=== PATIENT | female | born 1950 | race Caucasian/White ===

== ENCOUNTER → 2019-03-25 | Day surgery (SDC) | payer MEDICARE ==
[2019-03-23 09:13] VITALS: BMI 24.3
[~2019-03-25] MED LIST: LACTATED RINGERS 1,000 ML IV SCH; PROPOFOL 10 MG/ML 20 ML VIAL IV ONE
--- NOTE | 2019-03-25 09:11 | P.PCN ---
Date of Procedure: 03/25/19 Procedure(s) Performed: BRIEF HISTORY: Patient is a 68-year-old pleasant white female scheduled for an elective colonoscopy as a part of screening for colorectal neoplasia. PROCEDURE PERFORMED: Colonoscopy. PREOPERATIVE DIAGNOSIS: Screening for colon cancer. IV sedation per Anesthesia. PROCEDURE: After informed consent was obtained, the patient, was brought into the endoscopy unit. IV sedation was administered by Anesthesia under continuous monitoring. Digital rectal examination was normal. Initially the Olympus CF-160 flexible video colonoscope was then inserted in the rectum, gradually advanced into the cecum without any difficulty. Careful examination was performed as the scope was gradually being withdrawn. Ileocecal valve and the appendiceal orifice were visualized and appeared normal. Prep was excellent. Mucosa of the cecum, ascending colon, transverse colon, descending colon, sigmoid colon, and rectum appeared normal. Retroflexion was performed in the rectum and no lesions were seen. The patient tolerated the procedure well. IMPRESSION: Normal-appearing colon from rectum to cecum with no evidence of colorectal neoplasia . RECOMMENDATIONS: Findings of this examination were discussed with the patient well as her family. She was advised to have a repeat screening colonoscopy in 10 years.
[2019-03-25 09:51] VITALS: RESP 18
[2019-03-25 09:52] VITALS: BP 149/84; PULSE 72
== END | disposition home or self-care (01) ==
LOC: ORWHC2ENDO 07:26
PROVIDERS: ATTEND Internal Medicine Gastroenterology
DX: Z12.11 Encounter for screening for malignant neoplasm of colon (principal); I10 Essential (primary) hypertension; G47.33 Obstructive sleep apnea (adult) (pediatric); Z99.89 Dependence on other enabling machines and devices; Z87.891 Personal history of nicotine dependence; F41.9 Anxiety disorder, unspecified; F32.9 Major depressive disorder, single episode, unspecified; E07.9 Disorder of thyroid, unspecified; Z79.890 Hormone replacement therapy; Z79.899 Other long term (current) drug therapy; Z88.1 Allergy status to other antibiotic agents
CPT/HCPCS: J2704; G0121

== ENCOUNTER → 2020-01-10 | Outpatient (CLI) | payer MEDICARE ==
--- NOTE | 2020-01-11 12:34 | MM ---
Reason for exam: screening (asymptomatic). Last mammogram was performed 2 years and 8 months ago. History: Patient is postmenopausal, history of other cancer, and had first child at age 31. Stereotactic core biopsy of the left breast. Benign lumpectomy of the right breast. Took estrogen for 10 years. Took progesterone for 10 years. Physical Findings: A clinical breast exam by your physician is recommended on an annual basis and results should be correlated with mammographic findings. MG 3D Screening Mammo W/Cad Bilateral CC and MLO view(s) were taken. Prior study comparison: May 20, 2017, mammogram. April 09, 2016, mammogram. The breast tissue is heterogeneously dense. This may lower the sensitivity of mammography. Benign appearing bilateral calcifications. No suspicious abnormality on the left. Right upper inner quadrant focal asymmetry at middle depth. ASSESSMENT: Incomplete: need additional imaging evaluation, BI-RAD 0 RECOMMENDATION: Special view mammogram of the right breast. If lesion persists on supplemental views, image directed ultrasound is recommended. [facility] will attempt to contact patient to return for supplemental views and ultrasound if indicated.
== END | disposition home or self-care (01) ==
LOC: RADMAMWWP 13:03
PROVIDERS: ATTEND Family Medicine
DX: Z12.31 Encounter for screening mammogram for malignant neoplasm of breast (principal)
CPT/HCPCS: 77063; 77067

== ENCOUNTER → 2020-01-17 | Outpatient (CLI) | payer MEDICARE ==
--- NOTE | 2020-01-18 10:36 | MM ---
Reason for exam: additional evaluation requested from abnormal screening. Last mammogram was performed less than 1 month ago. History: Patient is postmenopausal, history of other cancer, and had first child at age 31. Stereotactic core biopsy of the left breast. Benign lumpectomy of the right breast. Took estrogen for 10 years. Took progesterone for 10 years. Physical Findings: Nurse did not find any significant physical abnormalities on exam. MG 3D Work Up W/Cad RT Spot compression CC, spot compression MLO, and LM view(s) were taken of the right breast. Prior study comparison: January 10, 2020, bilateral MG 3d screening mammo w/cad. May 20, 2017, mammogram. There are scattered fibroglandular densities. The focal asymmetry does not persist. No significant new findings when compared with previous films. These results were verbally communicated with the patient and result sheet given to the patient on 01/17/20. ASSESSMENT: Negative, BI-RAD 1 RECOMMENDATION: Return to routine screening mammogram schedule for both breasts.
== END | disposition home or self-care (01) ==
LOC: RADMAMWWP 07:06
PROVIDERS: ATTEND Family Medicine
DX: R92.8 Other abnormal and inconclusive findings on diagnostic imaging of breast (principal)
CPT/HCPCS: 77065; G0279; 77061

== ENCOUNTER → 2020-08-02 | Outpatient (CLI) | payer MEDICARE ==
--- NOTE | 2020-08-02 13:09 | MR ---
EXAMINATION TYPE: MR angio head wo con DATE OF EXAM: 08/02/2020 COMPARISON: MR brain 07/17/2020 from outside institution HISTORY: Disorders of arteries, migraines, weakness TECHNIQUE: Time of flight images focusing on the [place] of [place] were performed without contrast. 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 Atrophic left A1 segment of the internal carotid artery. No evident aneurysm, dissection, or embolus. Mild asymmetry of caliber of the internal carotid arteries is note d which likely accounts for the findings on patient's brain MRI. IMPRESSION: Congenital variants. No evident aneurysm.
== END | disposition home or self-care (01) ==
LOC: RADMRIMAIN 06:40
PROVIDERS: ATTEND Family Medicine
DX: I77.9 Disorder of arteries and arterioles, unspecified (principal)
CPT/HCPCS: 70544

== ENCOUNTER → 2020-12-14 | Outpatient (CLI) | payer MEDICARE ==
--- NOTE | 2020-12-14 21:16 | MR ---
EXAMINATION TYPE: MR cervical spine wo con DATE OF EXAM: 12/14/2020 COMPARISON: HISTORY: Recurrent falls, neck pain, off balance, abnormal gait, paraparesis and headaches for 10 yea rs. TECHNIQUE: Multiplanar, multisequence images of the cervical spine were acquired. C2-C3: No evidence for degenerative disc disease. No disc bulge/herniation or protrusion. No Canal stenosis. Foramina are patent bilaterally. C3-C4: No evidence for degenerative disc disease. No disc bulge/herniation or protrusion. No Canal stenosis. Foramina are patent bilaterally. C4-C5: No evidence for degenerative disc disease. No disc bulge/herniation or protrusion. No Canal stenosis. Foramina are patent bilaterally. C5-C6: Minimal posterior disc bulge causes only slight anterior mass effect on the thecal sac. No for aminal encroachment. C6-C7: Posterior extension of endplate disc complex causes mild anterior mass effect on the thecal sa c, uncovertebral joint hypertrophy results in some mild bilateral foraminal encroachment. C7-T1: Minimal posterior disc bulge is present. There is some facet arthropathy change. No significan t foraminal encroachment. Cervical segments are intact. There is normal alignment. Cervical spinal cord is of normal signal. Craniovertebral junction relationships are within normal limits. The tip of C2 appears absent. Cerv ical vertebral bodies show preserved height and alignment. There is spondylosis most notably at C5-6 and C6-7, there is associated loss of disc height and signal at C4-5, C5-6 and C6-7, C7-T1. There is no significant spinal stenosis. IMPRESSION: The odontoid process of C2 appears absent, possibly a chronic finding, there are degenerative disc ch anges without significant spinal stenosis. Findings suggest dens hypoplasia. Consider CT correlation.
== END | disposition home or self-care (01) ==
LOC: RADMRIMAIN 16:43
PROVIDERS: ATTEND Psychiatry & Neurology Neurology
DX: M50.13 Cervical disc disorder with radiculopathy, cervicothoracic region (principal); M99.71 Connective tissue and disc stenosis of intervertebral foramina of cervical region; G82.20 Paraplegia, unspecified
CPT/HCPCS: 72141

== ENCOUNTER → 2021-04-18 | Outpatient (CLI) | payer MEDICARE ==
--- NOTE | 2021-04-19 08:48 | US ---
EXAMINATION TYPE: US kidneys/renal and bladder DATE OF EXAM: 04/18/2021 COMPARISON: NONE CLINICAL HISTORY: 70-year-old female R94.4 Abnormal results of kidney function studies; bladder suspe nsion 2 years ago. TECHNIQUE: Multiple sonographic images of the kidneys and bladder are obtained. FINDINGS: EXAM MEASUREMENTS: Right Kidney: 9.8 x 5.9 x 4.7 cm Left Kidney: 10.8 x 4.3 x 3.8 cm Right Kidney: superior mid cortical cyst seen =2.2 x 2.0 x 2.2cm; inferior cortical cyst seen = 3.3 x 4.7 x 2.4cm. No hydronephrosis. Left Kidney: No hydronephrosis or masses seen Bladder: Partially distended bladder shows no gross abnormality. Bilateral Jets seen: no, only left ureteral jet was seen within 3 minute observation Post Void Residual Volume: patient not able to void after 10 minutes IMPRESSION: 1. No hydronephrosis. A couple benign renal cysts on the right measuring up to 4.7 cm. 2. The bladder is partially distended and the patient is unable to void after 10 minutes of waiting. If concern for urinary retention, consider a follow-up bladder ultrasound after more optimally disten ding the bladder.
== END | disposition home or self-care (01) ==
LOC: RADUSWWP 16:11
PROVIDERS: ATTEND Family Medicine
DX: N28.1 Cyst of kidney, acquired (principal)
CPT/HCPCS: 76770

== ENCOUNTER 2021-12-14 10:17 | Inpatient (IN) | payer MEDICARE ==
[2021-12-14] MEDS ORDERED: MORPHINE SULFATE 4 MG/ML SYRINGE IV STA (13:10)
--- NOTE | 2021-12-14 13:13 | ED ---
General Adult HPI - General Chief complaint: Back Pain/Injury Stated complaint: Fall,Back Spasms Time Seen by Provider: 12/14/21 12:41 Source: patient Mode of arrival: EMS Limitations: no limitations - History of Present Illness Initial comments: Dictation was produced using [employer] dictation software. please excuse any grammatical, word or spelling errors. Chief Complaint: 71-year-old female presents to the emergency Department with back pain History of Present Illness: Patient's 71-year-old female presents emergency department for ongoing back pain. She was seen at [facility] yesterday. Yesterday prior to being seen in the emergency department she fell. There are 4 steps to patient's front door she is climbing up the steps when she fell back landing on her lower back and buttocks. She is brought to [facility] where they did perform CT head and C-spine and x-rays all seemed unremarkable. She was sent home. She was by herself her daughter brought her to our emergency department because she didn't like that this morning she was unable to perform activities of daily living due to pain. Patient states the pain is to her lower lumbar midline back. States that it's severely painful whenever she moves. The ROS documented in this emergency department record has been reviewed and confirmed by me. Those systems with pertinent positive or negative responses have been documented in the HPI. All other systems are other negative and/or noncontributory. PHYSICAL EXAM: General Impression: Alert and oriented x3, not in acute distress HEENT: Normocephalic atraumatic, extra-ocular movements intact, pupils equal and reactive to light bilaterally, mucous membranes moist. Cardiovascular: Heart regular rate and rhythm Chest: Able to complete full sentences, no retractions, no tachypnea Abdomen: abdomen soft, non-tender, non-distended, no organomegaly Musculoskeletal: Pulses present and equal in all extremities, no peripheral edema Back: Palpatory tenderness to the midline L3-L4 region Motor: no focal deficits noted Neurological: CN II-XII grossly intact, no focal motor or sensory deficits noted Skin: Intact with no visualized rashes Psych: Normal affect and mood ED course: 71-year-old female presents to emergency department for back pain. Vital Signs upon arrival are within acceptable limits. Patient given analgesics. CT of the thoracic and lumbar spine shows no evidence of trauma to the thoracic or lumbar spine. There are does appear to be several areas of degenerative changes. Documentation from [facility] was obtained via fax. Patient was in fact seen in the emergency department yesterday. She had a chest x-ray and a lumbar spine x-ray that were both negative for traumatic injuries. Should his CT of her cervical spine no evidence of issues. CT brain with no acute processes. Daughter was insistent upon patient be admitted due to patient's stability and t hat she lives home by herself. Daughter reports that they do not have family or friends I can help care for the patient over the weekend. Daughter states she'll be out of town for her son's baseball game. Spoke with sound physician, Dr. Melendez who is willing to accept patient's care to observation. - Related Data Home Medications Medication Instructions Recorded Confirmed Allergy Otc 1 tab PO DAILY 03/23/19 03/25/19 Celecoxib [CeleBREX] 200 mg PO DAILY 03/23/19 03/25/19 Ezetimibe [Zetia] 10 mg PO DAILY 03/23/19 03/25/19 Levothyroxine Sodium [Synthroid] 75 mcg PO DAILY 03/23/19 03/25/19 PARoxetine HCL [Paxil] 40 mg PO DAILY 03/23/19 03/25/19 buPROPion HCL [Wellbutrin XL] 300 mg PO DAILY 03/23/19 03/25/19 Allergies Allergy/AdvReac Type Severity Reaction Status Date / Time erythromycin base AdvReac Unknown Abdominal Verified 12/14/21 14:15 Pain Review of Systems ROS Statement: Those systems with pertinent positive or pertinent negative responses have been documented in the HPI. ROS Other: All systems not noted in ROS Statement are negative. Past Medical History Past Medical History: Cancer, Hypertension, Osteoarthritis (OA), Sleep Apnea/CPAP/BIPAP, Thyroid Disorder Additional Past Medical History / Comment(s): C-PAP MACHINE , PAST HX OF HTN, SCOLIOSIS, BACK PAIN, SQUAMOUS CELL SKIN CANCER History of Any Multi-Drug Resistant Organisms: None Reported Past Surgical History: Bladder Surgery, Hysterectomy, Joint Replacement Additional Past Surgical History / Comment(s): LEFT ELBOW FX Past Anesthesia/Blood Transfusion Reactions: No Reported Reaction, Motion Sickness Past Psychological History: Anxiety, Depression Smoking Status: Never smoker Past Alcohol Use History: Occasional Past Drug Use History: None Reported - Past Family History Brother(s) Family Medical History: Cancer Additional Family Medical History / Comment(s): PROSTATE CANCER General Exam Limitations: no limitations Course Vital Signs 12/14/21 10:38 Temperature 98.2 F Pulse Rate 81 Respiratory 18 Rate Blood Pressure 162/91 O2 Sat by Pulse 97 Oximetry Disposition Clinical Impression: Debility Disposition: ADMITTED IP TO THIS HOSP Condition: Fair Referrals: Adriel Leon MD [Primary Care Provider] - 1-2 days Decision Time: 14:54
[2021-12-14] MEDS ORDERED: MORPHINE SULFATE 4 MG/ML SYRINGE IM STA (13:33)
--- NOTE | 2021-12-14 13:57 | CT ---
EXAMINATION TYPE: CT thor lumbar spine wo con DATE OF EXAM: 12/14/2021 COMPARISON: None HISTORY: Fall, back spasms CT DLP: 1250.2 mGycm Automated exposure control for dose reduction was used. FINDINGS: CT thoracic spine: The thoracic vertebral segments are normal in height and alignment and there is no fracture or sublux ation. There is moderate degenerative disc disease in the lower thoracic spine at multiple levels with parti al intervertebral disc calcification and marked spondylosis. There are also significant degenerative changes within multiple facet joints in the lower thoracic spine there is no bony encroachment of the thoracic spinal canal. The paraspinal soft tissues are unremarkable. CT lumbar spine: The lumbar vertebral segments are normal in height and there is no evidence of fracture. There is a m ild retrolisthesis of L2 on L3 and there is advanced degenerative disc disease the L2-3 disc with mar ked disc space narrowing, vacuum phenomena and spondylosis. The remaining intervertebral discs are no rmal in height. There is mild degenerative disease at the L3-4 level where there are mild discogenic endplate changes and vacuum phenomena along with mild disc space narrowing. There are marked degenerative changes of facet joints in the lower lumbar spine greatest at the L4-5 and L5-S1 levels. The sacrum and SI joints normal and there is no evidence of fracture of the sacrum or visualized pelvis. IMPRESSION: 1. NO EVIDENCE OF ACUTE TRAUMA WITHIN THE THORACIC OR LUMBAR SPINE. 2. DEGENERATIVE CHANGES DESCRIBED ABOVE.
[2021-12-14] MEDS ORDERED: MORPHINE SULFATE 4 MG/ML SYRINGE IV PRN (14:52)
[2021-12-14] MEDS ORDERED: NALOXONE 0.4 MG/ML 1 ML VIAL IV PRN (14:52)
[2021-12-14] MEDS ORDERED: ACETAMINOPHEN TAB 325 MG TAB PO PRN (15:15)
--- NOTE | 2021-12-14 15:36 | P.HPIM ---
History of Present Illness H&P Date: 12/14/21 Chief Complaint: Back pain Patient is a 71-year-old female with PMH of hypothyroidism, depression and anxiety that presents the ED for intractable back pain. Patient reports having a mechanical fall as she was attempting to walk up stairs and lost her footing yesterday. She fell backwards and hit her lower back. She denies any head trauma or loss of consciousness. She went to [facility] where workup was unrevealing. She was subsequent discharge home. Since going home yesterday, she has experienced worsening lower back pain that is been difficult for her to take care of ADLs and IADLs. This prompted her daughter to bring the patient back to the hospital. Patient currently reports lower back pain, 12 out of 10 in severity, no radiating features, throbbing in nature. Patient denies any bladder or bowel incontinence. She denies any saddle anesthesia. She denies any headache, lower extremity edema, nausea or vomiting, fever or chills, cough, chest pain, shortness of breath, palpitations, changes in urination or bowel habits. No changes in appetite or weight. She denies any dizziness, numbness/weakness/tingling of the extremities. In the ED, her vital signs were stable. CT thoracic and lumbar spine was obtained which showed no evidence of acute trauma, degenerative changes. Patient is admitted as a social admit, unable to take care of ADLs and IADLs with PT and OT consultation. Review of systems is obtained and is negative except above. General: [non toxic], [no distress], [appears at stated age] Derm: [warm], [dry] Head: [atraumatic], [normocephalic], [symmetric] Eyes: [EOMI], [no lid lag], [anicteric sclera] Mouth: [no lip lesion], [mucus membranes moist] Cardiovascular: [S1S2 reg], [no murmur] Lungs: [CTA bilateral], [no rhonchi, no rales] , [no accessory muscle use] Abdominal: [soft], [ nontender to palpation], [no guarding], [no appreciable organomegaly] Ext: [no gross muscle atrophy], [no edema], [no contractures], [Tenderness to palpation over the midline L3-L4 with bilateral paraspinal tenderness] Neuro: [ CN II-XI grossly intact], [no focal neuro deficits] Psych: [Alert], [oriented], [appropriate affect] Assessment and Plan #Acute lower back pain likely musculoskeletal sprain #Mechanical fall #Debility with inability to take care of ADLs and IADLs #[place] Chronic conditions: Hypothyroidism, depression and anxiety Patient presents with intractable lower back pain and inability to take care of ADLs and IADLs. She does live alone. Her pain will be controlled with Tylenol, [place] and morphine as needed. Fall precautions are in place. PT and OT will be consulted to work with this patient. CBC and BMP will be obtained tomorrow morning. Patient will be restarted on Synthroid for history of hypothyroidism. Restart bupropion and paroxetine for history of depression/anxiety. DVT prophylaxis: [Heparin, SCD] Discussed with: [Patient and ED physician] Anticipated discharge: [1-2 days] Anticipated discharge place: [Home versus [facility]] A total of [45] minutes was spent on the care of this complex patient more than 50% of the time was spent in counseling and care coordination. Patient names her daughter decision maker if she can't make decisions for herself. Patient would like to be NO CODE. Past Medical History Past Medical History: Cancer, Hypertension, Osteoarthritis (OA), Sleep Apnea/CPAP/BIPAP, Thyroid Disorder Additional Past Medical History / Comment(s): C-PAP MACHINE , PAST HX OF HTN, SCOLIOSIS, BACK PAIN, SQUAMOUS CELL SKIN CANCER History of Any Multi-Drug Resistant Organisms: None Reported Past Surgical History: Bladder Surgery, Hysterectomy, Joint Replacement Additional Past Surgical History / Comment(s): LEFT ELBOW FX Past Anesthesia/Blood Transfusion Reactions: No Reported Reaction, Motion Sickness Past Psychological History: Anxiety, Depression Smoking Status: Never smoker Past Alcohol Use History: Occasional Past Drug Use History: None Reported - Past Family History Brother(s) Family Medical History: Cancer Additional Family Medical History / Comment(s): PROSTATE CANCER Medications and Allergies Home Medications Medication Instructions Recorded Confirmed Type Levothyroxine Sodium [Synthroid] 75 mcg PO HS 03/23/19 12/14/21 History PARoxetine HCL [Paxil] 40 mg PO HS 03/23/19 12/14/21 History buPROPion HCL [Wellbutrin XL] 300 mg PO HS 03/23/19 12/14/21 History Diclofenac Sodium [Voltaren] 75 mg PO BID 12/14/21 12/14/21 History Allergies Allergy/AdvReac Type Severity Reaction Status Date / Time erythromycin base AdvReac Unknown Abdominal Verified 12/14/21 14:15 Pain Physical Exam Vitals: Vital Signs Temp Pulse Resp BP Pulse Ox 12/14/21 10:38 98.2 F 81 18 162/91 97 Intake and Output 12/14/21 12/14/21 12/14/21 06:59 14:59 22:59 Other: Weight 72.575 kg
[2021-12-14] MEDS: MORPHINE SULFATE 2 MG/ML SYRINGE IV PRN ×2 (16:02→20:36)
[2021-12-14] MEDS: SODIUM CHLORIDE 0.9% 1,000 ML IV SCH (16:02)
[2021-12-14] MEDS: HEPARIN SODIUM,PORCINE/PF 5,000 UNIT/0.5 ML SYRINGE SQ SCH (16:02)
[2021-12-14] MEDS: buPROPion XL 300 MG TAB.ER.24H PO SCH (20:37)
[2021-12-14] MEDS: PARoxetine 20 MG TAB PO SCH (20:37)
[2021-12-14] MEDS: LEVOTHYROXINE 75 MCG TAB PO SCH (20:37)
[2021-12-15] MEDS: HEPARIN SODIUM,PORCINE/PF 5,000 UNIT/0.5 ML SYRINGE SQ SCH ×4 (01:36→20:13)
[2021-12-15] MEDS: MORPHINE SULFATE 2 MG/ML SYRINGE IV PRN ×3 (01:36→19:52)
[2021-12-15] MEDS: HYDROcodone/APAP 5-325MG 1 EACH TAB PO PRN ×2 (08:04→16:20)
[2021-12-15 08:57] LABS: Basophils # (A) 0.03 X 10*3/uL (0.00-0.10); Basophils % (A) 0.5 %; Eosinophils # (A) 0.21 X 10*3/uL (0.04-0.35); Eosinophils % (A) 3.7 %; HCT 38.7 % (37.2-46.3); HGB 12.2 g/dL (12.0-15.0); Immature Grans, Automated 0.4 %; Lymphocytes # (A) 0.74 X 10*3/uL (0.90-5.00); Lymphocytes % (A) 13.1 %; MCHC 31.5 g/dL (32.0-37.0); MCV 98.5 fL (80.0-97.0); Mean Platelet Volume 11.6 fL (9.5-12.2); Monocytes # (A) 0.93 X 10*3/uL (0.20-1.00); Monocytes % (A) 16.4 %; NRBC Per 100 WBC 0 /100 WBCS (0.0-0.0); Neutrophils # (A) 3.74 X 10*3/uL (1.80-7.70); Neutrophils % (A) 65.9 %; Platelet Count 165 X 10*3/uL (140-440); RBC 3.93 X 10*6/uL (4.10-5.20); RDW 12.4 % (11.5-14.5); WBC 5.67 X 10*3/uL (4.50-10.00)
[2021-12-15 11:40] LABS: African American GFR (CKD) 73.5 (60.0-200.0); Anion Gap 10.8 mmol/L (10.00-18.00); BUN/Creat Ratio 18.11 Ratio (12.00-20.00); Blood Urea Nitrogen 16.3 mg/dL (9.0-27.0); Calcium 8.6 mg/dL (8.7-10.3); Carbon Dioxide 25.2 mmol/L (20.0-27.5); Non-African American GFR(CKD) 63.4 (60.0-200.0)
--- NOTE | 2021-12-15 13:55 | P.PN ---
Subjective Progress Note Date: 12/15/21 Principal diagnosis: Debility Patient was seen and examined. No acute events overnight. Patient continues to report back pain. Using morphine and [place] regularly. Fearful of going home given her symptoms. She is concerned about her ability to performed ADLs and IADLs. Objective - Vital Signs Vital signs: Vital Signs Temp 98.2 F 12/15/21 07:00 Pulse 70 12/15/21 07:00 Resp 16 12/15/21 07:00 BP 194/93 12/15/21 07:00 Pulse Ox 94 L 12/15/21 07:00 Intake & Output 12/14/21 12/15/21 12/15/21 18:59 06:59 18:59 Intake Total 59 Balance 59 Weight 72.575 kg Intake: Oral 59 Other: Voiding Method Bedside Commode Bedside Commode Diaper External Catheter # Voids 1 - Exam General: [non toxic], [no distress], [appears at stated age] Derm: [warm], [dry] Head: [atraumatic], [normocephalic], [symmetric] Eyes: [EOMI], [no lid lag], [anicteric sclera] Mouth: [no lip lesion], [mucus membranes moist] Cardiovascular: [S1S2 reg], [no murmur] Lungs: [CTA bilateral], [no rhonchi, no rales] , [no accessory muscle use] Ext: [no gross muscle atrophy], [no edema], [no contractures], [Tenderness to palpation over the midline L3-L4 with bilateral paraspinal tenderness] Neuro: [no focal neuro deficits] Psych: [Alert], [oriented], [appropriate affect] - Labs CBC & Chem 7: 12/15/21 06:28 12/15/21 06:28 Labs: Abnormal Lab Results - Last 24 Hours (Table) 12/15/21 12/15/21 Range/Units 06:28 06:28 RBC 3.93 L (4.10-5.20) X 10*6/uL MCV 98.5 H (80.0-97.0) fL MCHC 31.5 L (32.0-37.0) g/dL Lymphocytes # 0.74 L (0.90-5.00) X 10*3/uL Calcium 8.6 L (8.7-10.3) mg/dL Assessment and Plan Assessment: #Acute lower back pain likely musculoskeletal sprain #Mechanical fall #Debility with inability to take care of ADLs and IADLs #Scoliosis #Macrocytosis Chronic conditions: Hypothyroidism, depression and anxiety Patient presents with intractable lower back pain and inability to take care of ADLs and IADLs. She does live alone. Her pain will be controlled with Tylenol, [place] and morphine as needed. Fall precautions are in place. PT and OT will be consulted to work with this patient. Patient will be restarted on Synthroid for history of hypothyroidism. Restart bupropion and paroxetine for history of depression/anxiety. B12 and Folic acid will be ordered. DVT prophylaxis: [Heparin, SCD] Discussed with: [Patient] Anticipated discharge place: [Home versus [facility]] A total of [45] minutes was spent on the care of this complex patient more than 50% of the time was spent in counseling and care coordination. Patient names her daughter decision maker if she can't make decisions for herself. Patient would like to be NO CODE. Patient with continued back pain. PT and OT consult not available today. She is pending clinical improvement. May need SNF. Will switch patient to inpatient as she is an unsafe discharge home.
[2021-12-15] MEDS: SODIUM CHLORIDE 0.9% 1,000 ML IV SCH (19:47)
[2021-12-15] MEDS: LEVOTHYROXINE 75 MCG TAB PO SCH (19:52)
[2021-12-15] MEDS: PARoxetine 20 MG TAB PO SCH (19:52)
[2021-12-15] MEDS: buPROPion XL 300 MG TAB.ER.24H PO SCH (19:52)
[2021-12-16] MEDS: MORPHINE SULFATE 2 MG/ML SYRINGE IV PRN ×3 (04:37→21:20)
[2021-12-16] MEDS: HYDROcodone/APAP 5-325MG 1 EACH TAB PO PRN ×2 (07:22→17:29)
[2021-12-16] MEDS: HEPARIN SODIUM,PORCINE/PF 5,000 UNIT/0.5 ML SYRINGE SQ SCH ×3 (07:23→21:19)
--- NOTE | 2021-12-16 10:53 | P.PN ---
Subjective Progress Note Date: 12/16/21 Principal diagnosis: Debility Patient was seen and examined. No acute events overnight. Patient continues to report back pain, 10/10 with movement. Using morphine and Babylon regularly. Fearful of going home given her symptoms. She is concerned about her ability to performed ADLs and IADLs. Objective - Vital Signs Vital signs: Vital Signs Temp 97.7 F 12/16/21 07:00 Pulse 77 12/16/21 07:00 Resp 16 12/16/21 07:00 BP 188/87 12/16/21 07:00 Pulse Ox 93 L 12/16/21 07:00 Intake & Output 12/15/21 12/16/21 12/16/21 18:59 06:59 18:59 Intake Total 179 118 Output Total 1200 Balance 179 -1200 118 Intake: Oral 179 118 Output: Urine 1200 Other: Voiding Method Bedside Commode External Catheter Diaper External Catheter # Voids 1 1 # Bowel Movements 0 - Exam General: [non toxic], [no distress], [appears at stated age] Derm: [warm], [dry] Head: [atraumatic], [normocephalic], [symmetric] Eyes: [EOMI], [no lid lag], [anicteric sclera] Mouth: [no lip lesion], [mucus membranes moist] Cardiovascular: [S1S2 reg], [no murmur] Lungs: [CTA bilateral], [no rhonchi, no rales] , [no accessory muscle use] Ext: [no gross muscle atrophy], [no edema], [no contractures], [Tenderness to palpation over the midline L3-L4 with bilateral paraspinal tenderness] Neuro: [no focal neuro deficits] Psych: [Alert], [oriented], [appropriate affect] - Labs CBC & Chem 7: 12/15/21 06:28 12/15/21 06:28 Labs: Abnormal Lab Results - Last 24 Hours (Table) 12/15/21 Range/Units 06:28 Calcium 8.6 L (8.7-10.3) mg/dL Assessment and Plan Assessment: #Acute lower back pain likely musculoskeletal sprain #Mechanical fall #Debility with inability to take care of ADLs and IADLs #Scoliosis #Macrocytosis Chronic conditions: Hypothyroidism, depression and anxiety Patient presents with intractable lower back pain and inability to take care of ADLs and IADLs. She does live alone. Her pain will be controlled with Tylenol, Babylon and morphine as needed. Lidocaine patch and Diclofenac gel will be added to her pain regimen. Fall precautions are in place. PT and OT will be consulted to work with this patient. Orthopedic surgery consulted for further management. Patient will be restarted on Synthroid for history of hypothyroidism. Restart bupropion and paroxetine for history of depression/anxiety. B12 and Folic acid will be ordered. DVT prophylaxis: [Heparin, SCD] Discussed with: [Patient] Anticipated discharge place: [Home versus [facility]] A total of [20] minutes was spent on the care of this complex patient more than 50% of the time was spent in counseling and care coordination. Patient names her daughter decision maker if she can't make decisions for herself. Patient would like to be NO CODE. Patient with continued back pain. PT and OT consult not available today. Orthopedic surgery consulted. She is pending clinical improvement. May need SNF.
[2021-12-16] MEDS: LIDOCAINE 5% PATCH TOPICAL SCH (11:41)
[2021-12-16] MEDS: DICLOFENAC SODIUM GEL 100 GM TUBE TOPICAL SCH ×3 (13:04→21:22)
[2021-12-16] MEDS: SODIUM CHLORIDE 0.9% 1,000 ML IV SCH (14:30)
[2021-12-16] MEDS: LEVOTHYROXINE 75 MCG TAB PO SCH (21:20)
[2021-12-16] MEDS: buPROPion XL 300 MG TAB.ER.24H PO SCH (21:20)
[2021-12-16] MEDS: PARoxetine 20 MG TAB PO SCH (21:20)
[2021-12-17] MEDS: MORPHINE SULFATE 2 MG/ML SYRINGE IV PRN ×2 (06:54→21:07)
[2021-12-17] MEDS: HEPARIN SODIUM,PORCINE/PF 5,000 UNIT/0.5 ML SYRINGE SQ SCH ×3 (08:41→21:06)
[2021-12-17] MEDS: DICLOFENAC SODIUM GEL 100 GM TUBE TOPICAL SCH ×4 (08:42→21:08)
[2021-12-17] MEDS: LIDOCAINE 5% PATCH TOPICAL SCH (08:42)
[2021-12-17] MEDS: HYDROcodone/APAP 5-325MG 1 EACH TAB PO PRN (09:24)
[2021-12-17] MEDS: hydrALAZINE HCL 10 MG TAB PO PRN (10:04)
--- NOTE | 2021-12-17 10:54 | P.CNOR ---
History of Present Illness - [facility] Consult date: 12/17/21 Requesting physician: German Melendez Consult reason: low back pain, back pain (Thoracolumbar pain status post fall) History of present illness: Patient is very pleasant 71-year-old female who is seen in bedside for further evaluation of her thoracic and lumbar spines. She states she sustained a fall on 12/13/2021 when she lost her balance outside her house falling on concrete. Since that time she has had increased thoracolumbar pain and lower lumbar pain. She was taken to [facility] for further evaluation. Imaging was taken at the time without significant findings. She was discharged home. Her pain continued to be significant and she presented to [facility] for further evaluation. CT imaging of the thoracic and lumbar spine wa s taken showing significant degenerative changes without obvious fracture. Since her admittance to hospital on 12/14/2021 she states her thoracolumbar pain lumbar pain is not improved. She is currently receiving multiple medications for pain control including hydrocodone 5 mg/325 mg, morphine, lidocaine patch, and acetaminophen 650 mg. Patient states her pain stays specific to her thoracolumbar and lumbar spine. Her pain is exacerbated with coughing, sneezing, and bending activities. She is not experiencing any lower extremity weakness or radiculopathy bilaterally. She has good range of motion of her bilateral lower extremities. She is eating and voiding without difficulty. He does not feel her pain is well enough controlled that she could be discharged home. She's currently being seen and examined by medicine who is managing her medications. Patient is having difficulty with hypertension. Nursing states patient has been started on hydralazine. Patient's other medical conditions include macrocytosis, hypothyroidism, depression, and anxiety. Past Medical History Past Medical History: Cancer, Hypertension, Osteoarthritis (OA), Sleep Apnea/CPAP/BIPAP, Thyroid Disorder Additional Past Medical History / Comment(s): C-PAP MACHINE , PAST HX OF HTN, SCOLIOSIS, BACK PAIN, SQUAMOUS CELL SKIN CANCER History of Any Multi-Drug Resistant Organisms: None Reported Past Surgical History: Bladder Surgery, Hysterectomy, Joint Replacement Additional Past Surgical History / Comment(s): LEFT ELBOW FX Past Anesthesia/Blood Transfusion Reactions: No Reported Reaction, Motion Sickness Past Psychological History: Anxiety, Depression Smoking Status: Never smoker Past Alcohol Use History: Occasional Past Drug Use History: None Reported - Past Family History Brother(s) Family Medical History: Cancer Additional Family Medical History / Comment(s): PROSTATE CANCER Medications and Allergies Home Medications Medication Instructions Recorded Confirmed Type Levothyroxine Sodium [Synthroid] 75 mcg PO HS 03/23/19 12/14/21 History PARoxetine HCL [Paxil] 40 mg PO HS 03/23/19 12/14/21 History buPROPion HCL [Wellbutrin XL] 300 mg PO HS 03/23/19 12/14/21 History Diclofenac Sodium [Voltaren] 75 mg PO BID 12/14/21 12/14/21 History Allergies Allergy/AdvReac Type Severity Reaction Status Date / Time erythromycin base AdvReac Unknown Abdominal Verified 12/14/21 14:15 Pain Physical Examination Physical exam: Patient is awake, alert, and oriented 3 Vital signs stable Good chest excursion with deep inspiration and expiration Abdomen soft nontender Examination of thoracic and lumbar spine reveals skin is intact with no abrasions, lacerations, or bruises; no erythema, purulence or signs of infection Increased kyphosis at the thoracic spine Evidence of a lidocaine patch along the midline near the thoracolumbar junction Pain with palpation along the midline at the thoracolumbar junction and at the lower lumbar spine Dorsiflexion, plantarflexion, and extensor hallucis longus positive sustained bilaterally Lower extremity strength 5/5 bilaterally Patient is able to perform good active range of motion of bilateral lower extremities independently Straight leg test negative bilateral lower extremities No signs or symptoms of DVT; no calf pain No pain with internal and external rotation of the hips bilaterally Neurovascularly intact Results Pertinent studies: CT of the thoracic and lumbar spine taken on 12/14/2021: T12 evidence of some bony change within the vertebral body; T9-12 calcification of the intervertebral disc space and possible autofusion at these levels with large anterior osteophytic spurring; L1-2 degenerative disc disease; L2-3 significant degenerative disc disease, retrolisthesis, and vacuum disc phenomenon; L3-4 retrolisthesis - Labs Labs: Abnormal Lab Results - Last 24 Hours (Table) 12/15/21 Range/Units 06:28 Folate 4.20 L (4.40-31.00) ng/mL H & H 12/15/21 Range/Units 06:28 Hgb 12.2 (12.0-15.0) g/dL Hct 38.7 (37.2-46.3) % Result Diagrams: 12/15/21 06:28 12/15/21 06:28 Assessment and Plan Assessment: Assessment: Acute traumatic thoracolumbar pain and lower lumbar pain status post fall T12 bony change within the vertebral body T9-12 calcification of the intervertebral disc space and possible autofusion at these levels with large anterior osteophytic spurring L1-2 degenerative disc disease L2-3 significant degenerative disc disease, retrolisthesis, and vacuum disc phenomenon L3-4 retrolisthesis Difficulty with regular activities of daily living due to thoracolumbar and lower lumbar pain Hypertension Macrocytosis Hypothyroidism Depression Anxiety (1) Acute low back pain due to trauma Current Visit: Yes Status: Acute Code(s): M54.50 - LOW BACK PAIN, UNSPECIFIED; G89.11 - ACUTE PAIN DUE TO TRAUMA SNOMED Code(s): 979555805 (2) Spondylolisthesis, lumbar region Current Visit: Yes Status: Acute Code(s): M43.16 - SPONDYLOLISTHESIS, LUMBAR REGION SNOMED Code(s): 470356713757273 (3) Lumbar degenerative disc disease Current Visit: Yes Status: Acute Code(s): M51.36 - OTHER INTERVERTEBRAL DISC DEGENERATION, LUMBAR REGION SNOMED Code(s): 62440197 (4) Osteophyte Current Visit: Yes Status: Acute Code(s): M25.70 - OSTEOPHYTE, UNSPECIFIED JOINT SNOMED Code(s): 423257124729060 (5) Impaired mobility and ADLs Current Visit: Yes Status: Acute Code(s): Z74.09 - OTHER REDUCED MOBILITY; Z78.9 - OTHER SPECIFIED HEALTH STATUS SNOMED Code(s): 615987423 (6) Hypertension Current Visit: Yes Status: Acute Code(s): I10 - ESSENTIAL (PRIMARY) HYPERTENSION SNOMED Code(s): 74620886 (7) Macrocytosis Current Visit: Yes Status: Acute Code(s): D75.89 - OTHER SPECIFIED DISEASES OF BLOOD AND BLOOD-FORMING ORGANS SNOMED Code(s): 869314413 (8) Hypothyroidism Current Visit: Yes Status: Acute Code(s): E03.9 - HYPOTHYROIDISM, UNSPECIFIED SNOMED Code(s): 40144617 (9) Depression Current Visit: Yes Status: Acute Code(s): F32.A - DEPRESSION, UNSPECIFIED SNOMED Code(s): 28286581 (10) Anxiety Current Visit: Yes Status: Acute Code(s): F41.9 - ANXIETY DISORDER, UNSPECIFIED SNOMED Code(s): 72780098 Plan: Plan: 1. Patient has been seen by myself and Dr. Barron Mitchell and we have both reviewed her imaging. Patient has been experiencing significant thoracolumbar pain and lower back pain status post fall on 12/13/2021. She was seen at [facility] for further evaluation without significant findings and discharge. Her symptoms were not having any improvement and she presented to [facility] for further evaluation. Since her admission to the hospital she states her symptoms have not had any significant improvement since admittance on 12/14/2021. She continues of significant pain in her thoracolumbar spine and lower lumbar spine with any increased activities of her spine, coughing, and sneezing. She is not experiencing any lower extremity weakness or radiculopathy bilaterally. She is neurovascularly intact at the bilateral lower extremities. She is able to perform active good range of motion bilateral lower extremities have difficulty. She is eating and voiding without difficulty. Reviewing of CT imaging of the thoracic and lumbar spine does show significant degenerative changes along with some bony change at T12. She is also requiring multiple medications for pain control including hydrocodone, morphine, lidocaine patch, and Tylenol 650 mg. Given her recent fall, lack of improvement over several days, lack of good pain control with multiple pain medications, and both degenerative and bony change found on CT imaging, we will plan to obtain an MRI of the lumbar spine for further evaluation. We did request for this lumbar MRI to include T12. We also discussed patient could benefit from bracing. A prescription is written, signed, and provided to case management to obtain an LSO brace. Patient should wear this brace for comfort support during ambulation and increase activities. She should have this brace intact while working with physical therapy. Brace does not have to be worn while lying in bed or while bathing. She should avoid bending, twisting, and lifting activities. Currently, MRI of the lumbar spine with T12 included is scheduled for tomorrow, 12/18/2021. We did discuss we'll plan to follow up with her for further evaluation and to discuss her MRI results and discuss further treatment options at that time. Patient states if she was a candidate she would consider injections at her spine. We will also plan for her brace to be delivered and fitted appropriately today. Time with Patient: Greater than 30 (Including obtaining history, physical examination, reviewing of imaging, and dictation.)
--- NOTE | 2021-12-17 13:43 | P.PN ---
Subjective Patient was examined at bedside today not complaining of any new symptomatology. The pain in the back is still 610 without any significant improvement despite being on multiple pain medications. Patient has been evaluated by orthopedic service will continue to follow the recommendations. Case discussed with RN present at bedside as well. Objective - Vital Signs Vital signs: Vital Signs Temp 97.4 F L 12/17/21 07:55 Pulse 70 12/17/21 07:55 Resp 18 12/17/21 07:55 BP 195/103 12/17/21 07:55 Pulse Ox 94 L 12/17/21 07:55 Intake & Output 12/16/21 12/17/21 12/17/21 18:59 06:59 18:59 Intake Total 177 Output Total 750 100 Balance -573 -100 Intake: Intake, IV Titration 0 Amount Sodium Chloride 0.9% 1, 0 000 ml @ 20 mls/hr IV . Q24H [facility] Rx#:[id number] Oral 177 Output: Urine 750 100 - Exam General: [non toxic], [no distress], [appears at stated age] Derm: [warm], [dry] Head: [atraumatic], [normocephalic], [symmetric] Eyes: [EOMI], [no lid lag], [anicteric sclera] Mouth: [no lip lesion], [mucus membranes moist] Cardiovascular: [S1S2 reg], [no murmur] Lungs: [CTA bilateral], [no rhonchi, no rales] , [no accessory muscle use] Ext: [no gross muscle atrophy], [no edema], [no contractures], [Tenderness to palpation over the midline L3-L4 with bilateral paraspinal tenderness] Neuro: [no focal neuro deficits] Psych: [Alert], [oriented], [appropriate affect] Muscle skeletal intractable lower back pain. - Labs CBC & Chem 7: 12/15/21 06:28 12/15/21 06:28 Labs: Abnormal Lab Results - Last 24 Hours (Table) 12/15/21 Range/Units 06:28 Folate 4.20 L (4.40-31.00) ng/mL Assessment and Plan Assessment: Assessment: #Acute lower back pain likely musculoskeletal sprain #Mechanical fall #Debility with inability to take care of ADLs and IADLs #Scoliosis #Macrocytosis Chronic conditions: Hypothyroidism, depression and anxiety Plan: -Admit to medicine for close monitoring -Aspiration/fall precaution -Pain control when necessary -Orthopedics service recommendations reviewed recommending brace -PT/OT -Pending MRI to be completed tomorrow -DVT prophylaxis heparin 3 times a day
[2021-12-17] MEDS ORDERED: diazePAM 5 MG TAB PO STA (13:52)
[2021-12-17] MEDS: SODIUM CHLORIDE 0.9% 1,000 ML IV SCH (14:09)
[2021-12-17] MEDS: LEVOTHYROXINE 75 MCG TAB PO SCH (21:07)
[2021-12-17] MEDS: buPROPion XL 300 MG TAB.ER.24H PO SCH (21:07)
[2021-12-17] MEDS: PARoxetine 20 MG TAB PO SCH (21:07)
[2021-12-18] MEDS: hydrALAZINE HCL 10 MG TAB PO PRN (02:25)
[2021-12-18] MEDS: MORPHINE SULFATE 2 MG/ML SYRINGE IV PRN ×3 (02:26→21:07)
[2021-12-18] MEDS: LIDOCAINE 5% PATCH TOPICAL SCH (08:45)
[2021-12-18] MEDS: HEPARIN SODIUM,PORCINE/PF 5,000 UNIT/0.5 ML SYRINGE SQ SCH ×3 (08:45→21:07)
[2021-12-18] MEDS: HYDROcodone/APAP 5-325MG 1 EACH TAB PO PRN ×2 (08:46→16:28)
[2021-12-18] MEDS: DICLOFENAC SODIUM GEL 100 GM TUBE TOPICAL SCH ×4 (08:47→21:14)
--- NOTE | 2021-12-18 08:55 | P.PN ---
Progress Note - Text Progress Note Date: 12/18/21 Orthopedic spine: History of present illness: Patient is a very pleasant 71-year-old female who is seen and examined at bedside for follow-up evaluation of her thoracic and lumbar spine. She has not had any improvement of her symptoms since being seen and examined yesterday. She states she sustained a fall on 12/13/2021 when she lost her balance outside her house falling on concrete. Since that time she has had increased thoracolumbar pain and lower lumbar pain. She was taken to [facility] for further evaluation. Imaging was taken at the time without significant findings. She was discharged home. Her pain continued to be significant and she presented to [facility] for further evaluation. CT imaging of the thoracic and lumbar spine was taken showing significant degenerative changes without obvious fracture. Since her admittance to hospital on 12/14/2021 she states her thoracolumbar pain lumbar pain has not improved. She is currently receiving multiple medications for pain control including hydrocodone 5 mg/325 mg, morphine, lidocaine patch, and acetaminophen 650 mg. Patient states her pain stays specific to her thoracolumbar and lumbar spine. Her pain is exacerbated with coughing, sneezing, and bending activities. She is not experiencing any lower extremity weakness or radiculopathy bilaterally. She has good range of motion of her bilateral lower extremities. She is eating and voiding without difficulty. He does not feel her pain is well enough controlled that she could be discharged home. She's currently being seen and examined by medicine who is managing her medications. Patient is having difficulty with hypertension. Nursing states patient has been started on hydralazine. Patient's other medical conditions include macrocytosis, hypothyroidism, depression, and anxiety. Since being seen and examined yesterday and LSO brace has been delivered and fitted appropriately. She has kept this brace intact while working with physical therapy and during ambulation. She has not been wearing this brace while at rest. MRI imaging of the lumbar spine to include T12 was ordered yesterday. This is scheduled to be performed today at 9:15 AM. Physical exam: Patient is awake, alert, and oriented 3 Vital signs stable Good chest excursion with deep inspiration and expiration Abdomen soft nontender Patient is currently lying comfortably in bed Increased kyphosis at the thoracic spine Pain with palpation along the midline at the thoracolumbar junction and at the lower lumbar spine Dorsiflexion, plantarflexion, and extensor hallucis longus positive sustained bilaterally Lower extremity strength 5/5 bilaterally Patient is able to perform good active range of motion of bilateral lower extremities independently Straight leg test negative bilateral lower extremities No signs or symptoms of DVT; no calf pain No pain with internal and external rotation of the hips bilaterally Neurovascularly intact Pertinent studies: CT of the thoracic and lumbar spine taken on 12/14/2021: T12 evidence of some bony change within the vertebral body; T9-12 calcification of the intervertebral disc space and possible autofusion at these levels with large anterior osteophytic spurring; L1-2 degenerative disc disease; L2-3 significant degenerative disc disease, retrolisthesis, and vacuum disc phenomenon; L3-4 retrolisthesis Assessment: Acute traumatic thoracolumbar pain and lower lumbar pain status post fall T12 bony change within the vertebral body T9-12 calcification of the intervertebral disc space and possible autofusion at these levels with large anterior osteophytic spurring L1-2 degenerative disc disease L2-3 significant degenerative disc disease, retrolisthesis, and vacuum disc phenomenon L3-4 retrolisthesis Difficulty with regular activities of daily living due to thoracolumbar and lower lumbar pain Hypertension Macrocytosis Hypothyroidism Depression Anxiety Plan: 1. We will continue with our plan as set forth yesterday. Patient has been seen by myself and Dr. Barron Mitchell and we have both reviewed her imaging. Patient has been experiencing significant thoracolumbar pain and lower back pain status post fall on 12/13/2021. She was seen at [facility] for further evaluation without significant findings and discharge. Her symptoms were not having any improvement and she presented to [facility] for further evaluation. Since her admission to the hospital she states her symptoms have not had any significant improvement since admittance on 12/14/2021. She continues of significant pain in her thoracolumbar spine and lower lumbar spine with any increased activities of her spine, coughing, and sneezing. She is not experiencing any lower extremity weakness or radiculopathy bilaterally. She is neurovascularly intact at the bilateral lower extremities. She is able to perform active good range of motion bilateral lower extremities have difficulty. She is eating and voiding without difficulty. Reviewing of CT imaging of the thoracic and lumbar spine does show significant degenerative changes along with some bony change at T12. She is also requiring multiple medications for pain control including hydrocodone, morphine, lidocaine patch, and Tylenol 650 mg. Given her recent fall, lack of improvement over several days, lack of good pain control with multiple pain medications, and both degenerative and bony change found on CT imaging, we will plan to obtain an MRI of the lumbar spine for further evaluation. We did request for this lumbar MRI to include T12. The MRI is scheduled to be performed this morning at 9:15 AM. We will plan to review her MRI imaging once it is complete and available for review and will discuss further treatment options at that time. Patient states if she was a candidate she would consider injections at her spine. 2. We also discussed patient could benefit from bracing. A prescription is written, signed, and provided to case management to obtain an LSO brace. This brace was delivered and fitted appropriately yesterday. She should continue to wear this brace for comfort support during ambulation and increase activities. She has been wearing this brace while working with formal physical therapy and should continue to do so. Brace does not have to be worn while lying in bed or while bathing. She should avoid bending, twisting, and lifting activities.
--- NOTE | 2021-12-18 11:36 | MR ---
EXAMINATION TYPE: MR lumbar spine wo con DATE OF EXAM: 12/18/2021 COMPARISON: CT scan 12/14/2021 HISTORY: thoraco-lumbar pain s/p fall TECHNIQUE: T1 and T2 axial and sagittal images of the lumbar spine are submitted. FINDINGS: There is no abnormal signal seen within the visualized spinal cord or paraspinal soft tissu es. There is severe degenerative disc disease involving the lower thoracic spine with a transverse fr acture through the body of T12. This extends to the level of the posterior elements. Pedicle involvem ent is not seen with certainty. Diffuse heterogeneous marrow signal is nonspecific. Simple appearing renal cysts are noted. Liver is prominent in size. At L1-2 there is broad-based disc protrusion with moderate effacement of thecal sac. Ligamentum flavu m hypertrophy and facet arthropathy contribute to canal stenosis and mild bilateral foraminal encroac hment. At L2-3 there is severe degenerative disc disease with vacuum disc and 6 mm retrolisthesis of L5 to r elative to L3. Broad-based disc protrusion with facet arthropathy and ligamentum flavum contribute to canal stenosis and bilateral foraminal encroachment. At L3-4 there is degenerative disc disease with hypertrophic change of the facets and ligamentum flav um. There is circumferential disc bulging. Moderate to severe right foraminal encroachment and modera te left foraminal encroachment. 2 to 3 mm retrolisthesis of C3 relative to C4. At L4-5 there is degenerative disc disease. There is hypertrophic change of the facets with ligamentu m flavum hypertrophy. No Canal stenosis. Neural foramina remain patent. At L5-S1 there is degenerative disc disease with no disc herniation or canal stenosis. No foraminal e ncroachment. Advanced facet arthropathy. There appears to be dural ectasia with scalloping of the posterior margins of the vertebral segments of L4, L5, S1 and S2 levels. IMPRESSION: 1. Transverse fracture through the body of T12. Report called to the patient's nurse 11:23 AM 12/19/19 22. 2. Multilevel severe degenerative disc disease with retrolisthesis and multilevel disc protrusions. M ultilevel foraminal encroachment and canal stenosis. Diffuse marrow signal alteration can be associat ed with redistribution and/or osteoporosis. Correlate clinically to exclude lymphoproliferative disor anshu or underlying malignancy. No contrast exam available for comparison. 3. Dural ectasia with scalloping of the posterior margins of the lower lumbar vertebral segments and sacral levels.
[2021-12-18 13:19] LABS: Basophils # (A) 0.1 k/uL (0-0.2); Basophils % (A) 1 %; Eosinophils # (A) 0.2 k/uL (0-0.7); Eosinophils % (A) 2 %; HCT 44.9 % (34.0-46.0); HGB 14.2 gm/dL (11.4-16.0); Lymphocytes # (A) 0.6 k/uL (1.0-4.8); Lymphocytes % (A) 9 %; MCH 31.2 pg (25.0-35.0); MCHC 31.7 g/dL (31.0-37.0); MCV 98.3 fL (80.0-100.0); Monocytes # (A) 0.8 k/uL (0-1.0); Monocytes % (A) 12 %; Neutrophils # (A) 5.1 k/uL (1.3-7.7); Neutrophils % (A) 74 %; Platelet Count 200 k/uL (150-450); RBC 4.56 m/uL (3.80-5.40); RDW 12.3 % (11.5-15.5); WBC 6.8 k/uL (3.8-10.6)
[2021-12-18] MEDS: SODIUM CHLORIDE 0.9% 1,000 ML IV SCH (15:37)
--- NOTE | 2021-12-18 17:53 | P.PN ---
Subjective She was examined at bedside today not complaining of any worsening symptomatology. Family present at bedside case discussed regarding possible discharge home versus subacute rehab. At this time the patient is agreeable to code rehab. She does have a brace present at bedside and has been evaluated by orthopedic service as well MRI results were communicated to her by them. Objective - Vital Signs Vital signs: Vital Signs Temp 98.3 F 12/18/21 14:00 Pulse 85 12/18/21 14:00 Resp 16 12/18/21 14:00 BP 153/86 12/18/21 14:00 Pulse Ox 94 L 12/18/21 14:00 Intake & Output 12/17/21 12/18/21 12/18/21 18:59 06:59 18:59 Intake Total 118 118 Output Total 350 650 Balance -232 -650 118 Intake: Oral 118 118 Output: Urine 350 650 - Exam General: [non toxic], [no distress], [appears at stated age] Derm: [warm], [dry] Head: [atraumatic], [normocephalic], [symmetric] Eyes: [EOMI], [no lid lag], [anicteric sclera] Mouth: [no lip lesion], [mucus membranes moist] Cardiovascular: [S1S2 reg], [no murmur] Lungs: [CTA bilateral], [no rhonchi, no rales] , [no accessory muscle use] Ext: [no gross muscle atrophy], [no edema], [no contractures], [Tenderness to palpation over the midline L3-L4 with bilateral paraspinal tenderness] Neuro: [no focal neuro deficits] Psych: [Alert], [oriented], [appropriate affect] Muscle skeletal intractable lower back pain. - Labs CBC & Chem 7: 12/18/21 12:56 12/15/21 06:28 Labs: Abnormal Lab Results - Last 24 Hours (Table) 12/18/21 Range/Units 12:56 Lymphocytes # 0.6 L (1.0-4.8) k/uL Assessment and Plan Assessment: Assessment: #Acute lower back pain likely musculoskeletal sprain #Mechanical fall #Debility with inability to take care of ADLs and IADLs #Scoliosis #Macrocytosis Chronic conditions: Hypothyroidism, depression and anxiety Plan: -Admit to medicine for close monitoring -Aspiration/fall precaution -Pain control when necessary -Orthopedics service recommendations reviewed recommending brace -PT/OT -MRI completed final recommendations from orthopedic service. -Pending placement to rehab. -DVT prophylaxis heparin 3 times a day
[2021-12-18 18:37] LABS: African American GFR (CKD) 70.7 (60.0-200.0); Anion Gap 10.9 mmol/L (10.00-18.00); BUN/Creat Ratio 25.38 Ratio (12.00-20.00); Blood Urea Nitrogen 23.6 mg/dL (9.0-27.0); Calcium 9.4 mg/dL (8.7-10.3); Carbon Dioxide 28.4 mmol/L (20.0-27.5); Potassium 4.9 mmol/L (3.5-5.5)
[2021-12-18] MEDS: LEVOTHYROXINE 75 MCG TAB PO SCH (21:07)
[2021-12-18] MEDS: PARoxetine 20 MG TAB PO SCH (21:07)
[2021-12-18] MEDS: buPROPion XL 300 MG TAB.ER.24H PO SCH (21:07)
[2021-12-19] MEDS: hydrALAZINE HCL 10 MG TAB PO PRN (04:31)
[2021-12-19] MEDS: MORPHINE SULFATE 2 MG/ML SYRINGE IV PRN ×3 (08:30→21:23)
[2021-12-19] MEDS: HEPARIN SODIUM,PORCINE/PF 5,000 UNIT/0.5 ML SYRINGE SQ SCH ×3 (08:32→22:32)
[2021-12-19] MEDS: LIDOCAINE 5% PATCH TOPICAL SCH (08:33)
[2021-12-19] MEDS: DICLOFENAC SODIUM GEL 100 GM TUBE TOPICAL SCH ×4 (08:33→21:23)
[2021-12-19 09:09] LABS: Basophils # (A) 0.04 X 10*3/uL (0.00-0.10); Basophils % (A) 0.8 %; Eosinophils # (A) 0.22 X 10*3/uL (0.04-0.35); Eosinophils % (A) 4.1 %; HCT 41.3 % (37.2-46.3); HGB 13.7 g/dL (12.0-15.0); Immature Grans, Automated 0.6 %; Lymphocytes # (A) 0.74 X 10*3/uL (0.90-5.00); Lymphocytes % (A) 13.9 %; MCH 31.8 pg (27.0-32.0); MCHC 33.2 g/dL (32.0-37.0); MCV 95.8 fL (80.0-97.0); Mean Platelet Volume 11.6 fL (9.5-12.2); Monocytes # (A) 0.99 X 10*3/uL (0.20-1.00); Monocytes % (A) 18.6 %; NRBC Per 100 WBC 0 /100 WBCS (0.0-0.0); Platelet Count 191 X 10*3/uL (140-440); RBC 4.31 X 10*6/uL (4.10-5.20); RDW 12.4 % (11.5-14.5); WBC 5.32 X 10*3/uL (4.50-10.00)
[2021-12-19 10:13] LABS: African American GFR (CKD) 64.7 (60.0-200.0); Anion Gap 11.1 mmol/L (10.00-18.00); BUN/Creat Ratio 30.5 Ratio (12.00-20.00); Blood Urea Nitrogen 30.5 mg/dL (9.0-27.0); Carbon Dioxide 25.9 mmol/L (20.0-27.5); Non-African American GFR(CKD) 55.8 (60.0-200.0)
[2021-12-19] MEDS: HYDROcodone/APAP 5-325MG 1 EACH TAB PO PRN ×2 (10:53→18:08)
--- NOTE | 2021-12-19 13:24 | P.PN ---
Progress Note - Text Progress Note Date: 12/19/21 Orthopedic spine: History of present illness: Patient is a very pleasant 71-year-old female who is seen and examined at bedside for follow-up evaluation of her thoracic and lumbar spine. He presented had lumbar MRI imaging performed with inclusion of T12. She is previously fitted with an LSO brace. She has not been performing any increased activities. She has been able to perform some ambulation with her LSO brace intact. She does not feel her pain is worsening. She denies any lower extremity weakness or radiculopathy bilaterally. She is not having difficulty voiding. She is eating without difficulty. She is planning for discharge to a rehabilitation facility today. She does feel she is ready for discharge. She is currently receiving multiple medications for pain control including hydrocodone 5 mg/325 mg, morphine, lidocaine patch, and acetaminophen 650 mg. Patient states her pain stays specific to her thoracolumbar and lumbar spine. Her pain is exacerbated with coughing, sneezing, and bending activities. She's currently being seen and examined by medicine who is managing her medications. Patient does continue to have some difficulty with hypertension. Nursing states patient has been started on hydralazine. Patient's other medical conditions include macrocytosis, hypothyroidism, depression, and anxiety. Patient history: She states she sustained a fall on 12/13/2021 when she lost her balance outside her house falling on concrete. Since that time she has had increased thoracolumbar pain and lower lumbar pain. She was taken to [facility] for further evaluation. Imaging was taken at the time without significant findings. She was discharged home. Her pain continued to be significant and she presented to [facility] for further evaluation. CT imaging of the thoracic and lumbar spine was taken showing significant degenerative changes without obvious fracture. MR MRI imaging taken on 12/18/2021 did show evidence of transverse fracture through the body of T12. Physical exam: Patient is awake, alert, and oriented 3 Vital signs stable Good chest excursion with deep inspiration and expiration Abdomen soft nontender Patient is currently lying comfortably in bed Increased kyphosis at the thoracic spine Pain with palpation along the midline at the thoracolumbar junction and at the lower lumbar spine Dorsiflexion, plantarflexion, and extensor hallucis longus positive sustained bilaterally Lower extremity strength 5/5 bilaterally Patient is able to perform good active range of motion of bilateral lower extremities independently Straight leg test negative bilateral lower extremities No signs or symptoms of DVT; no calf pain No pain with internal and external rotation of the hips bilaterally Neurovascularly intact Pertinent studies: CT of the thoracic and lumbar spine taken on 12/14/2021: T12 evidence of some bony change within the vertebral body; T9-12 calcification of the intervertebral disc space and possible autofusion at these levels with large anterior osteophytic spurring; L1-2 degenerative disc disease; L2-3 significant degenerative disc disease, retrolisthesis, and vacuum disc phenomenon; L3-4 retrolisthesis MRI of the lumbar spine taken on 12/18/2021: Evidence of transverse fracture through the body of T12 extending to the posterior elements; diffuse heterogeneous marrow signal is nonspecific; L1-2 broad-based disc protrusion, retrolisthesis, degenerative disc disease, ligament of flavum hypertrophy, facet arthropathy resulting in central canal narrowing and bilateral foraminal narrowing; L2-3 retrolisthesis, degenerative disc disease, disc desiccation, and facet arthropathy resulting in bilateral neural foraminal narrowing and central canal narrowing; L3-4 disc desiccation, posterior disc bulging, and significant left-sided facet arthropathy resulting in bilateral neural foraminal stenosis; L4-5 and L5-S1 degenerative disc disease and facet hypertrophy without significant stenosis Assessment: Acute traumatic thoracolumbar pain and lower lumbar pain status post fall Transverse fracture through the body of T12 Diffuse heterogeneous marrow signal is nonspecific L2-3 and L3-4 retrolisthesis Lumbar degenerative disc disease Lumbar facet arthropathy Lumbar neural foraminal stenosis T9-12 calcification of the intervertebral disc space and possible autofusion at these levels with large anterior osteophytic spurring L1-2 degenerative disc disease L2-3 significant degenerative disc disease, retrolisthesis, and vacuum disc phenomenon Difficulty with regular activities of daily living due to thoracolumbar and lower lumbar pain Hypertension Macrocytosis Hypothyroidism Depression Anxiety Plan: 1. We will continue with our plan as set forth yesterday. Patient has been seen by myself and Dr. Barron Mitchell and we have both reviewed her imaging. Patient has been experiencing significant thoracolumbar pain and lower back pain status post fall on 12/13/2021. She was seen at [facility] for further evaluation without significant findings and discharge. Her symptoms were not having any improvement and she presented to [facility] for further evaluation. Since her admission to the hospital she states her symptoms have not had any significant improvement since admittance on 12/14/2021. She continues of significant pain in her thoracolumbar spine and lower lumbar spine with any increased activities of her spine, coughing, and sne ezing. She is not experiencing any lower extremity weakness or radiculopathy bilaterally. She is neurovascularly intact at the bilateral lower extremities. She is able to perform active good range of motion bilateral lower extremities have difficulty. She is eating and voiding without difficulty. Reviewing of lumbar MRI imaging of the thoracic and lumbar spine does show significant degenerative changes along with transverse fracture through the body of T12. We discussed based on her symptoms and imaging switched fracture at T12, she would be a candidate for a T12 kyphoplasty with biopsy. Patient states currently she would like to try to work to conservative treatment options. Yesterday a prescription is written, signed, and provided to case management to obtain an LSO brace. This brace was delivered and fitted appropriately yesterday. She should continue to wear this brace while sitting upright at greater than 45, during increase activities, during ambulation. Patient should avoid bending, twisting, and lifting activities. Brace is not have to or while lying in bed or while bathing. Following fitting of this brace, patient is clear for discharge from an orthopedic spine standpoint. Following discharge, patient may follow-up with Edy Alfaro PA-C or Dr. Barron Mitchell at [facility] in approximately 1-2 weeks for further evaluation. We did discuss if she is failing conservative treatment options, she is a candidate for surgical intervention. We did discuss the proposed surgical intervention would be a T12 kyphoplasty with biopsy. We also discussed she has other degenerative changes at her lumbar spine. We also discussed MRI imaging shows evidence of diffuse heterogeneous marrow signal which is nonspecific which could be associated with osteoporosis and/or redistribution. This was discussed with nursing as well. Patient's primary care provider should be made aware of these findings on her lumbar MRI and may proceed with further evaluation as needed. 2. Continue pain control medications as prescribed by medicine 3. Patient will continue to be seen in examed by medicine for her other medical diagnoses
--- NOTE | 2021-12-19 14:27 | P.DS ---
Providers Date of admission: 12/15/21 13:48 Attending physician: German Melendez MD Consults: 12/16/21 10:52 Consult Physician Routine Consulting Provider: Pennie Mitchell Consult Reason/Comments: Intractable back pain s/p fall Do you want consulting provider notified?: Yes Primary care physician: [facility] Course: Patient is a 71-year-old female with PMH of hypothyroidism, depression and anxiety that presents the ED for intractable back pain. Patient reports having a mechanical fall as she was attempting to walk up stairs and lost her footing yesterday. She fell backwards and hit her lower back. She denies any head trauma or loss of consciousness. She went to [facility] where workup was unrevealing. She was subsequent discharge home. Since going home yesterday, she has experienced worsening lower back pain that is been difficult for her to take care of ADLs and IADLs. This prompted her daughter to bring the patient back to the hospital. Patient currently reports lower back pain, 12 out of 10 in severity, no radiating features, throbbing in nature. Patient denies any bladder or bowel incontinence. She denies any saddle anesthesia. She denies any headache, lower extremity edema, nausea or vomiting, fever or chills, cough, chest pain, shortness of breath, palpitations, changes in urination or bowel habits. No changes in appetite or weight. She denies any dizziness, numbness/weakness/tingling of the extremities. In the ED, her vital signs were stable. CT thoracic and lumbar spine was obtained which showed no evidence of acute trauma, degenerative changes. Patient is admitted as a social admit, unable to take care of ADLs and IADLs with PT and OT consultation. Patient was evaluated by orthopedic service. Imaging was also completed including the thoracic/lumbar spine CT including lumbar spine MRI. As per orthopedic service reviewed the lumbar MRI of the thoracic and lumbar spine did show significant degenerative changes along with transverse fracture through the body of T12. They did discuss based on symptoms and imaging that she would be a candidate for T12 kyphoplasty with biopsy. Patient states currently she would like to try to her conservatively and monitor closely. Patient has been fitted for a brace as per orthopedic service. She is asked to follow up with him within 1 week of discharge. The family and patient will like to proceed with physical therapy today and arrangements to subacute rehab have been place. Patient is at bedside not complaining of any worsening symptomatology all imaging and laboratory Data the patient agreeable. Orthopedics service patient outpatient. Patient Condition at Discharge: Fair Plan - Discharge Summary Discharge Rx Participant: Yes New Discharge Prescriptions: Continue buPROPion HCL [Wellbutrin XL] 300 mg PO HS Levothyroxine Sodium [Synthroid] 75 mcg PO HS PARoxetine HCL [Paxil] 40 mg PO HS Diclofenac Sodium [Voltaren] 75 mg PO BID Discharge Medication List Levothyroxine Sodium [Synthroid] 75 mcg PO HS 03/23/19 [History] PARoxetine HCL [Paxil] 40 mg PO HS 03/23/19 [History] buPROPion HCL [Wellbutrin XL] 300 mg PO HS 03/23/19 [History] Diclofenac Sodium [Voltaren] 75 mg PO BID 12/14/21 [History] Follow up Appointment(s)/Referral(s): [facility], [NON-STAFF] - 1-2 Days Pennie Mitchell DO [Doctor of Osteopathic Medicine] - 1 Week [facility] [NON-STAFF] - As Needed (Supplier of 4 wheeled walker) Adriel Leon MD [Primary Care Provider] - 1-2 days Edy Alfaro PAC [PHYSICIAN RESEARCH/PROGRAM DIRECTOR] - 1 Week (Patient may follow-up with Edy Alfaro PA-C or Dr. Barron Mitchell at [facility] in 1-2 weeks following discharge. ) Robyn Olivas [NON-STAFF] - As Needed (Supplier of LSO brace, contact as needed) Activity/Diet/Wound Care/Special Instructions: 1. Patient should wear LSO brace for comfort and support while sitting upright at greater than 45, while working with therapy, and while ambulating; patient does not have to wear the brace while lying in bed or bathing 2. Patient must continue to wear LSO brace while working with physical therapy to increase her mobility and ambulation 3. Patient should avoid excessive bending, twisting, and lifting; no lifting greater than 10 pounds
--- NOTE | 2021-12-19 15:44 | P.CNOR ---
History of Present Illness - [facility] Consult date: 12/19/21 Consult reason: fracture History of present illness: Patient is seen and again examined today again in regards to her thoracic lumbar back pain. She has been in the hospital for several days with severe debility. She says she still having significant pain in her mid back particularly with any movement and with walking. She sounds very limited ability to try to get up and move around. She has been using her TLSO brace for the past 2 days and she feels that it feels a little bit better but still has great difficulty with any sort of independent mobilization ambulation or transfers. She denies any new pa in and lower extremity. Denies any numbness tingling or weakness in her lower extremity is. She denies any nausea or vomiting. She denies any changes in bowel bladder function. Review of Systems As stated per HPI. She is also scheduled to undergo shoulder replacement at the end of January. Past Medical History Past Medical History: Cancer, Hypertension, Osteoarthritis (OA), Sleep Apnea/CPAP/BIPAP, Thyroid Disorder Additional Past Medical History / Comment(s): C-PAP MACHINE , PAST HX OF HTN, SCOLIOSIS, BACK PAIN, SQUAMOUS CELL SKIN CANCER History of Any Multi-Drug Resistant Organisms: None Reported Past Surgical History: Bladder Surgery, Hysterectomy, Joint Replacement Additional Past Surgical History / Comment(s): LEFT ELBOW FX Past Anesthesia/Blood Transfusion Reactions: No Reported Reaction, Motion Sickness Past Psychological History: Anxiety, Depression Smoking Status: Never smoker Past Alcohol Use History: Occasional Past Drug Use History: None Reported - Past Family History Brother(s) Family Medical History: Cancer Additional Family Medical History / Comment(s): PROSTATE CANCER Medications and Allergies Home Medications Medication Instructions Recorded Confirmed Type Levothyroxine Sodium [Synthroid] 75 mcg PO HS 03/23/19 12/14/21 History PARoxetine HCL [Paxil] 40 mg PO HS 03/23/19 12/14/21 History buPROPion HCL [Wellbutrin XL] 300 mg PO HS 03/23/19 12/14/21 History Diclofenac Sodium [Voltaren] 75 mg PO BID 12/14/21 12/14/21 History Allergies Allergy/AdvReac Type Severity Reaction Status Date / Time erythromycin base AdvReac Unknown Abdominal Verified 12/14/21 14:15 Pain Physical Examination Osteopathic Statement: *. No significant issues noted on an osteopathic structural exam other than those noted in the History and Physical/Consult. - L Spine: dermatomal strength & reflexes bilateral Strength: hip flexion: 5/5 (Her legs have sustained 5 and 5 strength dorsally. Plantar flexion and EHL hip flexion and extension. She has pain in her back with motion. Her pelvis is stable to rock. She has significant tenderness to palpation and her thoracic lumbar junction around the midline. There is no skin breakdown.) Strength: knee extension: 5/5 (Her paraspinals have some spasm. She is tender to percussion. She is pain at the middle of her back with any sort of mo bilization movement and getting in and out of bed or rolling. Her neck is nontender. Her upper extremity have 5 out of 5 strength.) Results - Labs Labs: Abnormal Lab Results - Last 24 Hours (Table) 12/18/21 12/19/21 12/19/21 Range/Units 12:56 06:48 06:48 Lymphocytes # 0.74 L (0.90-5.00) X 10*3/uL Carbon Dioxide 28.4 H (20.0-27.5) mmol/L BUN 30.5 H (9.0-27.0) mg/dL Est GFR (CKD-EPI)NonAf 55.8 L (60.0-200.0) BUN/Creatinine Ratio 25.38 H 30.50 H (12.00-20.00) Ratio H & H 12/15/21 12/18/21 12/19/21 Range/Units 06:28 12:56 06:48 Hgb 12.2 14.2 13.7 (12.0-15.0) g/dL Hct 38.7 44.9 41.3 (37.2-46.3) % Result Diagrams: 12/19/21 06:48 12/19/21 06:48 - Diagnostic results Cervical MRI with contrast: report reviewed, image reviewed (The MRI of her lumbar spine including her T12 area shows evidence of acute bony change and fracture with compression at T12. There is no significant bony retropulsion. There is no significant stenosis. She has significant degenerative changes throughout her lumbar spine.) CT Scan - lumbar: report reviewed, image reviewed Assessment and Plan Assessment: Osteoporotic, acute T12 and pressure fracture with significant debility failing conservative management No acute neurologic change or deficit Inability to ambulate due to thoracic and lumbar back pain Plan: Osteoporotic, acute T12 and pressure fracture with significant debility failing conservative management No acute neurologic change or deficit Inability to ambulate due to thoracic and lumbar back pain A long discussion with patient today at bedside. She has been here in the hospital for almost a week and is really making little to no improvement. She has been treated with medications physical therapy and bracing but is not making significant progress. She has been in works to go to rehab as she is not able to do it in bed on her own or mobilize independently. We had discussed the possibility of kyphoplasty with her in her acute compression fracture at T12. Initially she was very hesitant to pursue this. However with her lack of improvement and her continued pain she's been revisiting this idea and she is interested in pursuing T12 vertebral biopsy with kyphoplasty. The patient has failed conservative treatment and is now making any significant progress. She continues to have severe pain at the midline of her back and inability to actively due to the pain at her back despite bracing and medication. She is not having neurologic deficit and her pain correlates well with the new fracture at T12. She is interested in surgical intervention for kyphoplasty T12. I discussed the risks, patient alternatives and benefits at length with her discussed the risks of bleeding risk of infection risk and need for further surgery risk of decreased loss of motion loss of function malunion nonunion nerve damage heart attack lung issues and the possibly that surgery may not alleviate her symptoms was explained. Patient elects to proceed with surgical intervention and will sign informed consent. We'll plan for surgery tomorrow in the operating room and she'll be nothing by mouth after midnight. I talked to the primary service and they are in agreement as well. Time with Patient: Greater than 30
[2021-12-19] MEDS: SODIUM CHLORIDE 0.9% 1,000 ML IV SCH (17:30)
[2021-12-19 17:36] LABS: INR 0.9 (<1.2); Partial Thromboplastin Time 35.1 sec (22.0-30.0)
[2021-12-19] MEDS: LEVOTHYROXINE 75 MCG TAB PO SCH (21:22)
[2021-12-19] MEDS: PARoxetine 20 MG TAB PO SCH (21:22)
[2021-12-19] MEDS: buPROPion XL 300 MG TAB.ER.24H PO SCH (21:22)
[2021-12-20] MEDS: HYDROcodone/APAP 5-325MG 1 EACH TAB PO PRN ×3 (07:57→22:02)
[2021-12-20] MEDS: HEPARIN SODIUM,PORCINE/PF 5,000 UNIT/0.5 ML SYRINGE SQ SCH ×2 (07:58→17:09)
[2021-12-20] MEDS: LIDOCAINE 5% PATCH TOPICAL SCH (07:59)
[2021-12-20] MEDS: DICLOFENAC SODIUM GEL 100 GM TUBE TOPICAL SCH ×4 (07:59→20:53)
[2021-12-20] MEDS ORDERED: LACTATED RINGERS 1,000 ML IV ONE (09:31)
[2021-12-20] MEDS ORDERED: ONDANSETRON 4 MG/2 ML VIAL ONE (09:33)
[2021-12-20] MEDS ORDERED: hydrALAZINE HCL 20 MG/ML 1 ML VIAL IVP ONE (09:37)
[2021-12-20] MEDS ORDERED: DEXAMETHASONE SOD PHOSPHATE 4 MG/ML 1 ML VIAL IVP ONE (09:41)
[2021-12-20] MEDS ORDERED: ONDANSETRON 4 MG/2 ML VIAL IVP ONE (09:41)
[2021-12-20] MEDS ORDERED: SUCCINYLCHOLINE CHLORIDE 100 MG/5 ML SYR IV ONE (10:19)
[2021-12-20] MEDS ORDERED: fentaNYL (PF) 50 MCG/ML 2 ML AMP ONE (10:19)
[2021-12-20] MEDS ORDERED: LIDOCAINE 2% INJ 20 MG/ML (2 ML VIAL) ONE (10:19)
[2021-12-20] MEDS ORDERED: PROPOFOL 10 MG/ML 20 ML VIAL IV ONE (10:19)
[2021-12-20] MEDS ORDERED: BUPIVACAIN-EPI 0.5%-1:200,000 30 ML VIAL SQ ONE (10:24)
[2021-12-20] MEDS ORDERED: ceFAZolin 1,000 MG VIAL IVPB ONE (10:24)
[2021-12-20] MEDS ORDERED: IOPAMIDOL M200 10 ML VIAL MISCELLANE ONE (10:24)
[2021-12-20] MEDS ORDERED: CYCLOBENZAPRINE 10 MG TAB PO PRN (11:19)
[2021-12-20] MEDS ORDERED: BENZOCAINE/MENTHOL LOZENG 1 EACH LOZENGE MUCOUS MEM PRN (11:19)
[2021-12-20] MEDS ORDERED: HYDROmorphone 0.5 MG/0.5 ML SYRINGE IVP PRN (11:19)
[2021-12-20] MEDS ORDERED: ONDANSETRON 4 MG/2 ML VIAL IVP PRN (11:19)
[2021-12-20] MEDS ORDERED: KETOROLAC 15 MG/ML 1 ML VIAL IVP PRN (11:19)
--- NOTE | 2021-12-20 11:29 | P.OP ---
Date of Procedure: 12/20/21 Preoperative Diagnosis: T12 acute vertebral compression fracture, traumatic due to fall Osteoporosis Thoracic back pain Debility with inability to ambulate due to compression fracture and back pain Postoperative Diagnosis: Same Anesthesia: GETA Pathology: other (T12 vertebral body biopsy sent to pathology) Condition: stable Disposition: PACU Description of Procedure: BRIEF OPERATIVE NOTE Preoperative Diagnosis: T12 acute vertebral compression fracture, traumatic due to fall Osteoporosis Thoracic back pain Debility with inability to ambulate due to compression fracture and back pain Postoperative Diagnosis: Same Procedure: Kyphoplasty of T12 Vertebral body biopsy of T12 Use of biplanar fluoroscopic guidance Surgeon: Dr. Mitchell Stacker Driver: None Anesthesia: General anesthesia per Dr. Rowland Estimated blood loss: Less than 10 mL Specimen: Vertebral body biopsy of T12 sent to pathology in formalin Complications: None apparent Components implanted: Bone cement approximately 8 mL Disposition: To recovery room in good stable condition. OPERATIVE INDICATIONS The patient has been having issues in their back ever since sustaining an injury. She is having severe debility and we are counseled in this regard the hospital. She has had a great deal of difficulty with any sort of mobilization and ambulation. She still unable to get up out of bed on her own and unable to even transfer on her own. He is of the pain in her mid back. She localizes pain at her thoracic lumbar junction. We tried treating her with bracing however this didn't very little to give her improved mobility. It did help with some of her pain but she was still unable to mobilize. She is found have bony deformity at T12 on her computed tomography scan which we read out and this added pursue MRI which confirmed our suspicion of fracture at T12. The patient has been through conservative treatment. They attempted conservative care with bracing however they're not having any benefit despite brace use. They continue to have significant pain and debility due to their fracture. We discussed various treatment options including surgery, and the patient wishes to proceed with surgery We discussed the risk, patient's alternatives and benefits of surgery including but not limited to, risk of bleeding risk of infection, risk of need for further surgery, risk of decreased, loss of motion, loss of function, cement extravasation, nerve damage, paralysis, heart attack, blindness and . OPERATIVE SUMMARY After discussing all the risks, patient alternatives and benefits at length, the patient elected to proceed with surgical intervention, signed informed consent, and presented for their procedure. The patient was seen and examined in the preoperative holding area and the surgical site was marked. The patient was given antibiotics and brought to the operating room. The patient was sedated and intubated by anesthesia in standard fashion. The patient was positioned on to the operating room table in a prone position on the appropriate well-padded and well molded bilateral chest rolls. We were careful to pad any bony prominences and pressure points. We were careful to maintain the patient's cervical spine and good neutral alignment and position throughout. We used 2 C-arm machines to establish biplanar fluoroscopic guidance in AP and lateral positions. We were able to localize the fractures appropriately at T12 by counting up from the sacrum and identifying bony features consistent with the MRI and computed tomography scan. The patient was prepped and draped in a normal standard fashion. An appropriate timeout and keystone protocol performed. We were able to proceed with the surgery. The local wound area was infiltrated with local anesthetic. An incision was made over the lateral aspect of the pedicle over the appropriate levels on the right with a small 2 mm stab incision. Intraoperative fluoroscopy was taken which showed a marker at the appropriate level of T12. With the appropriate level positively confirmed, I was able to position a sharp trocar over the lateral aspect of the pedicle. As able to advance the trocar into the pedicle and into the posterior aspect of vertebral body being careful to avoid penetration cephalad caudad or medially. The trocar was placed appropriately into the posterior aspect of vertebral body at the appropriate levels. This was confirmed with C-arm guidance. With the trocar intact I was then able to take a bone biopsy with a biopsy punch or a bony drill. The biopsy specimen was passed off to be sent to pathology in formalin. I was then able to place the kyphoplasty balloon within the vertebral body. The position was checked on C-arm. I was able to inflate the balloon under low pressure and visualization with C-arm. The balloon was well enclosed within the vertebral body. The cement was prepared. With the cement at appropriate working condition the balloons were deflated and removed. I was able to place bony cement with trocar with the cement delivery device under low pressure. It had good fill within the vertebral body. I was able to inject approximately 8 mL of bony cement into the vertebral body There is no evidence of any extravasation of the cement posteriorly toward the canal. The cement was well contained at the appropriate levels. The cement was allowed to cure appropriately. The trochars removed and final images were taken on C-arm. This showed the cement at the appropriate levels of T12. We were able to proceed with closure. The wound was cleaned and dried and dressed with the appropriate dressing. The drapes were broken down. The patient was gently rolled back onto their hospital bed being careful to maintain their cervical spine and good neutral alignment and position. They were woken up by anesthesia, extubated, and brought to the recovery room in good stable condition. The patient will be admitted to the hospital for observation and for appropriate postoperative care, medical management and monitoring. We will continue to follow them closely about the postoperative course.
--- NOTE | 2021-12-20 11:35 | FL ---
EXAMINATION TYPE: FL guidance operating room DATE OF EXAM: 12/20/2021 HISTORY: Fluoroscopy time 1 minute and 18 seconds of fluoroscopy provided. IMPRESSION: 1. Fluoroscopy time.
--- NOTE | 2021-12-20 11:37 | P.PN ---
Subjective Patient was examined at bedside today anticipating a kyphoplasty today. Still complains of intractable back pain currently rating it in and out of 10. Denies any fever, chills, nausea or vomiting at bedside. Objective - Vital Signs Vital signs: Vital Signs Temp 97 F L 12/20/21 11:21 Pulse 96 12/20/21 11:31 Resp 16 12/20/21 11:31 BP 174/73 12/20/21 11:31 Pulse Ox 100 12/20/21 11:31 Intake & Output 12/19/21 12/20/21 12/20/21 18:59 06:59 18:59 Intake Total 120 700 Output Total 330 Balance 120 370 Weight 72.575 kg Intake: IV 700 Oral 120 Output: Urine 325 Estimated Blood Loss 5 Other: Voiding Method External Catheter External Catheter External Catheter # Voids 1 1 - Exam General: [non toxic], [no distress], [appears at stated age] Derm: [warm], [dry] Head: [atraumatic], [normocephalic], [symmetric] Eyes: [EOMI], [no lid lag], [anicteric sclera] Mouth: [no lip lesion], [mucus membranes moist] Cardiovascular: [S1S2 reg], [no murmur] Lungs: [CTA bilateral], [no rhonchi, no rales] , [no accessory muscle use] Ext: [no gross muscle atrophy], [no edema], [no contractures], [Tenderness to palpation over the midline L3-L4 with bilateral paraspinal tenderness] Neuro: [no focal neuro deficits] Psych: [Alert], [oriented], [appropriate affect] Muscle skeletal intractable lower back pain. - Labs CBC & Chem 7: 12/19/21 06:48 12/19/21 06:48 Labs: Abnormal Lab Results - Last 24 Hours (Table) 12/19/21 Range/Units 17:07 APTT 35.1 H (22.0-30.0) sec Assessment and Plan Assessment: Assessment: #Acute lower back pain likely musculoskeletal sprain #Mechanical fall #Debility with inability to take care of ADLs and IADLs #Scoliosis #Macrocytosis Chronic conditions: Hypothyroidism, depression and anxiety Plan: -Admit to medicine for close monitoring -Aspiration/fall precaution -Anticipate kyphoplasty today -Pain control when necessary -Orthopedics service recommendations reviewed recommending brace -PT/OT -MRI completed and reviewed. -DVT prophylaxis heparin 3 times a day -NPO for now.
[2021-12-20] MEDS: SODIUM CHLORIDE 0.9% 1,000 ML IV SCH (13:20)
--- NOTE | 2021-12-20 15:15 | XR ---
EXAMINATION TYPE: XR thoraco lumbar junction DATE OF EXAM: 12/20/2021 COMPARISON: NONE HISTORY: 71-year-old female T12 kyphoplasty TECHNIQUE: Intraoperative fluoroscopy FINDINGS: 6 images are provided during intraoperative fluoroscopy demonstrating T12 kyphoplasty. IMPRESSION: Intraoperative fluoroscopy during T12 kyphoplasty.
[2021-12-20] MEDS: buPROPion XL 300 MG TAB.ER.24H PO SCH (20:53)
[2021-12-20] MEDS: LEVOTHYROXINE 75 MCG TAB PO SCH (20:53)
[2021-12-20] MEDS: PARoxetine 20 MG TAB PO SCH (20:53)
[2021-12-21] MEDS: HEPARIN SODIUM,PORCINE/PF 5,000 UNIT/0.5 ML SYRINGE SQ SCH ×2 (01:52→08:24)
[2021-12-21 03:09] VITALS: RESP 18
[2021-12-21] MEDS: HYDROcodone/APAP 5-325MG 1 EACH TAB PO PRN ×3 (03:27→13:24)
[2021-12-21] MEDS: SODIUM CHLORIDE 0.9% 1,000 ML IV SCH (03:28)
[2021-12-21] MEDS: DICLOFENAC SODIUM GEL 100 GM TUBE TOPICAL SCH ×2 (08:25→13:25)
[2021-12-21] MEDS: LIDOCAINE 5% PATCH TOPICAL SCH (08:25)
--- NOTE | 2021-12-21 08:48 | P.PN ---
Progress Note - Text Progress Note Date: 12/21/21 Orthopedic spine: History of present illness: Patient is a very pleasant 71-year-old female who is seen and examined at bedside for follow-up evaluation of her thoracic and lumbar spine. Yesterday she underwent a T12 kyphoplasty with biopsy. Since that time she feels her thoracolumbar pain has improved. She is currently sitting at the bedside eating breakfast. She is very happy with her progress following surgical intervention. She continues to deny any lower extremity weakness or radiculopathy. She had considered the possibility of discharge home but states she does live alone and has a dog. She feels she would be better to discharge a rehabilitation facility prior to returning home. Patient states they're planning to have her discharged today to [facility]. She is not having difficulty voiding. She is eating without difficulty. She does have some difficulty with constipation chronically. She is currently receiving Senokot to help facilitate a bowel movement. She is not experiencing any abdominal pain. She is passing gas. She does feel she is ready for discharge. She is currently receiving multiple medications for pain control including hydrocodone 5 mg/325 mg, morphine, lidocaine patch, and acetaminophen 650 mg. We will plan to have these medications managed by medicine at the time of her discharge. She has had some improvement of her hypertension. Patient's other medical conditions include macrocytosis, hypothyroidism, depression, and anxiety. Patient history: She states she sustained a fall on 12/13/2021 when she lost her balance outside her house falling on concrete. Since that time she has had increased thoracolumbar pain and lower lumbar pain. She was taken to [facility] for further evaluation. Imaging was taken at the time without si gnificant findings. She was discharged home. Her pain continued to be significant and she presented to [facility] for further evaluation. CT imaging of the thoracic and lumbar spine was taken showing significant degenerative changes without obvious fracture. MRI imaging taken on 12/18/2021 did show evidence of transverse fracture through the body of T12. Physical exam: Patient is awake, alert, and oriented 3 Vital signs stable Good chest excursion with deep inspiration and expiration Abdomen soft nontender Patient is currently sitting upright in a bedside chair Increased kyphosis at the thoracic spine Evidence of a dressing on the right at the thoracolumbar junction which is clean, dry, and intact No active drainage from the kyphoplasty surgical site No significant pain with palpation along the midline at the thoracolumbar junction and at the lower lumbar spine Dorsiflexion, plantarflexion, and extensor hallucis longus positive sustained b ilaterally Lower extremity strength 5/5 bilaterally Patient is able to perform good active range of motion of bilateral lower extremities independently No signs or symptoms of DVT; no calf pain No pain with internal and external rotation of the hips bilaterally Neurovascularly intact Pertinent studies: CT of the thoracic and lumbar spine taken on 12/14/2021: T12 evidence of some bony change within the vertebral body; T9-12 calcification of the intervertebral disc space and possible autofusion at these levels with large anterior osteophytic spurring; L1-2 degenerative disc disease; L2-3 significant degenerative disc disease, retrolisthesis, and vacuum disc phenomenon; L3-4 retrolisthesis MRI of the lumbar spine taken on 12/18/2021: Evidence of transverse fracture through the body of T12 extending to the posterior elements; diffuse heterogeneous marrow signal is nonspecific; L1-2 broad-based disc protrusion, retrolisthesis, degenerative disc disease, ligament of flavum hypertrophy, facet arthropathy resulting in central canal narrowing and bilateral foraminal narrowing; L2-3 retrolisthesis, degenerative disc disease, disc desiccation, and facet arthropathy resulting in bilateral neural foraminal narrowing and central canal narrowing; L3-4 disc desiccation, posterior disc bulging, and significant left-sided facet arthropathy resulting in bilateral neural foraminal stenosis; L4-5 and L5-S1 degenerative disc disease and facet hypertrophy without significant stenosis Assessment: Status post T12 kyphoplasty with biopsy Acute traumatic thoracolumbar pain and lower lumbar pain status post fall Acute traumatic transverse fracture through the body of T12 Diffuse heterogeneous marrow signal is nonspecific L2-3 and L3-4 retrolisthesis Lumbar degenerative disc disease Lumbar facet arthropathy Lumbar neural foraminal stenosis T9-12 calcification of the intervertebral disc space and possible autofusion at these levels with large anterior osteophytic spurring L1-2 degenerative disc disease L2-3 significant degenerative disc disease, retrolisthesis, and vacuum disc phenomenon Difficulty with regular activities of daily living due to thoracolumbar and lower lumbar pain Hypertension Macrocytosis Hypothyroidism Depression Anxiety Plan: 1. Patient is known to have sustained an acute traumatic transverse fracture through the body of T12. She underwent a T12 kyphoplasty with biopsy yesterday. Her thoracolumbar pain has been improving since that time. She is happy with her progress postoperatively. We did discuss she may increase her mobility and ambulation to her tolerance. She is planning to discharge to [facility] today. She was previously prescribed an LSO brace. This brace is not required following surgical intervention but we did discuss she could benefit with wearing this brace during increase activities and while working with physical therapy as she continues to improve. We did discuss from an orthopedic spine standpoint patient is clear for discharge. Patient should continue to avoid heavy lifting activities. Patient may shower with the Tegaderm dressing intact over the surgical site. Dressing may be removed in 3 days and patient may shower without a dressing intact at that time if the surgical site remains clear, dry, and intact. Patient may follow-up with Edy Alfaro PA-C or Dr. Barron Mitchell at [facility] in 2-3 weeks following discharge. MAPS has been reviewed today, 12/21/2021, with an Overall Overdose Risk Score of 000. An "Opiod Start Talking" Form has been signed and placed in the patient's chart. A prescription has been written for hydrocodone 5 mg/325 mg 1 every 6 hours as needed for pain, dispensed #28. She is also given a prescription for cyclobenzaprine 10 mg 1 tab 3 times a day as needed for muscle spasm, dispensed #60. These prescriptions are printed, signed, and placed in the patient's chart. She is also given a prescription for Senokot-S 1 twice a day as needed for constipation, dispensed #60. 2. Patient will continue to be seen in examed by medicine for her other medical diagnoses
[2021-12-21] MEDS ORDERED: SENNOSIDES-DOCUSATE SODIUM 1 EACH TAB PO SCH (09:00)
--- NOTE | 2021-12-21 10:02 | P.DS ---
Providers Date of admission: 12/15/21 13:48 Expected date of discharge: 12/21/21 Attending physician: German Melendez MD Consults: 12/16/21 10:52 Consult Physician Routine Consulting Provider: Pennie Mitchell Consult Reason/Comments: Intractable back pain s/p fall Do you want consulting provider notified?: Yes Primary care physician: Adriel [facility] Course: Discharge Diagnosis: T12 transverse vertebral fracture-status post kyphoplasty Mechanical fall with debility Constipation Hypothyroidism Hypertension Scoliosis Hospital Course: Patient is a 71-year-old female history of hypothyroidism, depression, hypertension, and sleep apnea who presented with intractable back pain. She had a fall and initially to a Medical Center Where Workup Was Unrevealing and She Was Discharged Home. However Her Back Pain Continued to Worsen and She Was Unable to Take Care Of Her ADLs and IADLs and She Subsequently Presented Here. She Was Seen by Orthopedic Spine Surgery. Initial CT Thoracic and Lumbar Spine Showed No Evidence of Acute Trauma. She Subsequently Underwent an MRI of the Lumbar Spine Which Showed a Transverse Fracture through the Body of T12 Area along with Multilevel Severe Degenerative Disc Changes and Multilevel Foraminal Encroachment. She Ultimately Underwent T12 Kyphoplasty with Dr. Melvin on 12/20/21. After Surgery Her Pain Was Much Improved. Patient Does Have an LSO Brace Which Can Be Worn As Needed for Pain Control However Is Not Indicated at Having to Be Worn after Surgery. She Should Avoid Heavy Lifting Activities. She Can Shower with Her Tegaderm in Place and the Dressing Can Remove Removed in 3 Days. [facility]eks. She Was Given a Prescription for [place] 5 Orthopedic Spine Surgery. She Also Struggles with Constipation on a Regular Basis and Will Continue Her MiraLAX and Add Senokot. Patient seen and examined at bedside. Pain better controlled that prior to surgery, + constipation. Up and showered today. Vital signs reviewed and stable. General: non toxic, no distress, appears at stated age Derm: warm, dry Head: atraumatic, normocephalic, symmetric Eyes: EOMI, no lid lag, anicteric sclera Mouth: no lip lesion, mucus membranes moist Cardiovascular: S1S2 reg, no murmur, positive posterior tibial pulse bilateral, Lungs: Decreased bs bilateral, no rhonchi, no rales , no accessory muscle use Abdominal: soft, nontender to palpation, no guarding, no appreciable organomegaly Ext: no gross muscle atrophy, no edema, no contractures Neuro: CN II-XI grossly intact, no focal neuro deficits Psych: Alert, oriented, appropriate affect A total of 35 minutes of time were spent preparing this complex discharge summary . Patient Condition at Discharge: Fair Plan - Discharge Summary Discharge Rx Participant: Yes New Discharge Prescriptions: New Cyclobenzaprine [Flexeril] 10 mg PO TID PRN #60 tab PRN Reason: Muscle Spasm Sennosides-Docusate Sodium [Senokot-S] 1 tab PO BID PRN #60 tablet PRN Reason: Constipation HYDROcodone/APAP 5-325MG [[place] 5] 1 each PO Q6HR PRN #28 tab PRN Reason: Pain polyethylene glycoL 3350 [Miralax] 17 gm PO DAILY #30 packet Continue buPROPion HCL [Wellbutrin XL] 300 mg PO HS Levothyroxine Sodium [Synthroid] 75 mcg PO HS PARoxetine HCL [Paxil] 40 mg PO HS Diclofenac Sodium [Voltaren] 75 mg PO BID Discharge Medication List Levothyroxine Sodium [Synthroid] 75 mcg PO HS 03/23/19 [History] PARoxetine HCL [Paxil] 40 mg PO HS 03/23/19 [History] buPROPion HCL [Wellbutrin XL] 300 mg PO HS 03/23/19 [History] Diclofenac Sodium [Voltaren] 75 mg PO BID 12/14/21 [History] Cyclobenzaprine [Flexeril] 10 mg PO TID PRN #60 tab 12/21/21 [Rx] HYDROcodone/APAP 5-325MG [[place] 5] 1 each PO Q6HR PRN #28 tab 12/21/21 [Rx] Sennosides-Docusate Sodium [Senokot-S] 1 tab PO BID PRN #60 tablet 12/21/21 [Rx] polyethylene glycoL 3350 [Miralax] 17 gm PO DAILY #30 packet 12/21/21 [Rx] Follow up Appointment(s)/Referral(s): [facility], [NON-STAFF] - 1-2 Days Pennie Mitchell DO [Doctor of Osteopathic Medicine] - 2 Weeks (Patient may follow-up with Edy Alfaro PA-C or Dr. Barron Mitchell at [facility] in 2-3 weeks following discharge. ) [facility] [NON-STAFF] - As Needed (Supplier of 4 wheeled walker) Adriel Leon MD [Primary Care Provider] - 1-2 days Edy Alfaro PAC [PHYSICIAN ENAMEL BURNER] - 2 Weeks (Patient may follow-up with Edy Alfaro PA-C or Dr. Barron Mitchell at [facility] in 2-3 weeks following discharge. ) Robyn Olivas [NON-STAFF] - As Needed (Supplier of LSO brace, contact as needed) Activity/Diet/Wound Care/Special Instructions: 1. Patient should wear LSO brace for comfort and support as needed during increase activities and while working with physical therapy 2. Patient may shower with Tegaderm dressing intact over the surgical site at the thoracolumbar spine 3. Dressing may be removed in 3 days and patient may shower without a dressing at that time if the surgical site remains clean, dry, and intact 4. Patient should avoid heavy lifting activities Discharge Disposition: TRANSFER TO SNF/ECF
[2021-12-21 15:05] VITALS: BP 150/72; PULSE 80; TEMP 98.1
== END 2021-12-21 16:25 | DRG 479 ==
LOC: EC 10:17 → 6NMEDSUR 14:53 → OBSVTOIN 12-15 13:48
PROVIDERS: ADMIT Family Medicine; ATTEND Family Medicine
PROC: 0PS43ZZ Reposition Thoracic Vertebra, Percutaneous Approach (ICD-10-PCS; principal; 2021-12-20 07:30)
PROC: 0PB43ZX Excision of Thoracic Vertebra, Percutaneous Approach, Diagnostic (ICD-10-PCS; principal; 2021-12-20 07:30)
PROC: 0PU43JZ Supplement Thoracic Vertebra with Synthetic Substitute, Percutaneous Approach (ICD-10-PCS; principal; 2021-12-20 07:30)
DX: S22.088A Other fracture of T11-T12 vertebra, initial encounter for closed fracture (principal); D75.89 Other specified diseases of blood and blood-forming organs; E03.9 Hypothyroidism, unspecified; F32.A Depression, unspecified; F41.9 Anxiety disorder, unspecified; G89.11 Acute pain due to trauma; I10 Essential (primary) hypertension; Z20.822 Contact with and (suspected) exposure to COVID-19; Z28.310 Unvaccinated for COVID-19; K59.09 Other constipation; M41.9 Scoliosis, unspecified; M43.16 Spondylolisthesis, lumbar region; M47.816 Spondylosis without myelopathy or radiculopathy, lumbar region; R53.81 Other malaise; M48.061 Spinal stenosis, lumbar region without neurogenic claudication; G47.30 Sleep apnea, unspecified; M51.36 Other intervertebral disc degeneration, lumbar region; M25.78 Osteophyte, vertebrae; M51.37 Other intervertebral disc degeneration, lumbosacral region; M81.0 Age-related osteoporosis without current pathological fracture; W10.9XXA Fall (on) (from) unspecified stairs and steps, initial encounter; Y92.009 Unspecified place in unspecified non-institutional (private) residence as the place of occurrence of the external cause; Z66 Do not resuscitate; Z79.1 Long term (current) use of non-steroidal anti-inflammatories (NSAID); Z79.890 Hormone replacement therapy; Z85.828 Personal history of other malignant neoplasm of skin; Z90.710 Acquired absence of both cervix and uterus; Z98.890 Other specified postprocedural states; Z96.60 Presence of unspecified orthopedic joint implant; Z79.899 Other long term (current) drug therapy; Z88.1 Allergy status to other antibiotic agents
CPT/HCPCS: 72080; 72128; 72131; 72148; 80048; 82607; 82746; 85025; 85610; 85730; 87635; 88307; 88311; 96360; 96372; 99285

== ENCOUNTER 2022-02-12 14:56 | Inpatient (IN) | payer MEDICARE ==
--- NOTE | 2022-02-12 15:34 | ED ---
General Adult HPI - General Chief complaint: Nausea/Vomiting/Diarrhea Stated complaint: diarrhea Time Seen by Provider: 02/12/22 15:06 Source: patient, EMS Mode of arrival: EMS Limitations: no limitations - History of Present Illness Initial comments: Dictation was produced using [employer] dictation software. please excuse any grammatical, word or spelling errors. Chief Complaint: 71-year-old female presents to the emergency department for diarrhea and weakness History of Present Illness: 71-year-old female she does have multiple co morbidities. She presents to the emergency department for evaluation of generalized weakness. She does report nonbloody diarrhea for the last several days. Patient states she feels really weak to her whole body and I unable to care for self. Patient was at home when she had a home visiting physical therapist that noticed that patient was very weak. Patient was then brought to the emergency department. Patient denies any pain complaints. She does feel thirsty. Denies any focal neurologic deficits. The ROS documented in this emergency department record has been reviewed and confirmed by me. Those systems with pertinent positive or negative responses have been documented in the HPI. All other systems are other negative and/or noncontributory. PHYSICAL EXAM: General Impression: Alert and oriented x3, not in acute distress, covered in dried feces to her lower extremities HEENT: Normocephalic atraumatic, extra-ocular movements intact, pupils equal and reactive to light bilaterally, dry mucous membranes Cardiovascular: Heart regular rate and rhythm Chest: Able to complete full sentences, no retractions, no tachypnea Abdomen: abdomen soft, non-tender, non-distended, no organomegaly Musculoskeletal: Pulses present and equal in all extremities, no peripheral edema Motor: no focal deficits noted Neurological: CN II-XII grossly intact, no focal motor or sensory deficits noted Skin: Intact with no visualized rashes Psych: Normal affect and mood ED course:- 71 year-old female presents emergency department for generalized weakness for the last 1-2 days. Signs upon arrival are within acceptable limits. His brought to my attention by a nurse patient on the hall monitor has been having several runs of what appears to be tachydysrhythmias. ekg monitor demonstrated short runs of atrial flutter with 3:1 conduction block. Laboratory evaluation obtained. CBC, coag panel, about panel is unremarkable. There does appear to be evidence of acute kidney injury likely secondary to dehydration. 4 panel viral PCR is negative for influenza, COVID-19 and RSV. Patient be admitted for grave disability and cardiology consultation for evaluation of short runs of of paroxysmal episodic atrial flutter EKG interpretation: Ventricular rate 90, sinus rhythm, DC interval 150, Q's 86, QTC 412. No DC prolongation, no QTC prolongation, no ST or T-wave changes noted. EKG compared to 12/25/2021 showing no changes. Overall, this EKG is unremarkable - Related Data Home Medications Medication Instructions Recorded Confirmed Levothyroxine Sodium [Synthroid] 75 mcg PO HS 03/23/19 02/12/22 PARoxetine HCL [Paxil] 40 mg PO HS 03/23/19 02/12/22 buPROPion HCL [Wellbutrin XL] 300 mg PO HS 03/23/19 02/12/22 HYDROcodone/APAP 5-325MG [[place] 5] 1 tab PO Q6H PRN 12/25/21 02/12/22 Magnesium Hydroxide [Milk of 7,200 mg PO Q48H PRN 12/25/21 02/12/22 Magnesia Concentrate] Na Phos,M-B/Na Phos,Di-Ba [Fleet 133 ml RECTAL DAILY PRN 12/25/21 02/12/22 Adult] bisacodyL [Dulcolax] 10 mg RECTAL Q24H PRN 12/25/21 02/12/22 polyethylene glycoL 3350 [Miralax] 17 gm PO DAILY PRN 12/25/21 02/12/22 Meclizine [Antivert] 25 mg PO TID PRN 02/12/22 02/12/22 Multivitamins, Thera [Multivitamin 1 tab PO DAILY 02/12/22 02/12/22 (formulary)] Rizatriptan Benzoate [Rizatriptan] 10 mg PO DAILY PRN 02/12/22 02/12/22 amLODIPine [Norvasc] 5 mg PO DAILY 02/12/22 02/12/22 Previous Rx's Medication Instructions Recorded Cyclobenzaprine [Flexeril] 10 mg PO TID PRN #60 tab 12/21/21 Sennosides-Docusate Sodium 1 tab PO BID PRN #60 tablet 12/21/21 [Senokot-S] Allergies Allergy/AdvReac Type Severity Reaction Status Date / Time erythromycin base AdvReac Unknown Abdominal Verified 02/12/22 17:04 Pain Review of Systems ROS Statement: Those systems with pertinent positive or pertinent negative responses have been documented in the HPI. ROS Other: All systems not noted in ROS Statement are negative. Past Medical History Past Medical History: Cancer, Hypertension, Osteoarthritis (OA), Sleep Apnea/CPAP/BIPAP, Thyroid Disorder Additional Past Medical History / Comment(s): C-PAP MACHINE , PAST HX OF HTN, S COLIOSIS, BACK PAIN, SQUAMOUS CELL SKIN CANCER History of Any Multi-Drug Resistant Organisms: None Reported Past Surgical History: Back Surgery, Bladder Surgery, Hysterectomy, Joint Replacement Additional Past Surgical History / Comment(s): LEFT ELBOW FX, t12 fracture surgery on 12/21/21 Past Anesthesia/Blood Transfusion Reactions: No Reported Reaction, Motion Sickness Past Psychological History: Anxiety, Depression Smoking Status: Never smoker Past Alcohol Use History: Occasional Past Drug Use History: None Reported - Past Family History Brother(s) Family Medical History: Cancer Additional Family Medical History / Comment(s): PROSTATE CANCER General Exam Limitations: no limitations Course Vital Signs 02/12/22 14:58 Temperature 98.3 F Pulse Rate 88 Respiratory 16 Rate Blood Pressure 125/90 O2 Sat by Pulse 98 Oximetry Medical Decision Making - Lab Data Result diagrams: 02/12/22 16:47 02/12/22 16:47 Lab Results 02/12/22 02/12/22 02/12/22 Range/Units 16:47 16:47 16:47 WBC 10.2 (3.8-10.6) k/uL RBC 4.76 (3.80-5.40) m/uL Hgb 14.4 (11.4-16.0) gm/dL Hct 45.3 (34.0-46.0) % MCV 95.1 (80.0-100.0) fL MCH 30.2 (25.0-35.0) pg MCHC 31.8 (31.0-37.0) g/dL RDW 12.9 (11.5-15.5) % Plt Count 259 (150-450) k/uL MPV 8.8 Neutrophils % 81 % Lymphocytes % 7 % Monocytes % 10 % Eosinophils % 0 % Basophils % 0 % Neutrophils # 8.2 H (1.3-7.7) k/uL Lymphocytes # 0.7 L (1.0-4.8) k/uL Monocytes # 1.0 (0-1.0) k/uL Eosinophils # 0.0 (0-0.7) k/uL Basophils # 0.0 (0-0.2) k/uL PT 10.9 (9.0-12.0) sec INR 1.0 (<1.2) APTT 27.6 (22.0-30.0) sec Sodium 134 L (137-145) mmol/L Potassium 4.1 (3.5-5.1) mmol/L Chloride 100 (98-107) mmol/L Carbon Dioxide 28 (22-30) mmol/L Anion Gap 6 mmol/L BUN 41 H (7-17) mg/dL Creatinine 1.65 H (0.52-1.04) mg/dL Est GFR (CKD-EPI)AfAm 35 (>60 ml/min/1.73 sqM) Est GFR (CKD-EPI)NonAf 31 (>60 ml/min/1.73 sqM) Glucose 108 H (74-99) mg/dL Plasma Lactic Acid Johann (0.7-2.0) mmol/L Calcium 9.1 (8.4-10.2) mg/dL Magnesium 2.4 H (1.6-2.3) mg/dL Total Bilirubin 0.6 (0.2-1.3) mg/dL AST 54 H (14-36) U/L ALT 32 (4-34) U/L Alkaline Phosphatase 107 (38-126) U/L Troponin I (0.000-0.034) ng/mL Total Protein 6.5 (6.3-8.2) g/dL Albumin 3.9 (3.5-5.0) g/dL Influenza Type A (PCR) (Not Detectd) Influenza Type B (PCR) (Not Detectd) RSV (PCR) (Not Detectd) SARS-CoV-2 (PCR) (Not Detectd) 02/12/22 02/12/22 02/12/22 Range/Units 16:47 16:47 16:47 WBC (3.8-10.6) k/uL RBC (3.80-5.40) m/uL Hgb (11.4-16.0) gm/dL Hct (34.0-46.0) % MCV (80.0-100.0) fL MCH (25.0-35.0) pg MCHC (31.0-37.0) g/dL RDW (11.5-15.5) % Plt Count (150-450) k/uL MPV Neutrophils % % Lymphocytes % % Monocytes % % Eosinophils % % Basophils % % Neutrophils # (1.3-7.7) k/uL Lymphocytes # (1.0-4.8) k/uL Monocytes # (0-1.0) k/uL Eosinophils # (0-0.7) k/uL Basophils # (0-0.2) k/uL PT (9.0-12.0) sec INR (<1.2) APTT (22.0-30.0) sec Sodium (137-145) mmol/L Potassium (3.5-5.1) mmol/L Chloride (98-107) mmol/L Carbon Dioxide (22-30) mmol/L Anion Gap mmol/L BUN (7-17) mg/dL Creatinine (0.52-1.04) mg/dL Est GFR (CKD-EPI)AfAm (>60 ml/min/1.73 sqM) Est GFR (CKD-EPI)NonAf (>60 ml/min/1.73 sqM) Glucose (74-99) mg/dL Plasma Lactic Acid Johann 1.9 (0.7-2.0) mmol/L Calcium (8.4-10.2) mg/dL Magnesium (1.6-2.3) mg/dL Total Bilirubin (0.2-1.3) mg/dL AST (14-36) U/L ALT (4-34) U/L Alkaline Phosphatase (38-126) U/L Troponin I 0.013 (0.000-0.034) ng/mL Total Protein (6.3-8.2) g/dL Albumin (3.5-5.0) g/dL Influenza Type A (PCR) Not Detected (Not Detectd) Influenza Type B (PCR) Not Detected (Not Detectd) RSV (PCR) Not Detected (Not Detectd) SARS-CoV-2 (PCR) Not Detected (Not Detectd) Disposition Clinical Impression: Paroxysmal atrial flutter, Grave disability Disposition: ADMITTED IP TO THIS [facility] Condition: Fair Referrals: Adriel Leon MD [Primary Care Provider] - 1-2 days Decision Time: 18:52
[2022-02-12 17:11] LABS: Basophils % (A) 0 %; Eosinophils % (A) 0 %; HCT 45.3 % (34.0-46.0); HGB 14.4 gm/dL (11.4-16.0); Lymphocytes # (A) 0.7 k/uL (1.0-4.8); Lymphocytes % (A) 7 %; MCH 30.2 pg (25.0-35.0); MCHC 31.8 g/dL (31.0-37.0); MCV 95.1 fL (80.0-100.0); Mean Platelet Volume 8.8; Monocytes % (A) 10 %; Neutrophils # (A) 8.2 k/uL (1.3-7.7); Neutrophils % (A) 81 %; Platelet Count 259 k/uL (150-450); RBC 4.76 m/uL (3.80-5.40); RDW 12.9 % (11.5-15.5); WBC 10.2 k/uL (3.8-10.6)
[2022-02-12 17:17] LABS: Partial Thromboplastin Time 27.6 sec (22.0-30.0); Prothrombin Time 10.9 sec (9.0-12.0)
[2022-02-12 17:28] LABS: Albumin 3.9 g/dL (3.5-5.0); Calcium 9.1 mg/dL (8.4-10.2); Magnesium 2.4 mg/dL (1.6-2.3); Potassium 4.1 mmol/L (3.5-5.1); Total Bilirubin 0.6 mg/dL (0.2-1.3); Total Protein 6.5 g/dL (6.3-8.2)
[2022-02-12] MEDS ORDERED: SODIUM CHLORIDE 0.9% 1,000 ML IV STA (18:08)
[2022-02-12] MEDS ORDERED: NALOXONE 0.4 MG/ML 1 ML VIAL IV PRN (18:47)
[2022-02-12] MEDS ORDERED: ONDANSETRON 4 MG/2 ML VIAL IVP PRN (18:47)
[2022-02-12] MEDS ORDERED: LEVOTHYROXINE 75 MCG TAB PO SCH (23:30)
[2022-02-12] MEDS: SUMAtriptan succinate 50 MG TAB PO PRN (23:45)
[2022-02-13] MEDS ORDERED: ALPRAZolam 0.5 MG TAB PO PRN (02:05)
--- NOTE | 2022-02-13 02:19 | P.HPIM ---
History of Present Illness H&P Date: 02/12/22 Chief Complaint: generalized weakness 71-year-old female hypothyroid hypertension Comes in with couple day history of generalized weakness and feeling debilitated. Denies any respiratory symptoms denies any diarrhea denies any abdominal pain denies any GI bleeding. She does report having dark urine. Today she decided to come in as she was having episodes of feeling dizzy and lightheaded couldn't do anything is not related to positional change her activity happens randomly throughout the day. She reports that this is totally not herself she denies any fevers or chills denies any focal neuro deficits denies any falls. Denies any recent travel or hospitalization. Patient denies any cardiac history denies any history of blood clots. Denies any sick contact. Patient denies any tobacco smoking illicit drugs or heavy alcohol consumption In the ED blood work showed acute kidney injury Viral panel was negative EKG no acute ST changes threat monitoring analyst didn't olive picker on short runs of SVT patient is admitted for cardiology evaluation Review of Systems Pertinent positives as noted in HPI. All other systems were reviewed and are negative Past Medical History Past Medical History: Cancer, Hypertension, Osteoarthritis (OA), Sleep Apnea/CPAP/BIPAP, Thyroid Disorder Additional Past Medical History / Comment(s): C-PAP MACHINE , PAST HX OF HTN, SCOLIOSIS, BACK PAIN, SQUAMOUS CELL SKIN CANCER History of Any Multi-Drug Resistant Organisms: None Reported Past Surgical History: Back Surgery, Bladder Surgery, Hysterectomy, Joint Replacement Additional Past Surgical History / Comment(s): LEFT ELBOW FX, t12 fracture surgery on 12/21/21 Past Anesthesia/Blood Transfusion Reactions: Postoperative Nausea & Vomiting (PONV) Additional Past Anesthesia/Blood Transfusion Reaction / Comment(s): no problems with blood transfusions Past Psychological History: Anxiety, Depression Smoking Status: Former smoker Past Alcohol Use History: Occasional Additional Past Alcohol Use History / Comment(s): SMOKED 1 YEAR IN HER LATE 20'S Past Drug Use History: Marijuana Additional Drug Use History / Comment(s): occastional maijuana use, last time being in late december/early january 2022. - Past Family History Brother(s) Family Medical History: Cancer Additional Family Medical History / Comment(s): PROSTATE CANCER, parkinsons Father Family Medical History: Myocardial Infarction (VT) Additional Family Medical History / Comment(s): of VT at 59 Mother Family Medical History: Congestive Heart Failure (CHF), Osteoarthritis (OA) Medications and Allergies Home Medications Medication Instructions Recorded Confirmed Type Levothyroxine Sodium [Synthroid] 75 mcg PO HS 03/23/19 02/12/22 History PARoxetine HCL [Paxil] 40 mg PO HS 03/23/19 02/12/22 History buPROPion HCL [Wellbutrin XL] 300 mg PO HS 03/23/19 02/12/22 History Cyclobenzaprine [Flexeril] 10 mg PO TID PRN #60 tab 12/21/21 02/12/22 Rx Sennosides-Docusate Sodium 1 tab PO BID PRN #60 tablet 12/21/21 02/12/22 Rx [Senokot-S] HYDROcodone/APAP 5-325MG [[place] 5] 1 tab PO Q6H PRN 12/25/21 02/12/22 History Magnesium Hydroxide [Milk of 7,200 mg PO Q48H PRN 12/25/21 02/12/22 History Magnesia Concentrate] Na Phos,M-B/Na Phos,Di-Ba [Fleet 133 ml RECTAL DAILY PRN 12/25/21 02/12/22 History Adult] bisacodyL [Dulcolax] 10 mg RECTAL Q24H PRN 12/25/21 02/12/22 History polyethylene glycoL 3350 [Miralax] 17 gm PO DAILY PRN 12/25/21 02/12/22 History Meclizine [Antivert] 25 mg PO TID PRN 02/12/22 02/12/22 History Multivitamins, Thera [Multivitamin 1 tab PO DAILY 02/12/22 02/12/22 History (formulary)] Rizatriptan Benzoate [Rizatriptan] 10 mg PO DAILY PRN 02/12/22 02/12/22 History amLODIPine [Norvasc] 5 mg PO DAILY 02/12/22 02/12/22 History Allergies Allergy/AdvReac Type Severity Reaction Status Date / Time erythromycin base AdvReac Unknown Abdominal Verified 02/12/22 17:04 Pain Physical Exam Vitals: Vital Signs Temp Pulse Pulse Resp BP BP Pulse Ox 02/12/22 19:11 99.3 F 81 17 156/80 95 07/12/22 19:10 98.3 F 87 16 115/90 97 02/12/22 14:58 98.3 F 88 16 125/90 98 Intake and Output 02/12/22 02/12/22 02/13/22 14:59 22:59 06:59 Other: Weight 56.699 kg 56.699 kg Constitutional: No acute distress, conversant, pleasant Eyes: Anicteric sclerae, moist conjunctiva, Pupils equal round reactive to light ENMT: NC/AT Oropharynx clear, no erythema, or exudates Neck: Supple, FROM, no masses, or JVD No carotid bruits No thyromegaly Lungs: Clear to auscultation Clear to percussion Normal respiratory effort, no accessory muscle use Cardiovascular: Heart regular in rate and rhythm, No murmurs, gallops, or rubs No peripheral edema Abdominal: Soft Nontender, no guarding, rebound or rigidity Abdomen moving with respiration Normoactive bowel sounds No hepatomegaly, No splenomegaly No palpable mass No abdominal wall hernia noted Skin: Normal temperature, tone, texture, turgor No induration No subcutaneous nodules No rash, lesions No ulcers Extremities: No digital cyanosis No clubbing Pedal pulses intact and symmetrical Radial pulses intact and symmetrical No calf tenderness Psychiatric: Alert and oriented to person, place and time Appropriate affect fair judgement Neuro Muscles Strength 5/5 in all 4 extremities Sensation to light touch grossly present throughout Cranial nerves II-XII grossly intact No focal sensory deficits Lymphatics: no palpable cervical or supraclavicular , or inguinal lymph nodes Results CBC & Chem 7: 02/12/22 16:47 02/12/22 16:47 Labs: Abnormal Lab Results - Last 24 Hours (Table) 02/12/22 02/12/22 Range/Units 16:47 16:47 Neutrophils # 8.2 H (1.3-7.7) k/uL Lymphocytes # 0.7 L (1.0-4.8) k/uL Sodium 134 L (137-145) mmol/L BUN 41 H (7-17) mg/dL Creatinine 1.65 H (0.52-1.04) mg/dL Glucose 108 H (74-99) mg/dL Magnesium 2.4 H (1.6-2.3) mg/dL AST 54 H (14-36) U/L Thrombosis Risk Factor Assmnt - Choose All That Apply Any of the Below Risk Factors Present?: Yes Each Risk Factor Represents 2 Points: Age 61-74 years Thrombosis Risk Factor Assessment Total Risk Factor Score: 2 Thrombosis Risk Factor Assessment Level: Low Risk Assessment and Plan Assessment: Paroxysmal SVT, telemetry showed possible A flutter BRITANY Continue with cardiac monitoring Cardiology consult Check TSH Check echocardiogram IV fluid hydration with normal saline Follow-up renal function Monitor urine output Chronic conditions Obstructive sleep apnea encourage patient to use CPAP Hypertension resume amlodipine DVT prophylaxis heparin subcu 3 times a day Full code
[2022-02-13] MEDS: PARoxetine 20 MG TAB PO SCH ×2 (02:37→21:57)
[2022-02-13] MEDS: buPROPion XL 300 MG TAB.ER.24H PO SCH ×2 (02:37→21:57)
[2022-02-13] MEDS: SODIUM CHLORIDE 0.9% 1,000 ML IV SCH ×3 (02:48→21:54)
[2022-02-13] MEDS: amLODIPine 5 MG TAB PO SCH (09:03)
[2022-02-13] MEDS: HEPARIN SODIUM,PORCINE/PF 5,000 UNIT/0.5 ML SYRINGE SQ SCH ×3 (09:03→23:45)
[2022-02-13 10:30] LABS: African American GFR (CKD) 43 (>60 ml/min/1.73 sqM); Anion Gap 4 mmol/L; Blood Urea Nitrogen 33 mg/dL (7-17); Calcium 8.4 mg/dL (8.4-10.2); Carbon Dioxide 28 mmol/L (22-30); Chloride 104 mmol/L (98-107); Glucose 89 mg/dL (74-99); Non-African American GFR(CKD) 37 (>60 ml/min/1.73 sqM); Potassium 3.7 mmol/L (3.5-5.1); Sodium 136 mmol/L (137-145)
--- NOTE | 2022-02-13 12:12 | CA ---
Transthoracic Echo Report Name: Paola Cuevas Age: 71 Gender: F : 1950 Exam Date: 02/13/2022 07:42 Exam Location: [facility] Ht (in): 68 Wt (lb): 125 Ordering Physician: Kareem Lee MD Attending/Referring Phys: [id number], Jesus Mailing Machine Assistant Isa Acosta RDCS Procedure CPT: Indications: a flutter Cardiac Hx: Technical Quality: Fair Contrast 1: Total Dose (mL): Contrast 2: Total Dose (mL): MEASUREMENTS (Male / Female) Normal Values 2D ECHO LV Diastolic Diameter PLAX 3.2 cm 4.2 - 5.9 / 3.9 - 5.3 cm LV Systolic Diameter PLAX 1.8 cm IVS Diastolic Thickness 1.6 cm 0.6 - 1.0 / 0.6 - 0.9 cm LVPW Diastolic Thickness 1.6 cm 0.6 - 1.0 / 0.6 - 0.9 cm LV Relative Wall Thickness 1.0 M-MODE Aortic Root Diameter MM 3.4 cm LA Systolic Diameter MM 2.6 cm LA Ao Ratio MM 0.8 MV E Point Septal Separation 2.0 cm AV Cusp Separation MM 1.8 cm DOPPLER AV Peak Velocity 137.5 cm/s AV Peak Gradient 7.6 mmHg AI Peak Velocity 289.8 cm/s AI Peak Gradient 33.6 mmHg AI Pressure Half Time 591.6 ms MV Area PHT 3.5 cm??? MR Peak Velocity 131.6 cm/s MR Peak Gradient 6.9 mmHg Mitral E Point Velocity 76.7 cm/s Mitral A Point Velocity 86.4 cm/s Mitral E to A Ratio 0.9 MV Deceleration Time 214.0 ms TR Peak Velocity 188.8 cm/s TR Peak Gradient 14.3 mmHg Right Ventricular Systolic Press 18.0 mmHg FINDINGS Left Ventricle Severely increased septal wall thickness. Severely increased posterior wall thickness. Left ventricular ejection fraction is estimated at 55-60_ %. Left ventricular cavity size normal. Right Ventricle The right ventricle is normal in size and function. Right Atrium The right atrium is normal in size. Left Atrium The left atrium is normal in size. Mitral Valve Structurally normal mitral valve without significant stenosis or prolapse. There is trace mitral regurgitation. Mitral anulus calcification Aortic Valve Aortic sclerosis with no evidence of stenosis. There is mild aortic regurgitation. Tricuspid Valve Structurally normal tricuspid valve without significant stenosis. Pulmonary artery systolic pressure is normal. Trace tricuspid regurgitation. Pulmonic Valve Was not visualized. There is no pulmonic regurgitation. Pericardium Normal pericardium without effusion. Aorta Normal aortic root dimension. CONCLUSIONS 1. Normal left ventricle size and systolic function 2. Aortic sclerosis with mild aortic regurgitation 3. Trace mitral and tricuspid regurgitation. Previewed by: Dr. Jeovany Ortiz MD (Electronically Signed) Final Date: 13 February 2022 12:11
[2022-02-13] MEDS: METOPROLOL TARTRATE 12.5 MG TAB PO SCH ×2 (13:08→21:57)
--- NOTE | 2022-02-13 16:36 | P.PN ---
Progress Note - Text Progress Note Date: 02/13/22 CC: Weak Ms. Cuevas was seen and examined. Denies any complaints such as lightheade dness, chest pain or shortness of breath. Vitals: Reviewed General: No acute distress HEENT: Mucous membranes moist neck supple Cardiovascular: RRR, S1-S2 Lungs: Breath sounds equal and clear to auscultation bilaterally. No wheezing, rhonchi or rales Abdomen: Soft, nontender, nondistended Extremities: No lower extremity edema Assessment and plan 1. Tachyarrhythmia, resolved Some questionable A flutter-initial EKG reviewed and does reveal possible 3-1 atrial flutter but also may be artifact. Repeat EKG sinus rhythm. Echocardiogram ordered. Continue telemetry monitoring. Optimize electrolytes. Cardiology was consulted. Started on low-dose Toprol. 2. History of hypothyroidism TSH low normal. We will aim for mid-normal due to tachycardia. Decrease home levothyroxine dose to 50 g daily from 75 g daily. 3. Specified psych disorder, anxiety Continue home psychiatric medications 4. Hypertension Elevated. Continue home amlodipine. Metoprolol added today by cardiology. We will monitor response and increase dose of medications as needed. 6. BRITANY versus CKD Creatinine elevated on admission, trending down with fluids. I do not have a baseline. Avoid nephrotoxins. 7. BONG Continue home CPAP 8. Debility PT/OT VTE prophylaxis with subcu heparin Disposition: Anticipate ready for discharge within 24-48 hours. Will likely need placement.
--- NOTE | 2022-02-13 21:18 | CONS ---
CONSULTATION This is a 71-year-old lady with a known history of hypertension and also history of hypothyroidism and some chronic pain issues. She came into the hospital yesterday mainly because of generalized weakness and also some diarrhea and did not have any energy, and she was seen by her physical therapist, who felt that she was very weak and sent her here. An EKG was performed and they thought she had some atrial flutter and I was asked to see her. On reviewing the EKG and the rhythm strips, there is no evidence of any atrial flutter, but there is a lot of artifact that looks like atrial flutter. She has no active cardiac problems. She is resting comfortably. Vitals are stable. No JVD. S1-S2 heard normally. Rhythm is regular. Short systolic murmur at left sternal border. Lungs reveal diminished air entry. Abdomen is soft, nontender. Lower extremities reveal normal pulses. No edema. Central nervous system is grossly within normal limits. IMPRESSION: 1. Generalized weakness. 2. Atrial flutter not evident on EKG or rhythm strips. 3. Hypertension. 4. Hypothyroidism. RECOMMENDATIONS: I am recommending an echo, a TSH level. We will place her on 12.5 mg b.i.d. of metoprolol tartrate and based on clinical course I will make further recommendations. However, we will continue to monitor her for another 24 hours to see if she has any atrial flutter, which is not evident upon reviewing the rhythm strips and EKG. Thank you very much for the consult. MMJANY / SHWETHAN: [id number] /
[2022-02-13] MEDS ORDERED: CALCIUM CARBONATE 500 MG CHEWABLE PO PRN (23:20)
[2022-02-14] MEDS: SODIUM CHLORIDE 0.9% 1,000 ML IV SCH ×2 (06:06→08:55)
[2022-02-14] MEDS: LEVOTHYROXINE 50 MCG TAB PO SCH (06:13)
[2022-02-14 08:12] LABS: Basophils % (A) 1 %; Eosinophils # (A) 0.1 k/uL (0-0.7); Eosinophils % (A) 2 %; HCT 38.6 % (34.0-46.0); HGB 12.8 gm/dL (11.4-16.0); Lymphocytes # (A) 1.2 k/uL (1.0-4.8); Lymphocytes % (A) 25 %; MCH 32.3 pg (25.0-35.0); MCHC 33.1 g/dL (31.0-37.0); MCV 97.6 fL (80.0-100.0); Mean Platelet Volume 9.3; Monocytes # (A) 0.6 k/uL (0-1.0); Monocytes % (A) 12 %; Neutrophils # (A) 2.9 k/uL (1.3-7.7); Neutrophils % (A) 59 %; Platelet Count 208 k/uL (150-450); RBC 3.96 m/uL (3.80-5.40); RDW 13.3 % (11.5-15.5)
[2022-02-14 08:34] LABS: Calcium 8.4 mg/dL (8.4-10.2); Magnesium 1.8 mg/dL (1.6-2.3); Phosphorus 2.8 mg/dL (2.5-4.5); Potassium 3.2 mmol/L (3.5-5.1)
[2022-02-14] MEDS: HEPARIN SODIUM,PORCINE/PF 5,000 UNIT/0.5 ML SYRINGE SQ SCH ×3 (08:54→22:57)
[2022-02-14] MEDS: METOPROLOL TARTRATE 12.5 MG TAB PO SCH ×2 (08:54→21:30)
[2022-02-14] MEDS: amLODIPine 5 MG TAB PO SCH (08:54)
[2022-02-14] MEDS ORDERED: LEVOTHYROXINE 75 MCG TAB PO SCH (09:00)
[2022-02-14] MEDS ORDERED: POTASSIUM CHLORIDE ER 20 MEQ TAB.ER PO STA (13:15)
--- NOTE | 2022-02-14 13:46 | P.PN ---
Subjective Progress Note Date: 02/14/22 Hospital course: Patient is a very pleasant 71-year-old female with a past medical history of hypertension, hypothyroidism, obstructive sleep apnea CPAP dependent nightly, osteoarthritis, anxiety, and squamous cell Skin cancer. She presented to the hospital on 02/12/22 with a chief complaint of generalized weakness, dizziness, and lightheadedness. She underwent full evaluation in the emergency department and was found. EKG revealing sinus rhythm and 90 bpm, with no noted ST depre ssion or elevation showing no signs of acute ischemia. CBC was unremarkable. Coags normal findings. BMP revealed mild hyponatremia with sodium of 134 and in acute kidney injury with BUN of 41, creatinine 1.65, and GFR of 31. TSH was normal findings is 0.957. Influenza A, influenza B, RSV, and Covid PCR were all negative. In the ER patient had noted short runs of SVT/atrial flutter, however this was not picked up on EKG or rhythm strips. Patient was admitted under our services with consultation to cardiology. She has received IV fluid hydration for an acute kidney injury which has now resolved. Echocardiogram was completed revealing a severely increased septal and posterior wall thickness with a preserved EF of 55-60%, aortic sclerosis and mild aortic regurgitation. Patient was seen and evaluated by cardiology who started patient on metoprolol 12.5 mg twice daily. Heart rate has been controlled. Patient denies having any headache, lightheadedness, dizziness, chest pain, palpitations, shortness of breath, cough, or congestion. Patient is medically stable at this time and is awaiting insurance authorization for discharge to [facility]. Physical exam: Patient seen and fully evaluated at bedside this morning. She was alert and oriented to person, place, time, and situation. Patient reports feeling better, but states she remains generally weak and continues to have difficulty with ambulation. She denied having any complaints at this time and is currently awaiting insurance authorization for transfer to SNF for rehab. Vital signs reviewed and stable. General: Nontoxic, no distress and appears stated age. Derm: Skin warm and dry, normal coloration for ethnicity. Head: Atraumatic, normocephalic and symmetric. Eyes: EOMs intact, no lid lag, and anicteric sclera Mouth: no lip lesions, mucus membranes moist Cardiovascular: regular rate and rhythm with normal S1S2, no murmur, positive posterior tibial pulses bilaterally, and cap refill < 2 seconds. Lungs: Respirations even, regular, and unlabored on room air. Lungs CTA bilater ally, no rhonchi, no rales, no wheezing, and no accessory muscle usage. Abdominal: soft, nontender to palpation, no guarding, no appreciable organomegaly Ext: ROM intact. No gross muscle atrophy, no edema, no contractures Neuro: Speech clear, face symmetrical and CN II-XII grossly intact with no noted focal neuro deficits Psych: Alert and oriented to person, place, time, and situation. Appropriate and pleasant affect. Assessment and Plan of Care: Tachyarrhythmia, resolved -Questionable nonsustained runs of SVT/atrial flutter -Cardiology following, started patient on metoprolol 12.5 mg twice daily -Telemetry monitoring. Acute kidney injury, resolved after IV fluid hydration. -BUN 16, creatinine 0.96, and GFR 59. Hypokalemia -Potassium 3.2, replaced. Hypothyroidism -Levothyroxine decreased to 50 g daily. Hypertension -Monitor vital signs and Continue daily medication regimen with amlodipine and metoprolol was added for suspected tachyarrhythmia. Obstructive sleep apnea -Continue use of CPAP nightly and while napping. Debility -PT/OT -Transferred to SNF upon discharge. CODE STATUS: DO NOT RESUSCITATE/DO NOT INTUBATE DVT prophylaxis: Heparin Discussed with: Patient and RN Anticipated discharge date: Pending insurance authorization Anticipated discharge place: [facility] A total of 36 minutes was spent on the care of this complex patient more than 50% of the time was spent in counseling and care coordination. Objective - Vital Signs Vital signs: Vital Signs Temp 98.3 F 02/14/22 08:13 Pulse 60 02/14/22 08:13 Resp 16 02/14/22 08:13 BP 133/64 02/14/22 08:13 Pulse Ox 94 L 02/14/22 08:13 FiO2 Intake & Output 02/13/22 02/14/22 02/14/22 18:59 06:59 18:59 Intake Total 1220 Output Total 700 Balance 520 Intake: Intake, IV Titration 1040 Amount Sodium Chloride 0.9% 1, 1040 000 ml @ 130 mls/hr IV . Q7H42M [facility] Rx#:[id number] Oral 180 Output: Urine 700 Other: Voiding Method Toilet Toilet Bedside Commode Bedside Commode Diaper Diaper # Voids 1 - Labs CBC & Chem 7: 02/14/22 07:53 02/14/22 07:53 Labs: Abnormal Lab Results - Last 24 Hours (Table) 02/13/22 02/14/22 Range/Units 08:58 07:53 Sodium 136 L (137-145) mmol/L Potassium 3.2 L (3.5-5.1) mmol/L BUN 33 H (7-17) mg/dL Creatinine 1.41 H (0.52-1.04) mg/dL
[2022-02-14] MEDS: PARoxetine 20 MG TAB PO SCH (21:30)
[2022-02-14] MEDS: buPROPion XL 300 MG TAB.ER.24H PO SCH (21:30)
[2022-02-14] MEDS: SUMAtriptan succinate 50 MG TAB PO PRN (22:56)
[2022-02-15] MEDS: LEVOTHYROXINE 50 MCG TAB PO SCH (06:01)
[2022-02-15] MEDS: HEPARIN SODIUM,PORCINE/PF 5,000 UNIT/0.5 ML SYRINGE SQ SCH ×2 (08:35→16:18)
[2022-02-15] MEDS: METOPROLOL TARTRATE 12.5 MG TAB PO SCH ×2 (08:35→20:35)
[2022-02-15] MEDS: amLODIPine 5 MG TAB PO SCH (08:35)
--- NOTE | 2022-02-15 14:41 | P.PN ---
Subjective Progress Note Date: 02/15/22 Hospital course: Patient is a very pleasant 71-year-old female with a past medical history of hypertension, hypothyroidism, obstructive sleep apnea CPAP dependent nightly, osteoarthritis, anxiety, and squamous cell Skin cancer. She presented to the hospital on 02/12/22 with a chief complaint of generalized weakness, dizziness, and lightheadedness. She underwent full evaluation in the emergency department and was found. EKG revealing sinus rhythm and 90 bpm, with no noted ST depre ssion or elevation showing no signs of acute ischemia. CBC was unremarkable. Coags normal findings. BMP revealed mild hyponatremia with sodium of 134 and in acute kidney injury with BUN of 41, creatinine 1.65, and GFR of 31. TSH was normal findings is 0.957. Influenza A, influenza B, RSV, and Covid PCR were all negative. In the ER patient had noted short runs of SVT/atrial flutter, however this was not picked up on EKG or rhythm strips. Patient was admitted under our services with consultation to cardiology. She has received IV fluid hydration for an acute kidney injury which has now resolved. Echocardiogram was completed revealing a severely increased septal and posterior wall thickness with a preserved EF of 55-60%, aortic sclerosis and mild aortic regurgitation. Patient was seen and evaluated by cardiology who started patient on metoprolol 12.5 mg twice daily. Heart rate has been controlled. Patient denies having any headache, lightheadedness, dizziness, chest pain, palpitations, shortness of breath, cough, or congestion. Patient is medically stable at this time and is awaiting insurance authorization for discharge to [facility]. Physical exam: Patient seen and fully evaluated at bedside this morning. She was alert and oriented to person, place, time, and situation. She is currently awaiting insurance authorization for discharge to [facility]. Repeat Covid testing to be completed as requested by [facility]. Patient denies having any questions, needs, or concerns at this time. She denies having any pain or complaints. Vital signs reviewed and stable. General: Nontoxic, no distress and appears stated age. Derm: Skin warm and dry, normal coloration for ethnicity. Head: Atraumatic, normocephalic and symmetric. Eyes: EOMs intact, no lid lag, and anicteric sclera Mouth: no lip lesions, mucus membranes moist Cardiovascular: regular rate and rhythm with normal S1S2, no murmur, positive posterior tibial pulses bilaterally, and cap refill < 2 seconds. Lungs: Respirations even, regular, and unlabored on room air. Lungs CTA bilaterally, no rhonchi, no rales, no wheezing, and no accessory muscle usage. Abdominal: soft, nontender to palpation, no guarding, no appreciable organomegaly Ext: ROM intact. No gross muscle atrophy, no edema, no contractures Neuro: Speech clear, face symmetrical and CN II-XII grossly intact with no noted focal neuro deficits Psych: Alert and oriented to person, place, time, and situation. Appropriate and pleasant affect. Assessment and Plan of Care: Tachyarrhythmia, resolved -Questionable nonsustained runs of SVT/atrial flutter -Cardiology following, started patient on metoprolol 12.5 mg twice daily and recommending outpatient follow-up with their office in 2 weeks -Telemetry monitoring. Acute kidney injury, resolved after IV fluid hydration. -BUN 16, creatinine 0.96, and GFR 59. Hypokalemia -Potassium 3.2, replaced. Hypothyroidism -Levothyroxine decreased to 50 g daily. Hypertension -Monitor vital signs and Continue daily medication regimen with amlodipine and metoprolol was added for suspected tachyarrhythmia. Obstructive sleep apnea -Continue use of CPAP nightly and while napping. Debility -PT/OT -Transferred to SNF upon discharge. CODE STATUS: DO NOT RESUSCITATE/DO NOT INTUBATE DVT prophylaxis: Heparin Discussed with: Patient and RN Anticipated discharge date: Pending insurance authorization Anticipated discharge place: [facility] A total of 32 minutes was spent on the care of this complex patient more than 50% of the time was spent in counseling and care coordination. I reviewed the documentation as provided by the FELICIANO above, who is the original author of this note. I agree with the documented assessment and plan, with the following changes: none Objective - Vital Signs Vital signs: Vital Signs Temp 98.0 F 02/15/22 07:20 Pulse 97 02/15/22 07:20 Resp 16 02/15/22 04:00 BP 163/90 02/15/22 07:20 Pulse Ox 94 L 02/15/22 04:00 FiO2 Intake & Output 02/14/22 02/15/22 02/15/22 18:59 06:59 18:59 Intake Total 520 Output Total 1 Balance 520 -1 Intake: Intake, IV Titration 520 Amount Sodium Chloride 0.9% 1, 520 000 ml @ 130 mls/hr IV . Q7H42M [facility] Rx#:[id number] Output: Urine 1 Other: Voiding Method Toilet Toilet Bedside Commode Bedside Commode Diaper Diaper # Voids 2 - Labs CBC & Chem 7: 02/14/22 07:53 02/14/22 07:53 Labs: Abnormal Lab Results - Last 24 Hours (Table) 02/14/22 Range/Units 07:53 Potassium 3.2 L (3.5-5.1) mmol/L
[2022-02-15 20:05] VITALS: RESP 16
[2022-02-15] MEDS: PARoxetine 20 MG TAB PO SCH (20:35)
[2022-02-15] MEDS: buPROPion XL 300 MG TAB.ER.24H PO SCH (20:35)
[2022-02-15] MEDS: SUMAtriptan succinate 50 MG TAB PO PRN (20:36)
[2022-02-16] MEDS: HEPARIN SODIUM,PORCINE/PF 5,000 UNIT/0.5 ML SYRINGE SQ SCH ×2 (00:58→10:26)
[2022-02-16] MEDS: LEVOTHYROXINE 50 MCG TAB PO SCH (05:32)
[2022-02-16 08:29] LABS: Albumin 3.5 g/dL (3.5-5.0); Calcium 8.9 mg/dL (8.4-10.2); Magnesium 1.8 mg/dL (1.6-2.3); Potassium 3.7 mmol/L (3.5-5.1); Total Bilirubin 0.4 mg/dL (0.2-1.3)
[2022-02-16 08:37] VITALS: BP 129/82; PULSE 69; TEMP 98.5
[2022-02-16] MEDS: METOPROLOL TARTRATE 12.5 MG TAB PO SCH (10:24)
[2022-02-16] MEDS: amLODIPine 5 MG TAB PO SCH (10:25)
--- NOTE | 2022-02-16 10:33 | P.DS ---
Providers Date of admission: 02/12/22 18:47 Expected date of discharge: 02/16/22 Attending physician: Rod Tovar MD Consults: 02/12/22 18:47 Consult Physician Routine Consulting Provider: Jeovany Ortiz Consult Reason/Comments: paroxysmal episodic atrial flutter Do you want consulting provider notified?: Yes Primary care physician: Adriel Sol [facility] Course: Discharge Diagnosis: Tachyarrhythmia, resolved. Patient was started on metoprolol 12.5 mg twice daily and recommended to follow-up outpatient with cardiology in 2 weeks. Acute kidney injury, resolved after IV fluid hydration. Hypokalemia, resolved Hypothyroidism. Levothyroxine decreased to 50 g daily. Hypertension. Monitor vital signs and Continue daily medication regimen with amlodipine and metoprolol. Obstructive sleep apnea. Continue use of CPAP nightly and while napping. Debility. PT/OT and Transferred to [facility] upon discharge. Hospital Course: Patient is a very pleasant 71-year-old female with a past medical history of hypertension, hypothyroidism, obstructive sleep apnea CPAP dependent nightly, osteoarthritis, anxiety, and squamous cell Skin cancer. She presented to the hospital on 02/12/22 with a chief complaint of generalized weakness, dizziness, and lightheadedness. She underwent full evaluation in the emergency department and was found. EKG revealing sinus rhythm and 90 bpm, with no noted ST depression or elevation showing no signs of acute ischemia. CBC was unremarkabl e. Coags normal findings. BMP revealed mild hyponatremia with sodium of 134 and in acute kidney injury with BUN of 41, creatinine 1.65, and GFR of 31. TSH was normal findings is 0.957. Influenza A, influenza B, RSV, and Covid PCR were all negative. In the ER patient had noted short runs of SVT/atrial flutter, however this was not picked up on EKG or rhythm strips. Patient was admitted under our services with consultation to cardiology. She has received IV fluid hydration for an acute kidney injury which has now resolved. Echocardiogram was completed revealing a severely increased septal and posterior wall thickness with a preserved EF of 55-60%, aortic sclerosis and mild aortic regurgitation. Patient was seen and evaluated by cardiology who started patient on metoprolol 12.5 mg twice daily. Heart rate has been controlled. Patient denies having any headache, lightheadedness, dizziness, chest pain, palpitations, shortness of breath, cough, or congestion. Patient is medically stable at this time and has obtained insurance authorization for discharge to [facility]. Physical exam: Patient seen and fully evaluated at bedside this morning. She was alert and oriented to person, place, time, and situation. Repeat Covid testing completed yesterday was negative. Patient has received insurance authorization and is medically stable for discharge at this time. Patient denies having any questions, needs, concerns, or complaints. She is medically stable for discharge to rehab. Vital signs reviewed and stable. General: Nontoxic, no distress and appears stated age. Derm: Skin warm and dry, normal coloration for ethnicity. Head: Atraumatic, normocephalic and symmetric. Eyes: EOMs intact, no lid lag, and anicteric sclera Mouth: no lip lesions, mucus membranes moist Cardiovascular: regular rate and rhythm with normal S1S2, no murmur, positive posterior tibial pulses bilaterally, and cap refill < 2 seconds. Lungs: Respirations even, regular, and unlabored on room air. Lungs CTA bilaterally, no rhonchi, no rales, no wheezing, and no accessory muscle usage. Abdominal: soft, nontender to palpation, no guarding, no appreciable organomegaly Ext: ROM intact. No gross muscle atrophy, no edema, no contractures Neuro: Speech clear, face symmetrical and CN II-XII grossly intact with no noted focal neuro deficits Psych: Alert and oriented to person, place, time, and situation. Appropriate and pleasant affect. A total of 36 minutes of time were spent preparing this complex discharge summary. Pt was discharged on 02/16/22 at 9:58 AM. Patient Condition at Discharge: Stable Plan - Discharge Summary Discharge Rx Participant: Yes New Discharge Prescriptions: New Metoprolol Tartrate [Lopressor] 12.5 mg PO BID #0 tab Levothyroxine Sodium [Synthroid] 50 mcg PO Q24H tab Continue buPROPion HCL [Wellbutrin XL] 300 mg PO HS PARoxetine HCL [Paxil] 40 mg PO HS Cyclobenzaprine [Flexeril] 10 mg PO TID PRN #60 tab PRN Reason: Muscle Spasm Sennosides-Docusate Sodium [Senokot-S] 1 tab PO BID PRN #60 tablet PRN Reason: Constipation Na Phos,M-B/Na Phos,Di-Ba [Fleet Adult] 133 ml RECTAL DAILY PRN PRN Reason: Constipation Magnesium Hydroxide [Milk of Magnesia Concentrate] 7,200 mg PO Q48H PRN PRN Reason: Constipation Multivitamins, Thera [Multivitamin (formulary)] 1 tab PO DAILY HYDROcodone/APAP 5-325MG [Hugo 5-325] 1 tab PO Q6H PRN #12 tab PRN Reason: Pain polyethylene glycoL 3350 [Miralax] 17 gm PO DAILY PRN PRN Reason: Constipation bisacodyL [Dulcolax] 10 mg RECTAL Q24H PRN PRN Reason: Constipation amLODIPine [Norvasc] 5 mg PO DAILY Meclizine [Antivert] 25 mg PO TID PRN PRN Reason: Vertigo Rizatriptan Benzoate [Rizatriptan] 10 mg PO DAILY PRN PRN Reason: Migraine Headache Discontinued Levothyroxine Sodium [Synthroid] 75 mcg PO HS Discharge Medication List PARoxetine HCL [Paxil] 40 mg PO HS 03/23/19 [History] buPROPion HCL [Wellbutrin XL] 300 mg PO HS 03/23/19 [History] Cyclobenzaprine [Flexeril] 10 mg PO TID PRN #60 tab 12/21/21 [Rx] Sennosides-Docusate Sodium [Senokot-S] 1 tab PO BID PRN #60 tablet 12/21/21 [Rx] Magnesium Hydroxide [Milk of Magnesia Concentrate] 7,200 mg PO Q48H PRN 12/25/21 [History] Na Phos,M-B/Na Phos,Di-Ba [Fleet Adult] 133 ml RECTAL DAILY PRN 12/25/21 [History] bisacodyL [Dulcolax] 10 mg RECTAL Q24H PRN 12/25/21 [History] polyethylene glycoL 3350 [Miralax] 17 gm PO DAILY PRN 12/25/21 [History] Meclizine [Antivert] 25 mg PO TID PRN 02/12/22 [History] Multivitamins, Thera [Multivitamin (formulary)] 1 tab PO DAILY 02/12/22 [History] Rizatriptan Benzoate [Rizatriptan] 10 mg PO DAILY PRN 02/12/22 [History] amLODIPine [Norvasc] 5 mg PO DAILY 02/12/22 [History] HYDROcodone/APAP 5-325MG [Hugo 5-325] 1 tab PO Q6H PRN #12 tab 02/16/22 [Rx] Levothyroxine Sodium [Synthroid] 50 mcg PO Q24H tab 02/16/22 [Rx] Metoprolol Tartrate [Lopressor] 12.5 mg PO BID #0 tab 02/16/22 [Rx] Follow up Appointment(s)/Referral(s): Elier Quintero MD [STAFF PHYSICIAN] - 1 Week Adriel Leon MD [Primary Care Provider] - 1-2 days Activity/Diet/Wound Care/Special Instructions: Activity: As tolerated. Take breaks as needed. Diet: Heart healthy and carb consistent diet. Avoid salts, or foods with hidden salts such as canned or boxed foods and frozen dinners. Extra salt makes your heart work harder and traps the fluid in your body for longer. Special Instructions: Take all of your medications as directed and remember to keep all of your doctor's appointments and follow-up as needed. Thank you for allowing us to participate in your care, it was truly a pleasure having you for our patient!!!
== END 2022-02-16 12:44 | DRG 309 ==
LOC: EC 14:56 → 3SCARD 18:47
PROVIDERS: ADMIT Hospitalist; ATTEND Hospitalist
DX: I47.1 Supraventricular tachycardia (principal); E87.1 Hypo-osmolality and hyponatremia; N17.9 Acute kidney failure, unspecified; E86.0 Dehydration; E03.9 Hypothyroidism, unspecified; E87.6 Hypokalemia; F32.A Depression, unspecified; F41.9 Anxiety disorder, unspecified; G47.33 Obstructive sleep apnea (adult) (pediatric); I10 Essential (primary) hypertension; G89.29 Other chronic pain; I45.9 Conduction disorder, unspecified; I48.92 Unspecified atrial flutter; I70.0 Atherosclerosis of aorta; I35.1 Nonrheumatic aortic (valve) insufficiency; M41.9 Scoliosis, unspecified; Z66 Do not resuscitate; Z79.890 Hormone replacement therapy; Z79.899 Other long term (current) drug therapy; Z82.0 Family history of epilepsy and other diseases of the nervous system; Z82.49 Family history of ischemic heart disease and other diseases of the circulatory system; Z85.828 Personal history of other malignant neoplasm of skin; Z87.891 Personal history of nicotine dependence; Z20.822 Contact with and (suspected) exposure to COVID-19; Z88.1 Allergy status to other antibiotic agents; R53.81 Other malaise
CPT/HCPCS: 36415; 80048; 80053; 83605; 83735; 84100; 84443; 84484; 85025; 85610; 85730; 87635; 87636; 93005; 93306; 99285

== ENCOUNTER 2022-10-02 12:06 | Inpatient (IN) | payer MEDICARE, OTHER ==
[2022-10-02] MEDS ORDERED: SODIUM CHLORIDE 0.9% 2,000 ML IV ONE (12:43)
[2022-10-02] MEDS ORDERED: ONDANSETRON 4 MG/2 ML VIAL IVP STA (12:43)
--- NOTE | 2022-10-02 12:45 | ED ---
General Adult HPI - General Chief complaint: Abdominal Pain Stated complaint: abd pain Time Seen by Provider: 10/02/22 12:10 Source: patient, EMS, RN notes reviewed, old records reviewed Mode of arrival: EMS Limitations: no limitations - History of Present Illness Initial comments: This is a 72-year-old female who presents emergency Department complaining of abdominal pain more in the left side for the last 3 days. Patient states getting progressively worse. Patient states she's been vomiting and having diarrhea for the last 2 days. Patient denies any fever chills. Patient denies any back pain. Patient denies any dyspnea. Patient denies any chest pain. Patient denies any dysuria hematuria urinary frequency. Patient denies any lightheadedness or dizziness but she does state that she feels so weak when she stands up because she's not been taking anything and been vomiting and having diarrhea. - Related Data Home Medications Medication Instructions Recorded Confirmed PARoxetine HCL [Paxil] 40 mg PO DAILY@1500 03/23/19 10/02/22 buPROPion HCL [Wellbutrin XL] 300 mg PO DAILY@1500 03/23/19 10/02/22 Rizatriptan Benzoate [Rizatriptan] 10 mg PO DAILY PRN 02/12/22 10/02/22 atenoloL 25 mg PO DAILY@1500 10/02/22 10/02/22 Allergies Allergy/AdvReac Type Severity Reaction Status Date / Time erythromycin base AdvReac Unknown Abdominal Verified 10/02/22 16:18 Pain Review of Systems ROS Statement: Those systems with pertinent positive or pertinent negative responses have been documented in the HPI. ROS Other: All systems not noted in ROS Statement are negative. Past Medical History Past Medical History: Cancer, Hypertension, Osteoarthritis (OA), Sleep Apnea/CPAP/BIPAP, Thyroid Disorder Additional Past Medical History / Comment(s): C-PAP MACHINE , PAST HX OF HTN, SCOLIOSIS, BACK PAIN, SQUAMOUS CELL SKIN CANCER History of Any Multi-Drug Resistant Organisms: None Reported Past Surgical History: Back Surgery, Bladder Surgery, Hysterectomy, Joint Replacement Additional Past Surgical History / Comment(s): LEFT ELBOW FX, t12 fracture surgery on 12/21/21 Past Anesthesia/Blood Transfusion Reactions: Postoperative Nausea & Vomiting (PONV) Additional Past Anesthesia/Blood Transfusion Reaction / Comment(s): no problems with blood transfusions Past Psychological History: Anxiety, Depression Smoking Status: Former smoker Past Alcohol Use History: Occasional Past Drug Use History: Marijuana - Past Family History Brother(s) Family Medical History: Cancer Additional Family Medical History / Comment(s): PROSTATE CANCER, parkinsons Father Family Medical History: Myocardial Infarction ([place]) Additional Family Medical History / Comment(s): of [place] at 59 Mother Family Medical History: Congestive Heart Failure (CHF), Osteoarthritis (OA) General Exam - General Exam Comments Initial Comments: GENERAL: Patient is well-developed and well-nourished. Patient is nontoxic and well- hydrated and is in mild distress. ENT: Neck is soft and supple. No significant lymphadenopathy is noted. Oropharynx is clear. Dry mucous membranes. Neck has full range of motion without eliciting any pain. EYES: The sclera were anicteric and conjunctiva were pink and moist. Extraocular movements were intact and pupils were equal round and reactive to light. Eyelids were unremarkable. PULMONARY: Unlabored respirations. Good breath sounds bilaterally. No audible rales rhonchi or wheezing was noted. CARDIOVASCULAR: There is a regular rate and rhythm without any murmurs gallops or rubs. ABDOMEN: Stress tenderness bilateral lower quadrants but more so on the left than the right. SKIN: Skin is clear with no lesions or rashes and otherwise unremarkable. NEUROLOGIC: Patient is alert and oriented x3. Cranial nerves II through XII are grossly intact. Motor and sensory are also intact. Normal speech, volume and content. Symmetrical smile. MUSCULOSKELETAL: Normal extremities with adequate strength and full range of motion. LYMPHATICS: No significant lymphadenopathy is noted PSYCHIATRIC: Normal psychiatric evaluation. Limitations: no limitations Course Vital Signs 10/02/22 10/02/22 12:07 15:54 Temperature 97.9 F Pulse Rate 66 57 L Respiratory 18 18 Rate Blood Pressure 110/71 93/77 O2 Sat by Pulse 94 L 94 L Oximetry Medical Decision Making - Medical Decision Making EKG was interpreted by myself. EKG shows a sinus bradycardia at 59 bpm WA interval is 120 QRS is 89 QT interval is 286 QTC is 286. Patient's EKG shows no ST segment elevation or depression Was pt. sent in by a medical professional or institution (, PA, PRODUCER ARBORIST MANAGER, urgent care, hospital, or [facility]...) When possible be specific @ -No Did you speak to anyone other than the patient for history (EMS, parent, family, police, friend...)? What history was obtained from this source @ -No Did you review nursing and triage notes (agree or disagree)? Why? @ -I reviewed and agree with nursing and triage notes Were old charts reviewed (outside hosp., previous admission, EMS record, old EKG, old radiological studies, urgent care reports/EKG's, [facility] records)? Report findings @ -I reviewed previous charts as well as prior laboratory results and radiological studies Differential Diagnosis (chest pain, altered mental status, abdominal pain women, abdominal pain men, vaginal bleeding, weakness, fever, dyspnea, syncope, headache, dizziness, GI bleed, back pain, seizure, CVA, palpatations, mental health, musculoskeletal)? @ -Differential Abdominal Pain Women: Appendicitis, Cholecystitis, diverticulosis, ischemic bowel, pancreatitis, hepatitis, UTI, gastroenteritis, AAA, incarcerated hernia, bowel obstruction, constipation, inflammatory bowel, hepatitis, peptic ulcer disease, splenic infarction, perforated viscus, vulvitis, ovarian torsion, PID, kidney stone, placenta abruption, this is not meant to be an all-inclusive list EKG interpreted by me (3pts min.). @ -As above X-rays interpreted by me (1pt min.). @ -None done CT interpreted by me (1pt min.). @ -Computed tomography scan of the abdomen and pelvis was interpreted by myself is on no acute abnormality. U/S interpreted by me (1pt. min.). @ -None done What testing was considered but not performed or refused? (CT, X-rays, U/S, labs)? Why? @ -None What meds were considered but not given or refused? Why? @ -None Did you discuss the management of the patient with other professionals (professionals i.e. , PA, PRODUCER ARBORIST MANAGER, lab, RT, psych nurse, social worker palliative care, information technology director, teacher, principal gifts officer, nurse case management)? Give summary @ -I spoke with sounds physician's he agreed to admit the patient admitted the patient I wrote admitting orders Was smoking cessation discussed for >3mins.? @ -No Was critical care preformed (if so, how long)? @ -No Were there social determinants of health that impacted care today? How? (Homelessness, low income, unemployed, alcoholism, drug addiction, transportation, low edu. Level, literacy, decrease access to med. care, long term, rehab)? @ -No Was there de-escalation of care discussed even if they declined (Discuss DNR or withdrawal of care, Hospice)? DNR status @ -No What co-morbidities impacted this encounter? (DM, HTN, Smoking, COPD, CAD, Cancer, CVA, ARF, Chemo, Hep., AIDS, mental health diagnosis, sleep apnea, morbid obesity)? @ -None Was patient admitted / discharged? Hospital course, mention meds given and route, prescriptions, significant lab abnormalities, going to OR and other pertinent info. @ -Patient had significant abdominal pain CAT scan did not show any reason for the abdominal pain however patient is a 17,000 white count and a urine was sent. In the meantime I spoke with sounds physician's they did agree to admit the patient secondary to the patient's abdominal pain and kidney dysfunction which was new. Undiagnosed new problem with uncertain prognosis? @ -No Drug Therapy requiring intensive monitoring for toxicity (Heparin, Nitro, Insulin, Cardizem)? @ -No Were any procedures done? @ -No Diagnosis/symptom? @ -Abdominal pain Acute, or Chronic, or Acute on Chronic? @ -Acute Uncomplicated (without systemic symptoms) or Complicated (systemic symptoms)? @ -Uncomplicated Side effects of treatment? @ -No Exacerbation, Progression, or Severe Exacerbation? @ -No Poses a threat to life or bodily function? How? (Chest pain, [place], [place], pneumonia, PE, COPD, DKA, ARF, appy, cholecystitis, CVA, Diverticulitis, Homicidal, Suicidal, threat to staff... and all critical care pts) @ -No Diagnosis/symptom? @ -Acute renal failure Acute, or Chronic, or Acute on Chronic? @ -Acute Uncomplicated (without systemic symptoms) or Complicated (systemic symptoms)? @ -Complicated Side effects of treatment? @ -none Exacerbation, Progression, or Severe Exacerbation] @ -no Poses a threat to life or bodily function? @ -no Diagnosis/symptom? @ -Gastroenteritis Acute, or Chronic, or Acute on Chronic? @ -Acute Uncomplicated (without systemic symptoms) or Complicated (systemic symptoms)? @ -Complicated Side effects of treatment? @ -none Exacerbation, Progression, or Severe Exacerbation] @ -no Poses a threat to life or bodily function? @ -no - Lab Data Result diagrams: 10/02/22 13:22 10/02/22 13:22 Lab Results 10/02/22 10/02/22 10/02/22 Range/Units 13:22 13:22 13:22 WBC 17.2 H (3.8-10.6) k/uL RBC 3.97 (3.80-5.40) m/uL Hgb 12.6 (11.4-16.0) gm/dL Hct 38.8 (34.0-46.0) % MCV 97.8 (80.0-100.0) fL MCH 31.7 (25.0-35.0) pg MCHC 32.4 (31.0-37.0) g/dL RDW 13.3 (11.5-15.5) % Plt Count 211 (150-450) k/uL MPV 10.8 Neutrophils % (Manual) 69 % Band Neuts % (Manual) 17 % Lymphocytes % (Manual) 3 % Monocytes % (Manual) 11 % Metamyelocytes % 1 % Neutrophils # (Manual) 14.70 H (1.3-7.7) k/uL Lymphocytes # (Manual) 0.52 L (1.0-4.8) k/uL Monocytes # (Manual) 1.89 H (0-1.0) k/uL Metamyelocytes # (Man) 0.17 H (0) k/uL Nucleated RBCs 0 (0-0) /100 WBC Manual Slide Review Performed Sodium 135 L (137-145) mmol/L Potassium 5.3 H (3.5-5.1) mmol/L Chloride 100 (98-107) mmol/L Carbon Dioxide 23 (22-30) mmol/L Anion Gap 12 mmol/L BUN 61 H (7-17) mg/dL Creatinine 2.37 H (0.52-1.04) mg/dL Est GFR (CKD-EPI)AfAm 23 (>60 ml/min/1.73 sqM) Est GFR (CKD-EPI)NonAf 20 (>60 ml/min/1.73 sqM) Glucose 145 H (74-99) mg/dL Lactic Ac Sepsis Rflx Plasma Lactic Acid Johann 2.9 H* (0.7-2.0) mmol/L Calcium 8.0 L (8.4-10.2) mg/dL Total Bilirubin 0.7 (0.2-1.3) mg/dL AST 28 (14-36) U/L ALT 21 (4-34) U/L Alkaline Phosphatase 305 H (38-126) U/L Total Protein 6.0 L (6.3-8.2) g/dL Albumin 3.5 (3.5-5.0) g/dL Amylase 38 (30-110) U/L Lipase 18 L (23-300) U/L 10/02/22 Range/Units 14:17 WBC (3.8-10.6) k/uL RBC (3.80-5.40) m/uL Hgb (11.4-16.0) gm/dL Hct (34.0-46.0) % MCV (80.0-100.0) fL MCH (25.0-35.0) pg MCHC (31.0-37.0) g/dL RDW (11.5-15.5) % Plt Count (150-450) k/uL MPV Neutrophils % (Manual) % Band Neuts % (Manual) % Lymphocytes % (Manual) % Monocytes % (Manual) % Metamyelocytes % % Neutrophils # (Manual) (1.3-7.7) k/uL Lymphocytes # (Manual) (1.0-4.8) k/uL Monocytes # (Manual) (0-1.0) k/uL Metamyelocytes # (Man) (0) k/uL Nucleated RBCs (0-0) /100 WBC Manual Slide Review Sodium (137-145) mmol/L Potassium (3.5-5.1) mmol/L Chloride (98-107) mmol/L Carbon Dioxide (22-30) mmol/L Anion Gap mmol/L BUN (7-17) mg/dL Creatinine (0.52-1.04) mg/dL Est GFR (CKD-EPI)AfAm (>60 ml/min/1.73 sqM) Est GFR (CKD-EPI)NonAf (>60 ml/min/1.73 sqM) Glucose (74-99) mg/dL Lactic Ac Sepsis Rflx Y Plasma Lactic Acid Johann (0.7-2.0) mmol/L Calcium (8.4-10.2) mg/dL Total Bilirubin (0.2-1.3) mg/dL AST (14-36) U/L ALT (4-34) U/L Alkaline Phosphatase (38-126) U/L Total Protein (6.3-8.2) g/dL Albumin (3.5-5.0) g/dL Amylase (30-110) U/L Lipase (23-300) U/L Disposition Clinical Impression: Acute renal failure, Abdominal pain, Gastroenteritis Disposition: ADMITTED IP TO THIS [facility] Time of Disposition: 15:23
--- NOTE | 2022-10-02 13:30 | CT ---
EXAMINATION TYPE: CT abdomen pelvis wo con CT DLP: 414 mGycm, Automated exposure control for dose reduction was used. DATE OF EXAM: 10/02/2022 1:13 PM COMPARISON: None CLINICAL INDICATION:Female, 72 years old with history of abdominal pain; Abdominal pain TECHNIQUE: Axial CT of the abdomen and pelvis. Sagittal and coronal reformats were created on a [employer] workstation. Contrast used: None Oral contrast used: without Oral Contrast FINDINGS: LOWER CHEST: Unremarkable ABDOMEN LIVER: Unremarkable GALLBLADDER AND BILE DUCTS: The gallbladder is not definitively visualized. PANCREAS: Unremarkable. SPLEEN: Unremarkable. ADRENAL GLANDS: Unremarkable. KIDNEYS AND URETERS: No evidence of hydronephrosis or renal calculus. Right renal cysts. PELVIS BLADDER: Unremarkable REPRODUCTIVE: Uterus is not definitively visualized and is likely surgically absent or atrophic. ABDOMEN & PELVIS STOMACH AND BOWEL: Dilated loops of small bowel throughout the abdomen. There is large stool burden t hroughout the colon which becomes feces towards the distal descending colon sigmoid colon and rectum. There is a small hiatal hernia present. PERITONEUM/RETROPERITONEUM: No evidence of pneumoperitoneum or free fluid. VASCULATURE: No evidence of aortic aneurysm. Atherosclerosis of the arterial vasculature. Tortuosity to the intra-abdominal aorta. MUSCULOSKELETAL: No acute osseous abnormalities, scoliosis changes spine with degeneration with osteo phyte formation, Schmorl's nodes disc space narrowing, vacuum disc phenomenon. There is left hip arth roplasty which appears intact. LYMPH NODES: No gross evidence for lymphadenopathy. SOFT TISSUE/ABDOMINAL WALL: Unremarkable IMPRESSION: 1. No definitive evidence for acute abdominal process. 2. Large stool burden throughout the colon which is predominantly watery stool behind more formed st ool in the sigmoid colon and rectum. 3. Small hiatal hernia.
[2022-10-02 14:11] LABS: HCT 38.8 % (34.0-46.0); HGB 12.6 gm/dL (11.4-16.0); MCH 31.7 pg (25.0-35.0); MCHC 32.4 g/dL (31.0-37.0); MCV 97.8 fL (80.0-100.0); Mean Platelet Volume 10.8; Platelet Count 211 k/uL (150-450); RBC 3.97 m/uL (3.80-5.40); RDW 13.3 % (11.5-15.5); WBC 17.2 k/uL (3.8-10.6)
[2022-10-02 14:15] LABS: Albumin 3.5 g/dL (3.5-5.0); Potassium 5.3 mmol/L (3.5-5.1); Total Bilirubin 0.7 mg/dL (0.2-1.3)
[2022-10-02 15:23] LABS: Metamyelocytes # (M) 0.17 k/uL (0); Metamyelocytes % 1 %; Nucleated Red Blood Cells 0 /100 WBC (0-0)
[2022-10-02] MEDS ORDERED: SODIUM CHLORIDE 0.9% 1,000 ML IV ONE (15:24)
[2022-10-02 15:25] LABS: Band Neutrophils % 17 %; Lymphocytes # (M) 0.52 k/uL (1.0-4.8); Monocytes # (M) 1.89 k/uL (0-1.0); Neutrophils % (M) 69 %; Total Cells Counted 200
[2022-10-02] MEDS ORDERED: ONDANSETRON 4 MG/2 ML VIAL IVP PRN (15:27)
[2022-10-02 17:00] LABS: Amorphous Sediment,Urine Few /hpf; Appearance,Urine Cloudy (Clear); Bilirubin,Urine 1+ (Negative); Blood,Urine Negative (Negative); Color,Urine Dark Brown; Glucose,Urine (UA) Negative (Negative); Ketones,Urine Negative (Negative); Leukocyte Esterase,Urine Negative (Negative); Nitrite,Urine Negative (Negative); PH, Urine 5.5 (5.0-8.0); Protein,Urine 1+ (Negative); RBC,Urine <1 /hpf (0-5); Specific Gravity,Urine 1.027 (1.001-1.035); Squamous Epithelial Cell,Urine 1 /hpf (0-4); WBC,Urine 1 /hpf (0-5)
[2022-10-02] MEDS ORDERED: NALOXONE 0.4 MG/ML 1 ML VIAL IV PRN (17:31)
[2022-10-02] MEDS ORDERED: bisacodyL 5 MG TABLET.DR PO PRN (17:31)
[2022-10-02] MEDS ORDERED: MAGNESIUM HYDROXIDE 2,400 MG/10 ML CUP PO PRN (17:31)
[2022-10-02] MEDS ORDERED: MELATONIN 3 MG TABLET PO PRN (17:31)
[2022-10-02] MEDS ORDERED: KETOROLAC 15 MG/ML 1 ML VIAL IVP PRN (17:31)
[2022-10-02] MEDS ORDERED: DOCUSATE 100 MG CAP PO PRN (17:31)
--- NOTE | 2022-10-02 17:45 | P.HPIM ---
History of Present Illness H&P Date: 10/02/22 Patient is a 72-year-old female with PMH of hypertension, anxiety and history of migraines that presents the ED for abdominal pain. Patient reports being treated for UTI 1 week ago with a course of antibiotics. Patient reports abdominal pain that started yesterday. Pain is constant, sharp and stabbing in nature. Pain is 10 out of 10 in severity. Pain is located in bilateral lower quadrants. Pain is associated with nausea and vomiting. Patient reports her last bowel movement was on . She reports foul-smelling odor in her urine. She denies any headache, lower extremity edema, fever or chills, cough, chest pain, shortness breath, palpitations. No changes in appetite or weight. She denies any dizziness, numbness/weakness/tingling of extremities. In the ED, her vital signs were stable. CBC showed WBC count of 17.2. CMP showed sodium 135, potassium of 5.3, BUN of 61, creatinine of 2.37, glucose of 145, calcium of 8, alkaline phosphatase of 305, total protein of 6. Lipase was 18. Lactic acid was 2.9. Urinalysis was cloudy in appearance. CTAP shows large stool burden throughout the colon and small hiatal hernia. Patient is admitted for severe dehydration. Pertinent positives and negatives as discussed in HPI, a complete review of systems was performed and all other systems are negative. General: non toxic, no distress, appears at stated age Derm: warm, dry Head: atraumatic, normocephalic, symmetric Eyes: EOMI, no lid lag, anicteric sclera Mouth: no lip lesion, mucus membranes moist Cardiovascular: S1S2 reg, no murmur, positive posterior tibial pulse bilateral, Lungs: CTA bilateral, no rhonchi, no rales , no accessory muscle use Abdominal: soft, tenderness to palpation right and left lower quadrant without rebound, no guarding, no appreciable organomegaly Ext: no gross muscle atrophy, no edema, no contractures Neuro: no focal neuro deficits Psych: Alert, oriented, appropriate affect #Acute kidney injury #Lactic acidosis #Hyperkalemia #Abdominal pain #Constipation #Leukocytosis Chronic conditions: Hypertension, anxiety Based on my assessment of this patient, this patient meets a high complexity level of care. Patient has an acute diagnosis of acute kidney injury with lactic acidosis that poses a threat to life or bodily function. I have reviewed the following business risk consultant notes: I have reviewed the results of the following tests: CBC showed WBC count of 17.2. CMP showed sodium 135, potassium of 5.3, BUN of 61, creatinine of 2.37, glucose of 145, calcium of 8, alkaline phosphatase of 305, total protein of 6. Lipase was 18. Lactic acid was 2.9. Urinalysis was cloudy in appearance. CTAP shows large stool burden throughout the colon and small hiatal hernia. I have ordered the following tests: CBC and BMP ordered for tomorrow morning. I have discussed the care of this patient with the following independent historian: The case was discussed with the daughter at bedside. I have independently interpreted the following test below: EKG shows bradycardia with ventricular rate of 59. I have discussed the management of this patient with the following physician: Case was discussed with the ED physician to admit the patient for severe dehydration, acute kidney injury, lactic acidosis and constipation. This patient has a high risk of morbidity due to the following reasons: Patient has an acute diagnosis of acute kidney injury with lactic acidosis that poses a threat to life or bodily function. Patient be started on normal saline at 75 mL per hour. Monitor renal function with daily BMP. Repeat lactic acid until negative. Pain will be controlled with Toradol 15 mg IV every 6 hours as needed and morphine 2 mg IV every 4 hours as needed. Aggressive bowel regimen ordered including Dulcolax 5 mg by mouth daily as needed, docusate 100 mg by mouth twice a day as needed, milk of magnesia 2400 mg by mouth daily as needed for constipation. General surgery will be consulted for further management of this patient. Unknown source of infection with regard to leukocytosis. Urinalysis is negative. CTAP negative. Possibly reactive. Continue to monitor with daily CBC. Daughter is a surrogate POA. Patient would like to be no code. Past Medical History Past Medical History: Cancer, Hypertension, Osteoarthritis (OA), Sleep Apnea/CPAP/BIPAP, Thyroid Disorder Additional Past Medical History / Comment(s): C-PAP MACHINE , PAST HX OF HTN, SCOLIOSIS, BACK PAIN, SQUAMOUS CELL SKIN CANCER History of Any Multi-Drug Resistant Organisms: None Reported Past Surgical History: Back Surgery, Bladder Surgery, Hysterectomy, Joint Replacement Additional Past Surgical History / Comment(s): LEFT ELBOW FX, t12 fracture surgery on 5/20/22 Past Anesthesia/Blood Transfusion Reactions: Postoperative Nausea & Vomiting (PONV) Additional Past Anesthesia/Blood Transfusion Reaction / Comment(s): no problems with blood transfusions Past Psychological History: Anxiety, Depression Smoking Status: Former smoker Past Alcohol Use History: Occasional Past Drug Use History: Marijuana - Past Family History Brother(s) Family Medical History: Cancer Additional Family Medical History / Comment(s): PROSTATE CANCER, parkinsons Father Family Medical History: Myocardial Infarction ([place]) Additional Family Medical History / Comment(s): of [place] at 59 Mother Family Medical History: Congestive Heart Failure (CHF), Osteoarthritis (OA) Medications and Allergies Home Medications Medication Instructions Recorded Confirmed Type PARoxetine HCL [Paxil] 40 mg PO DAILY@1500 03/23/19 10/02/22 History buPROPion HCL [Wellbutrin XL] 300 mg PO DAILY@1500 03/23/19 10/02/22 History Rizatriptan Benzoate [Rizatriptan] 10 mg PO DAILY PRN 02/12/22 10/02/22 History atenoloL 25 mg PO DAILY@1500 10/02/22 10/02/22 History Allergies Allergy/AdvReac Type Severity Reaction Status Date / Time erythromycin base AdvReac Unknown Abdominal Verified 10/02/22 16:18 Pain Physical Exam Vitals: Vital Signs Temp Pulse Resp BP Pulse Ox 10/02/22 15:54 57 L 18 93/77 94 L 10/02/22 12:07 97.9 F 66 18 110/71 94 L Intake and Output 10/02/22 10/02/22 10/02/22 06:59 14:59 22:59 Other: Weight 58.967 kg Results CBC & Chem 7: 10/02/22 13:22 10/02/22 13:22 Labs: Abnormal Lab Results - Last 24 Hours (Table) 10/02/22 10/02/22 10/02/22 Range/Units 13:22 13:22 13:22 WBC 17.2 H (3.8-10.6) k/uL Neutrophils # (Manual) 14.70 H (1.3-7.7) k/uL Lymphocytes # (Manual) 0.52 L (1.0-4.8) k/uL Monocytes # (Manual) 1.89 H (0-1.0) k/uL Metamyelocytes # (Man) 0.17 H (0) k/uL Sodium 135 L (137-145) mmol/L Potassium 5.3 H (3.5-5.1) mmol/L BUN 61 H (7-17) mg/dL Creatinine 2.37 H (0.52-1.04) mg/dL Glucose 145 H (74-99) mg/dL Plasma Lactic Acid Johann 2.9 H* (0.7-2.0) mmol/L Calcium 8.0 L (8.4-10.2) mg/dL Alkaline Phosphatase 305 H (38-126) U/L Total Protein 6.0 L (6.3-8.2) g/dL Lipase 18 L (23-300) U/L Urine Appearance (Clear) Urine Protein (Negative) Urine Bilirubin (Negative) Amorphous Sediment (None) /hpf 10/02/22 Range/Units 15:51 WBC (3.8-10.6) k/uL Neutrophils # (Manual) (1.3-7.7) k/uL Lymphocytes # (Manual) (1.0-4.8) k/uL Monocytes # (Manual) (0-1.0) k/uL Metamyelocytes # (Man) (0) k/uL Sodium (137-145) mmol/L Potassium (3.5-5.1) mmol/L BUN (7-17) mg/dL Creatinine (0.52-1.04) mg/dL Glucose (74-99) mg/dL Plasma Lactic Acid Johann (0.7-2.0) mmol/L Calcium (8.4-10.2) mg/dL Alkaline Phosphatase (38-126) U/L Total Protein (6.3-8.2) g/dL Lipase (23-300) U/L Urine Appearance Cloudy H (Clear) Urine Protein 1+ H (Negative) Urine Bilirubin 1+ H (Negative) Amorphous Sediment Few H (None) /hpf
[2022-10-02] MEDS: MORPHINE SULFATE 2 MG/ML SYRINGE IVP PRN ×2 (19:07→23:13)
[2022-10-02] MEDS: HEPARIN SODIUM,PORCINE/PF 5,000 UNIT/0.5 ML SYRINGE SQ SCH (21:27)
[2022-10-03] MEDS: HEPARIN SODIUM,PORCINE/PF 5,000 UNIT/0.5 ML SYRINGE SQ SCH ×2 (08:07→21:05)
[2022-10-03 09:02] LABS: HCT 34.6 % (34.0-46.0); HGB 11.2 gm/dL (11.4-16.0); MCH 32.4 pg (25.0-35.0); MCHC 32.5 g/dL (31.0-37.0); MCV 99.7 fL (80.0-100.0); Mean Platelet Volume 11.8; Platelet Count 228 k/uL (150-450); RBC 3.47 m/uL (3.80-5.40); RDW 13.3 % (11.5-15.5); WBC 11.9 k/uL (3.8-10.6)
[2022-10-03] MEDS: MORPHINE SULFATE 2 MG/ML SYRINGE IVP PRN (09:10)
[2022-10-03 09:34] LABS: Anion Gap 13.5 mmol/L (10.00-18.00); BUN/Creat Ratio 28.94 Ratio (12.00-20.00); Blood Urea Nitrogen 65.4 mg/dL (9.0-27.0); Calcium 7.6 mg/dL (8.7-10.3); Carbon Dioxide 18.9 mmol/L (20.0-27.5); Non-African American GFR(CKD) 20.7 (60.0-200.0); Potassium 5.2 mmol/L (3.5-5.5)
--- NOTE | 2022-10-03 09:35 | P.PN ---
Subjective Progress Note Date: 10/03/22 Patient is a 72-year-old female with PMH of hypertension, anxiety and history of migraines that presents the ED for abdominal pain. Patient reports being treated for UTI 1 week ago with a course of antibiotics. Patient reports abdominal pain that started yesterday. Pain is constant, sharp and stabbing in nature. Pain is 10 out of 10 in severity. Pain is located in bilateral lower quadrants. Pain is associated with nausea and vomiting. Patient reports her last bowel movement was on . She reports foul-smelling odor in her urine. She denies any headache, lower extremity edema, fever or chills, cough, chest pain, shortness breath, palpitations. No changes in appetite or weight. She denies any dizziness, numbness/weakness/tingling of extremities. In the ED, her vital signs were stable. CBC showed WBC count of 17.2. CMP showed sodium 135, potassium of 5.3, BUN of 61, creatinine of 2.37, glucose of 145, calcium of 8, alkaline phosphatase of 305, total protein of 6. Lipase was 18. Lactic acid was 2.9. Urinalysis was cloudy in appearance. CTAP shows large stool burden throughout the colon and small hiatal hernia. Patient is admitted for severe dehydration. Patient was seen and examined. No acute events overnight. Patient reports 10 out of 10 severity lower abdominal pain. Pain is similar to the pain she expressed at home. No nausea or vomiting. No fever or chills. General: non toxic, moderate distress, appears at stated age Derm: warm, dry Head: atraumatic, normocephalic, symmetric Eyes: EOMI, no lid lag, anicteric sclera Mouth: no lip lesion, mucus membranes moist Cardiovascular: S1S2 reg, no murmur, positive posterior tibial pulse bilateral, Lungs: CTA bilateral, no rhonchi, no rales , no accessory muscle use Abdominal: soft, tenderness to palpation right and left lower quadrant without rebound, no guarding, no appreciable organomegaly Ext: no gross muscle atrophy, no edema, no contractures Neuro: no focal neuro deficits Psych: Alert, oriented, appropriate affect #Acute kidney injury #Hyperkalemia #Abdominal pain #Constipation #Leukocytosis Resolved: Lactic acidosis Chronic conditions: Hypertension, anxiety Based on my assessment of this patient, this patient meets a high complexity level of care. Patient has an acute diagnosis of acute kidney injury with lactic acidosis that poses a threat to life or bodily function. I have reviewed the following research consultant notes: I have reviewed the results of the following tests: CBC showed WBC count 11.9. This is improved from 17.2 on admission. Repeat lactic acid 1.4. I have ordered the following tests: CBC and BMP ordered for tomorrow morning. BMP ordered for this morning is still pending. I have discussed the care of this patient with the following independent historian: The case was discussed with nursing as patient has mild confusion. Apparently patient lives at home alone, both of her daughters live out of town. I have independently interpreted the following test below: None. I have discussed the management of this patient with the following physician: None. This patient has a high risk of morbidity due to the following reasons: Patient has an acute diagnosis of acute kidney injury with lactic acidosis that poses a threat to life or bodily function. Patient be started on normal saline at 75 mL per hour. Monitor renal function with daily BMP. Patient will be continued on morphine 2 mg IV every 4 hours as needed for severe pain. Aggressive bowel regimen ordered including Dulcolax 5 mg by mouth daily as needed, docusate 100 mg by mouth twice a day as needed, milk of magnesia 2400 mg by mouth daily as needed for constipation. General surgery will be consultation pending. Keep patient NPO for now. Unknown source of infection with regard to leukocytosis. Urinalysis is negative. CTAP negative. Possibly reactive. Continue to monitor with daily CBC. PT and OT consulted to work with this patient as she lives alone. Daughter is a surrogate POA. Patient would like to be no code. Objective - Vital Signs Vital signs: Vital Signs Temp 97.5 F L 10/03/22 07:33 Pulse 67 10/03/22 07:33 Resp 17 10/03/22 07:33 BP 106/69 10/03/22 07:33 Pulse Ox 92 L 10/03/22 07:33 FiO2 Intake & Output 10/02/22 10/03/22 10/03/22 18:59 06:59 18:59 Weight 58.967 kg 58.967 kg Other: # Voids 1 - Labs CBC & Chem 7: 10/03/22 05:15 10/02/22 13:22 Labs: Abnormal Lab Results - Last 24 Hours (Table) 10/02/22 10/02/22 10/02/22 Range/Units 13:22 13:22 13:22 WBC 17.2 H (3.8-10.6) k/uL RBC (3.80-5.40) m/uL Hgb (11.4-16.0) gm/dL Neutrophils # (Manual) 14.70 H (1.3-7.7) k/uL Lymphocytes # (Manual) 0.52 L (1.0-4.8) k/uL Monocytes # (Manual) 1.89 H (0-1.0) k/uL Metamyelocytes # (Man) 0.17 H (0) k/uL Sodium 135 L (137-145) mmol/L Potassium 5.3 H (3.5-5.1) mmol/L BUN 61 H (7-17) mg/dL Creatinine 2.37 H (0.52-1.04) mg/dL Glucose 145 H (74-99) mg/dL Plasma Lactic Acid Johann 2.9 H* (0.7-2.0) mmol/L Calcium 8.0 L (8.4-10.2) mg/dL Alkaline Phosphatase 305 H (38-126) U/L Total Protein 6.0 L (6.3-8.2) g/dL Lipase 18 L (23-300) U/L Urine Appearance (Clear) Urine Protein (Negative) Urine Bilirubin (Negative) Amorphous Sediment (None) /hpf 10/02/22 10/03/22 Range/Units 15:51 05:15 WBC 11.9 H (3.8-10.6) k/uL RBC 3.47 L (3.80-5.40) m/uL Hgb 11.2 L (11.4-16.0) gm/dL Neutrophils # (Manual) (1.3-7.7) k/uL Lymphocytes # (Manual) (1.0-4.8) k/uL Monocytes # (Manual) (0-1.0) k/uL Metamyelocytes # (Man) (0) k/uL Sodium (137-145) mmol/L Potassium (3.5-5.1) mmol/L BUN (7-17) mg/dL Creatinine (0.52-1.04) mg/dL Glucose (74-99) mg/dL Plasma Lactic Acid Johann (0.7-2.0) mmol/L Calcium (8.4-10.2) mg/dL Alkaline Phosphatase (38-126) U/L Total Protein (6.3-8.2) g/dL Lipase (23-300) U/L Urine Appearance Cloudy H (Clear) Urine Protein 1+ H (Negative) Urine Bilirubin 1+ H (Negative) Amorphous Sediment Few H (None) /hpf
--- NOTE | 2022-10-03 11:25 | P.GSCN ---
History of Present Illness Consult date: 10/03/22 History of present illness: CHIEF COMPLAINT: Abdominal pain HISTORY OF PRESENT ILLNESS: This 72-year-old female presented with left-sided abdominal pain for about 3 days. She does report occasional nausea. She has been having liquidy stools. She does report being on NSAIDs at home. Computed tomography scan shows no definite acute process. Large stool burden throughout the colon which is predominantly watery stool behind more formed stool in the sigmoid colon and rectum. Patient denies any fever chills or sweats. Last colonoscopy was in 2019 and had shown a normal colon. Surgical service consulted for constipation. Patient also admitted with acute kidney injury. Patient seen and examined with Dr. smith PAST MEDICAL HISTORY: See below PAST SURGICAL HISTORY: See below MEDICATIONS: See below ALLERGIES: See below SOCIAL HISTORY: No illicit drug use. REVIEW OF SYSTEMS: CONSTITUTIONAL: Denies fever or chills. HEENT: Denies blurred vision, vision changes, or eye pain. Denies hemoptysis CARDIOVASCULAR: Denies chest pain or pressure. RESPIRATORY: No shortness of breath. GASTROINTESTINAL: See HPI for pertinent findings HEMATOLOGIC: Denies bleeding disorders. GENITOURINARY: Denies any blood in urine or increased urinary frequency. SKIN: Denies pruitis. Denies rash. PHYSICAL EXAM: VITAL SIGNS: Reviewed GENERAL: Well-developed in no acute distress. HEENT: No sclera icterus. Extraocular movements grossly intact. Moist buccal mucosa. Head is atraumatic, normocephalic. No nasal drainage. ABDOMEN: Soft. Nondistended. Diffuse tenderness with more tenderness noted in left lower quadrant NEUROLOGIC: Alert and oriented. Cranial nerves II through XII grossly intact. LABORATORY DATA: WBC is 17.2 down to 11.9 hemoglobin 11.2 platelets 228 Sodium 138 potassium 5.2 creatinine 2.3 Total bili 0.7 AST 28 ALT 21 alk phos 35 lipase 18 Lactic acid 2.9 down to 1.4 IMAGING: Computed tomography scan no definitive evidence of acute abdominal process. Large stool burden throughout the colon which is predominantly watery stool b ehind more formed stool in the sigmoid colon and rectum. Small hiatal hernia ASSESSMENT: 1. Constipation with evidence of large stool burden noted on CAT scan 2. Acute kidney injury 3. Leukocytosis improving 4. Lactic acidosis improved PLAN: -Soapsuds enemas ordered x3 or until clear and Lactulose -Okay for clear liquid diet -Continue IV fluid -Continue supportive care Thank you for this consultation Physician Gender Studies Professor note has been reviewed by physician. Signing provider agrees with the documented findings, assessment, and plan of care. Past Medical History Past Medical History: Cancer, Hypertension, Osteoarthritis (OA), Sleep Apnea/CPAP/BIPAP, Thyroid Disorder Additional Past Medical History / Comment(s): C-PAP MACHINE , PAST HX OF HTN, SCOLIOSIS, BACK PAIN, SQUAMOUS CELL SKIN CANCER, Raynauds, back fracture History of Any Multi-Drug Resistant Organisms: None Reported Past Surgical History: Back Surgery, Bladder Surgery, Hysterectomy, Joint Replacement Additional Past Surgical History / Comment(s): LEFT ELBOW FX, t12 fracture ashlyn kayleigh on 12/21/21, left hip replaced Past Anesthesia/Blood Transfusion Reactions: Postoperative Nausea & Vomiting (PONV) Additional Past Anesthesia/Blood Transfusion Reaction / Comm: no problems with blood transfusions Past Psychological History: Anxiety, Depression Smoking Status: Former smoker Past Alcohol Use History: Occasional Additional Past Alcohol Use History / Comment(s): SMOKED 1 YEAR IN HER LATE 'S Past Drug Use History: Marijuana Additional Drug Use History / Comment(s): occastional maijuana use, last time being in late december/early january 2022. - Past Family History Brother(s) Family Medical History: Cancer Additional Family Medical History / Comment(s): PROSTATE CANCER, parkinsons Father Family Medical History: Myocardial Infarction ([place]) Additional Family Medical History / Comment(s): of [place] at 59 Mother Family Medical History: Congestive Heart Failure (CHF), Osteoarthritis (OA) Medications and Allergies Home Medications Medication Instructions Recorded Confirmed Type PARoxetine HCL [Paxil] 40 mg PO DAILY@1500 03/23/19 10/02/22 History buPROPion HCL [Wellbutrin XL] 300 mg PO DAILY@1500 03/23/19 10/02/22 History Rizatriptan Benzoate [Rizatriptan] 10 mg PO DAILY PRN 02/12/22 10/02/22 History atenoloL 25 mg PO DAILY@1500 10/02/22 10/02/22 History Allergies Allergy/AdvReac Type Severity Reaction Status Date / Time erythromycin base AdvReac Unknown Abdominal Verified 10/02/22 16:18 Pain Surgical - Exam Vital Signs Temp Pulse Resp BP Pulse Ox 97.9 F 66 18 110/71 94 L 10/02/22 12:07 10/02/22 12:07 10/02/22 12:07 10/02/22 12:07 10/02/22 12:07 Results - Labs 10/03/22 05:15 10/03/22 05:15 Abnormal Lab Results - Last 24 Hours (Table) 10/02/22 10/02/22 10/02/22 Range/Units 13:22 13:22 13:22 WBC 17.2 H (3.8-10.6) k/uL RBC (3.80-5.40) m/uL Hgb (11.4-16.0) gm/dL Neutrophils # (Manual) 14.70 H (1.3-7.7) k/uL Lymphocytes # (Manual) 0.52 L (1.0-4.8) k/uL Monocytes # (Manual) 1.89 H (0-1.0) k/uL Metamyelocytes # (Man) 0.17 H (0) k/uL Sodium 135 L (137-145) mmol/L Potassium 5.3 H (3.5-5.1) mmol/L Carbon Dioxide (20.0-27.5) mmol/L BUN 61 H (7-17) mg/dL Creatinine 2.37 H (0.52-1.04) mg/dL Est GFR (CKD-EPI)AfAm (60.0-200.0) Est GFR (CKD-EPI)NonAf (60.0-200.0) BUN/Creatinine Ratio (12.00-20.00) Ratio Glucose 145 H (74-99) mg/dL Plasma Lactic Acid Johann 2.9 H* (0.7-2.0) mmol/L Calcium 8.0 L (8.4-10.2) mg/dL Alkaline Phosphatase 305 H (38-126) U/L Total Protein 6.0 L (6.3-8.2) g/dL Lipase 18 L (23-300) U/L Urine Appearance (Clear) Urine Protein (Negative) Urine Bilirubin (Negative) Amorphous Sediment (None) /hpf 10/02/22 10/03/22 10/03/22 Range/Units 15:51 05:15 05:15 WBC 11.9 H (3.8-10.6) k/uL RBC 3.47 L (3.80-5.40) m/uL Hgb 11.2 L (11.4-16.0) gm/dL Neutrophils # (Manual) (1.3-7.7) k/uL Lymphocytes # (Manual) (1.0-4.8) k/uL Monocytes # (Manual) (0-1.0) k/uL Metamyelocytes # (Man) (0) k/uL Sodium (137-145) mmol/L Potassium (3.5-5.1) mmol/L Carbon Dioxide 18.9 L (20.0-27.5) mmol/L BUN 65.4 H (7-17) mg/dL Creatinine 2.3 H (0.52-1.04) mg/dL Est GFR (CKD-EPI)AfAm 24.0 L (60.0-200.0) Est GFR (CKD-EPI)NonAf 20.7 L (60.0-200.0) BUN/Creatinine Ratio 28.94 H (12.00-20.00) Ratio Glucose (74-99) mg/dL Plasma Lactic Acid Johann (0.7-2.0) mmol/L Calcium 7.6 L (8.4-10.2) mg/dL Alkaline Phosphatase (38-126) U/L Total Protein (6.3-8.2) g/dL Lipase (23-300) U/L Urine Appearance Cloudy H (Clear) Urine Protein 1+ H (Negative) Urine Bilirubin 1+ H (Negative) Amorphous Sediment Few H (None) /hpf Diabetes panel 10/02/22 10/03/22 Range/Units 13:22 05:15 Sodium 135 L 138 (137-145) mmol/L Potassium 5.3 H 5.2 (3.5-5.1) mmol/L Chloride 100 105 (98-107) mmol/L Carbon Dioxide 23 18.9 L (22-30) mmol/L BUN 61 H 65.4 H (7-17) mg/dL Creatinine 2.37 H 2.3 H (0.52-1.04) mg/dL Glucose 145 H 97 (74-99) mg/dL Calcium 8.0 L 7.6 L (8.4-10.2) mg/dL AST 28 (14-36) U/L ALT 21 (4-34) U/L Alkaline Phosphatase 305 H (38-126) U/L Total Protein 6.0 L (6.3-8.2) g/dL Albumin 3.5 (3.5-5.0) g/dL Calcium panel 10/02/22 10/03/22 Range/Units 13:22 05:15 Calcium 8.0 L 7.6 L (8.4-10.2) mg/dL Albumin 3.5 (3.5-5.0) g/dL Pituitary panel 10/02/22 10/03/22 Range/Units 13:22 05:15 Sodium 135 L 138 (137-145) mmol/L Potassium 5.3 H 5.2 (3.5-5.1) mmol/L Chloride 100 105 (98-107) mmol/L Carbon Dioxide 23 18.9 L (22-30) mmol/L BUN 61 H 65.4 H (7-17) mg/dL Creatinine 2.37 H 2.3 H (0.52-1.04) mg/dL Glucose 145 H 97 (74-99) mg/dL Calcium 8.0 L 7.6 L (8.4-10.2) mg/dL Adrenal panel 10/02/22 10/03/22 Range/Units 13:22 05:15 Sodium 135 L 138 (137-145) mmol/L Potassium 5.3 H 5.2 (3.5-5.1) mmol/L Chloride 100 105 (98-107) mmol/L Carbon Dioxide 23 18.9 L (22-30) mmol/L BUN 61 H 65.4 H (7-17) mg/dL Creatinine 2.37 H 2.3 H (0.52-1.04) mg/dL Glucose 145 H 97 (74-99) mg/dL Calcium 8.0 L 7.6 L (8.4-10.2) mg/dL Total Bilirubin 0.7 (0.2-1.3) mg/dL AST 28 (14-36) U/L ALT 21 (4-34) U/L Alkaline Phosphatase 305 H (38-126) U/L Total Protein 6.0 L (6.3-8.2) g/dL Albumin 3.5 (3.5-5.0) g/dL
[2022-10-03] MEDS: LACTULOSE 20 GM/30 ML CUP PO SCH ×3 (13:44→16:19)
[2022-10-03] MEDS: PARoxetine 20 MG TAB PO SCH (15:08)
[2022-10-03] MEDS: buPROPion XL 300 MG TAB.ER.24H PO SCH (15:08)
[2022-10-03] MEDS: atenoloL 25 MG TAB PO SCH (15:08)
[2022-10-04] MEDS: HEPARIN SODIUM,PORCINE/PF 5,000 UNIT/0.5 ML SYRINGE SQ SCH ×2 (08:21→19:25)
[2022-10-04 10:30] LABS: African American GFR (CKD) 39.4 (60.0-200.0); Anion Gap 13.9 mmol/L (10.00-18.00); BUN/Creat Ratio 34.93 Ratio (12.00-20.00); Blood Urea Nitrogen 52.4 mg/dL (9.0-27.0); Calcium 8.3 mg/dL (8.7-10.3); Carbon Dioxide 18.1 mmol/L (20.0-27.5)
[2022-10-04 10:44] LABS: Basophils # (A) 0.06 X 10*3/uL (0.00-0.10); Basophils % (A) 0.6 %; Eosinophils # (A) 0 X 10*3/uL (0.04-0.35); Eosinophils % (A) 0 %; HCT 32.5 % (37.2-46.3); HGB 10.1 g/dL (12.0-15.0); Immature Grans, Automated 0.3 %; Lymphocytes # (A) 0.32 X 10*3/uL (0.90-5.00); Lymphocytes % (A) 3.2 %; MCH 31.1 pg (27.0-32.0); MCHC 31.1 g/dL (32.0-37.0); Mean Platelet Volume 12.5 fL (9.5-12.2); Monocytes # (A) 1.12 X 10*3/uL (0.20-1.00); Monocytes % (A) 11.1 %; NRBC Per 100 WBC 0 /100 WBCS (0.0-0.0); Neutrophils # (A) 8.53 X 10*3/uL (1.80-7.70); Neutrophils % (A) 84.8 %; Platelet Count 187 X 10*3/uL (140-440); RBC 3.25 X 10*6/uL (4.10-5.20); RDW 14.1 % (11.5-14.5); WBC 10.06 X 10*3/uL (4.50-10.00)
--- NOTE | 2022-10-04 11:31 | P.PN ---
Subjective Progress Note Date: 10/04/22 CHIEF COMPLAINT: Constipation HISTORY OF PRESENT ILLNESS: Surgical service following regards to patient's patient. She had 6 bowel movements yesterday after soapsuds enemas and lactulose. Nursing staff did report some performed pieces of stool and liquidy stool were expelled with the enema. Patient reports that she is feeling better. She denies any abdominal pain. Denies any nausea or vomiting. Afebrile. WBC trending downwards from 11.9-10.6 Hgb 10.1 platelets 187 sodium is 144 potassium 4.0 creatinine has normalized from 2.3-1.5. They're working on ECF placement at time of discharge PHYSICAL EXAM: VITAL SIGNS: Reviewed. GENERAL: Well-developed in no acute distress. HEENT: No sclera icterus. Extraocular movements grossly intact. Moist buccal mucosa. Head is atraumatic, normocephalic. ABDOMEN: Soft. Nondistended. Nontender. NEUROLOGIC: Alert and oriented. Cranial nerves II through XII grossly intact. ASSESSMENT: 1. Constipation with evidence of large stool burden. Improving 2. Acute kidney injury 3. Leukocytosis improving 4. Lactic acidosis improved PLAN: -Advance diet to full liquid -Continue a good bowel regimen -Colace changed to scheduled BID. MiraLAX added daily -Encouraged patient to increase activity level Physician Property Administrator note has been reviewed by physician. Signing provider agrees with the documented findings, assessment, and plan of care. Objective - Vital Signs Vital signs: Vital Signs Temp 99.3 F 10/04/22 08:00 Pulse 78 10/04/22 08:21 Resp 19 10/04/22 08:21 BP 171/92 10/04/22 08:00 Pulse Ox 89 L 10/04/22 08:00 FiO2 Intake & Output 10/03/22 10/04/22 10/04/22 18:59 06:59 18:59 Other: # Voids 4 # Bowel Movements 6 - Labs CBC & Chem 7: 10/04/22 05:11 10/04/22 05:11 Labs: Abnormal Lab Results - Last 24 Hours (Table) 10/04/22 10/04/22 Range/Units 05:11 05:11 WBC 10.06 H (4.50-10.00) X 10*3/uL RBC 3.25 L (4.10-5.20) X 10*6/uL Hgb 10.1 L (12.0-15.0) g/dL Hct 32.5 L (37.2-46.3) % MCV 100.0 H (80.0-97.0) fL MCHC 31.1 L (32.0-37.0) g/dL MPV 12.5 H (9.5-12.2) fL Neutrophils # 8.53 H (1.80-7.70) X 10*3/uL Lymphocytes # 0.32 L (0.90-5.00) X 10*3/uL Monocytes # 1.12 H (0.20-1.00) X 10*3/uL Eosinophils # 0 L (0.04-0.35) X 10*3/uL Chloride 112 H (96-109) mmol/L Carbon Dioxide 18.1 L (20.0-27.5) mmol/L BUN 52.4 H (9.0-27.0) mg/dL Est GFR (CKD-EPI)AfAm 39.4 L (60.0-200.0) Est GFR (CKD-EPI)NonAf 34.0 L (60.0-200.0) BUN/Creatinine Ratio 34.93 H (12.00-20.00) Ratio Glucose 127 H (70-110) mg/dL Calcium 8.3 L (8.7-10.3) mg/dL
--- NOTE | 2022-10-04 14:36 | P.PN ---
Subjective Progress Note Date: 10/04/22 Patient is a 72-year-old female with PMH of hypertension, anxiety and history of migraines that presents the ED for abdominal pain. Patient reports being treated for UTI 1 week ago with a course of antibiotics. Patient reports abdominal pain that started yesterday. Pain is constant, sharp and stabbing in nature. Pain is 10 out of 10 in severity. Pain is located in bilateral lower quadrants. Pain is associated with nausea and vomiting. Patient reports her last bowel movement was on . She reports foul-smelling odor in her urine. She denies any headache, lower extremity edema, fever or chills, cough, chest pain, shortness breath, palpitations. No changes in appetite or weight. She denies any dizziness, numbness/weakness/tingling of extremities. In the ED, her vital signs were stable. CBC showed WBC count of 17.2. CMP showed sodium 135, potassium of 5.3, BUN of 61, creatinine of 2.37, glucose of 145, calcium of 8, alkaline phosphatase of 305, total protein of 6. Lipase was 18. Lactic acid was 2.9. Urinalysis was cloudy in appearance. CTAP shows large stool burden throughout the colon and small hiatal hernia. Patient is admitted for severe dehydration. Patient was seen and examined. No acute events overnight. Patient reports well-controlled abdominal pain. She had multiple bowel movements after being started on enemas yesterday. She reports profound weakness and feels unsafe going home on discharge since she lives alone. General: non toxic, moderate distress, appears at stated age Derm: warm, dry Head: atraumatic, normocephalic, symmetric Eyes: EOMI, no lid lag, anicteric sclera Mouth: no lip lesion, mucus membranes moist Cardiovascular: S1S2 reg, no murmur, positive posterior tibial pulse bilateral, Lungs: CTA bilateral, no rhonchi, no rales , no accessory muscle use Abdominal: soft, tenderness to palpation right and left lower quadrant without rebound, no guarding, no appreciable organomegaly Ext: no gross muscle atrophy, no edema, no contractures Neuro: no focal neuro deficits Psych: Alert, oriented, appropriate affect #Prerenal azotemia #Abdominal pain #Constipation #Leukocytosis Resolved: Lactic acidosis, hyperkalemia Chronic conditions: Hypertension, anxiety Based on my assessment of this patient, this patient meets a moderate complexity level of care. Patient has an acute diagnosis of acute kidney injury with lactic acidosis that poses a threat to life or bodily function. I have reviewed the following home service consultant notes: Surgery note reviewed from 10/04, advance diet to full liquid, continue bowel regimen, Colace scheduled twice a day, MiraLAX daily. I have reviewed the results of the following tests: CBC showed WBC count 10.06. This is improved from 17.2 on admission. Her hemoglobin is 10.1. BMP shows chloride of 112, bicarb of 18.1, BUN of 52.4, GFR 34, glucose 127, calcium of 8.3. I have ordered the following tests: CBC and BMP ordered for tomorrow morning. I have discussed the care of this patient with the following independent historian: None. I have independently interpreted the following test below: None. I have discussed the management of this patient with the following physician: None. This patient has a moderate risk of morbidity due to the following reasons: Patient has an acute diagnosis of acute kidney injury with lactic acidosis that poses a threat to life or bodily function. Her lactic acidosis has resolved. Her renal function is slowly improving. She'll be continued on normal saline at 75 mL per hour. Patient will be continued on morphine 2 mg IV every 4 hours as needed for severe pain. Aggressive bowel regimen ordered including Dulcolax 5 mg by mouth daily as needed, docusate 100 mg by mouth twice a day, MiraLAX 17 g by mouth daily, milk of magnesia 2400 mg by mouth daily as needed for constipation. General surgery on board. Full liquid diet and advance as tolerated. Unknown source of infection with regard to leukocytosis. Urinalysis is negative. CTAP negative. Possibly reactive. Continue to monitor with daily CBC. PT and OT consulted to work with this patient as she lives alone. Case was discussed with case management, plans for SNF on discharge. Referral placed for [facility]. Daughter is a surrogate POA. Patient would like to be no code. Objective - Vital Signs Vital signs: Vital Signs Temp 99.3 F 10/04/22 08:00 Pulse 78 10/04/22 08:21 Resp 19 10/04/22 08:21 BP 171/92 10/04/22 08:00 Pulse Ox 89 L 10/04/22 08:00 FiO2 Intake & Output 10/03/22 10/04/22 10/04/22 18:59 06:59 18:59 Other: # Voids 4 # Bowel Movements 6 - Labs CBC & Chem 7: 10/04/22 05:11 10/04/22 05:11 Labs: Abnormal Lab Results - Last 24 Hours (Table) 10/04/22 10/04/22 Range/Units 05:11 05:11 WBC 10.06 H (4.50-10.00) X 10*3/uL RBC 3.25 L (4.10-5.20) X 10*6/uL Hgb 10.1 L (12.0-15.0) g/dL Hct 32.5 L (37.2-46.3) % MCV 100.0 H (80.0-97.0) fL MCHC 31.1 L (32.0-37.0) g/dL MPV 12.5 H (9.5-12.2) fL Neutrophils # 8.53 H (1.80-7.70) X 10*3/uL Lymphocytes # 0.32 L (0.90-5.00) X 10*3/uL Monocytes # 1.12 H (0.20-1.00) X 10*3/uL Eosinophils # 0 L (0.04-0.35) X 10*3/uL Chloride 112 H (96-109) mmol/L Carbon Dioxide 18.1 L (20.0-27.5) mmol/L BUN 52.4 H (9.0-27.0) mg/dL Est GFR (CKD-EPI)AfAm 39.4 L (60.0-200.0) Est GFR (CKD-EPI)NonAf 34.0 L (60.0-200.0) BUN/Creatinine Ratio 34.93 H (12.00-20.00) Ratio Glucose 127 H (70-110) mg/dL Calcium 8.3 L (8.7-10.3) mg/dL
[2022-10-04] MEDS: PARoxetine 20 MG TAB PO SCH (15:32)
[2022-10-04] MEDS: atenoloL 25 MG TAB PO SCH (15:32)
[2022-10-04] MEDS: buPROPion XL 300 MG TAB.ER.24H PO SCH (15:32)
[2022-10-04] MEDS: DOCUSATE 100 MG CAP PO SCH (19:25)
[2022-10-05] MEDS: HEPARIN SODIUM,PORCINE/PF 5,000 UNIT/0.5 ML SYRINGE SQ SCH ×2 (07:14→21:24)
[2022-10-05] MEDS: DOCUSATE 100 MG CAP PO SCH ×2 (07:15→21:24)
[2022-10-05] MEDS: polyethylene glycoL 3350 17 GM POWD.PACK PO SCH (07:15)
[2022-10-05] MEDS: SODIUM CHLORIDE 0.9% 1,000 ML IV SCH ×5 (07:18→15:35)
--- NOTE | 2022-10-05 10:34 | P.PN ---
Progress Note - Text Progress Note Date: 10/05/22 Patient's PEG tube site is clean. She will start tube feeds today.
--- NOTE | 2022-10-05 10:42 | P.PN ---
Progress Note - Text Progress Note Date: 10/05/22 The patient still has some complaints of some mild abdominal pain. She is tolerating full liquid diet. She has had bowel movements. On exam vessels are still. Abdomen soft. Resolving constipation. Patient to receive supportive care.
--- NOTE | 2022-10-05 12:42 | P.PN ---
Subjective Progress Note Date: 10/05/22 Patient is a 72-year-old female with PMH of hypertension, anxiety and history of migraines that presents the ED for abdominal pain. Patient reports being treated for UTI 1 week ago with a course of antibiotics. Patient reports abdominal pain that started yesterday. Pain is constant, sharp and stabbing in nature. Pain is 10 out of 10 in severity. Pain is located in bilateral lower quadrants. Pain is associated with nausea and vomiting. Patient reports her last bowel movement was on . She reports foul-smelling odor in her urine. She denies any headache, lower extremity edema, fever or chills, cough, chest pain, shortness breath, palpitations. No changes in appetite or weight. She denies any dizziness, numbness/weakness/tingling of extremities. In the ED, her vital signs were stable. CBC showed WBC count of 17.2. CMP showed sodium 135, potassium of 5.3, BUN of 61, creatinine of 2.37, glucose of 145, calcium of 8, alkaline phosphatase of 305, total protein of 6. Lipase was 18. Lactic acid was 2.9. Urinalysis was cloudy in appearance. CTAP shows large stool burden throughout the colon and small hiatal hernia. Patient is admitted for severe dehydration. Patient was seen and examined. No acute events overnight. Patient reports well-controlled abdominal pain. She had multiple bowel movements after being started on enemas. She reports profound weakness and feels unsafe going home on discharge since she lives alone. She also complains of fatigue. General: non toxic, moderate distress, appears at stated age Derm: warm, dry Head: atraumatic, normocephalic, symmetric Eyes: EOMI, no lid lag, anicteric sclera Mouth: no lip lesion, mucus membranes moist Cardiovascular: S1S2 reg, no murmur, positive posterior tibial pulse bilateral, Lungs: CTA bilateral, no rhonchi, no rales , no accessory muscle use Abdominal: soft, tenderness to palpation right and left lower quadrant without rebound improved from admission, no guarding, no appreciable organomegaly Ext: no gross muscle atrophy, no edema, no contractures Neuro: no focal neuro deficits Psych: Alert, oriented, appropriate affect #Prerenal azotemia #Abdominal pain #Constipation #Leukocytosis #Normocytic anemia Resolved: Lactic acidosis, hyperkalemia Chronic conditions: Hypertension, anxiety Based on my assessment of this patient, this patient meets a moderate complexity level of care. Patient has an acute diagnosis of acute kidney injury with lactic acidosis that poses a threat to life or bodily function. I have reviewed the following data communications software consultant notes: Surgery note reviewed from 10/05, continue supportive care. I have reviewed the results of the following tests: None. I have ordered the following tests: None. I have discussed the care of this patient with the following independent hist orian: None. I have independently interpreted the following test below: None. I have discussed the management of this patient with the following physician: None. This patient has a moderate risk of morbidity due to the following reasons: Patient has an acute diagnosis of acute kidney injury with lactic acidosis that poses a threat to life or bodily function. Her lactic acidosis has resolved. Her renal function is slowly improving. She'll be continued on normal saline at 75 mL per hour. Aggressive bowel regimen ordered including Dulcolax 5 mg by mouth daily as needed, docusate 100 mg by mouth twice a day, MiraLAX 17 g by mouth daily, milk of magnesia 2400 mg by mouth daily as needed for constipation. General surgery on board. Full liquid diet and advance as tolerated. Unknown source of infection with regard to leukocytosis. Urinalysis is negative. CTAP negative. Possibly reactive. Continue to monitor with daily CBC. PT and OT consulted to work with this patient as she lives alone. Case was discussed with case management, plans for SNF on discharge. Referral placed for [facility]. Daughter is a surrogate POA. Patient would like to be no code. Objective - Vital Signs Vital signs: Vital Signs Temp 99.0 F 10/05/22 07:02 Pulse 71 10/05/22 07:02 Resp 20 10/05/22 07:02 BP 178/82 10/05/22 07:02 Pulse Ox 89 L 10/05/22 07:02 FiO2 Intake & Output 10/04/22 10/05/22 10/05/22 18:59 06:59 18:59 Intake Total 900 Balance 900 Intake: Intake, IV Titration 900 Amount Sodium Chloride 0.9% 1, 900 000 ml @ 75 mls/hr IV . [id number] ANTOINETTE Rx#:[id number] Other: # Voids 3 2 - Labs CBC & Chem 7: 10/04/22 05:11 10/04/22 05:11
[2022-10-05] MEDS: atenoloL 25 MG TAB PO SCH (15:22)
[2022-10-05] MEDS: PARoxetine 20 MG TAB PO SCH (15:22)
[2022-10-05] MEDS: buPROPion XL 300 MG TAB.ER.24H PO SCH (15:22)
[2022-10-05] MEDS ORDERED: cloNIDine HCL 0.2 MG TAB PO STA (22:32)
[2022-10-06] MEDS: SODIUM CHLORIDE 0.9% 1,000 ML IV SCH (07:07)
[2022-10-06] MEDS: HEPARIN SODIUM,PORCINE/PF 5,000 UNIT/0.5 ML SYRINGE SQ SCH ×2 (09:40→21:28)
[2022-10-06] MEDS: DOCUSATE 100 MG CAP PO SCH ×2 (09:40→21:28)
[2022-10-06] MEDS: polyethylene glycoL 3350 17 GM POWD.PACK PO SCH (09:41)
--- NOTE | 2022-10-06 10:34 | P.PN ---
Progress Note - Text Progress Note Date: 10/06/22 Patient [place] stable. She still has some mild complaints of abdominal pain. She is tolerating diet. On exam vital signs. Stable. Abdomen soft. Patient will be sent discharged to correction per the medical service.
--- NOTE | 2022-10-06 12:35 | P.PN ---
Subjective Progress Note Date: 10/06/22 Patient is a 72-year-old female with PMH of hypertension, anxiety and history of migraines that presents the ED for abdominal pain. Patient reports being treated for UTI 1 week ago with a course of antibiotics. Patient reports abdominal pain that started yesterday. Pain is constant, sharp and stabbing in nature. Pain is 10 out of 10 in severity. Pain is located in bilateral lower quadrants. Pain is associated with nausea and vomiting. Patient reports her last bowel movement was on . She reports foul-smelling odor in her urine. She denies any headache, lower extremity edema, fever or chills, cough, chest pain, shortness breath, palpitations. No changes in appetite or weight. She denies any dizziness, numbness/weakness/tingling of extremities. In the ED, her vital signs were stable. CBC showed WBC count of 17.2. CMP showed sodium 135, potassium of 5.3, BUN of 61, creatinine of 2.37, glucose of 145, calcium of 8, alkaline phosphatase of 305, total protein of 6. Lipase was 18. Lactic acid was 2.9. Urinalysis was cloudy in appearance. CTAP shows large stool burden throughout the colon and small hiatal hernia. Patient is admitted for severe dehydration. Her acute kidney injury, hyperkalemia and lactic acidosis resolved with IV hydration. General surgery was consulted and recommended enema. She had multiple bowel movements and her abdominal pain considerably improved. PT and OT evaluated the patient and recommended rehab. Patient was seen and examined. No acute events overnight. Patient reports well-controlled abdominal pain. She had multiple bowel movements after being started on enemas. She reports profound weakness and feels unsafe going home on discharge since she lives alone. General: non toxic, no distress, appears at stated age Derm: warm, dry Head: atraumatic, normocephalic, symmetric Eyes: EOMI, no lid lag, anicteric sclera Mouth: no lip lesion, mucus membranes moist Cardiovascular: S1S2 reg, no murmur, positive posterior tibial pulse bilateral, Lungs: CTA bilateral, no rhonchi, no rales , no accessory muscle use Abdominal: soft, NTTP , no guarding, no appreciable organomegaly Ext: no gross muscle atrophy, no edema, no contractures Neuro: no focal neuro deficits Psych: Alert, oriented, appropriate affect #Prerenal azotemia #Abdominal pain #Constipation #Leukocytosis #Normocytic anemia Resolved: Lactic acidosis, hyperkalemia Chronic conditions: Hypertension, anxiety Based on my assessment of this patient, this patient meets a moderate complexity level of care. Patient has an acute diagnosis of acute kidney injury with lactic acidosis that poses a threat to life or bodily function. I have reviewed the following media consultant outside sales notes: None. I have reviewed the results of the following tests: None. I have ordered the following tests: None. I have discussed the care of this patient with the following independent historian: None. I have independently interpreted the following test below: None. I have discussed the management of this patient with the following physician: None. This patient has a moderate risk of morbidity due to the following reasons: Patient has an acute diagnosis of acute kidney injury with lactic acidosis that poses a threat to life or bodily function. Her lactic acidosis has resolved. Her renal function is slowly improving. Discontinue IVF and encourage hydration by mouth. Aggressive bowel regimen ordered including Dulcolax 5 mg by mouth daily as needed, docusate 100 mg by mouth twice a day, MiraLAX 17 g by mouth daily, milk of magnesia 2400 mg by mouth daily as needed for constipation. General surgery on board. Full liquid diet and advance as tolerated. Unknown source of infection with regard to leukocytosis. Urinalysis is negative. CTAP negative. Possibly reactive. Continue to monitor with daily CBC. BP 183/90. Continue atenolol 25 mg by mouth daily for history of hypertension. Added Amlodipine 10 mg by mouth daily for better BP control. Continue Wellbutrin 300 mg by mouth daily, Paxil 40 mg by mouth daily for history of anxiety. PT and OT consulted to work with this patient as she lives alone. Case was discussed with case management, plans for SNF on discharge. Referral placed for [facility]. She is medically stable. Daughter is a surrogate POA. Patient would like to be no code. Objective - Vital Signs Vital signs: Vital Signs Temp 98.6 F 10/06/22 07:29 Pulse 70 10/06/22 07:29 Resp 17 10/06/22 07:29 BP 183/90 10/06/22 07:29 Pulse Ox 90 L 10/06/22 07:29 FiO2 Intake & Output 10/05/22 10/06/22 10/06/22 18:59 06:59 18:59 Other: Voiding Method Toilet External Catheter Diaper # Voids 2 4 # Bowel Movements 0 - Labs CBC & Chem 7: 10/04/22 05:11 10/04/22 05:11
[2022-10-06] MEDS: buPROPion XL 300 MG TAB.ER.24H PO SCH (13:55)
[2022-10-06] MEDS: PARoxetine 20 MG TAB PO SCH (13:55)
[2022-10-06] MEDS: atenoloL 25 MG TAB PO SCH (13:55)
[2022-10-06] MEDS: amLODIPine 10 MG TAB PO SCH (13:56)
[2022-10-06] MEDS ORDERED: cloNIDine HCL 0.2 MG TAB PO PRN (20:12)
[2022-10-07] MEDS: ACETAMINOPHEN TAB 325 MG TAB PO PRN ×2 (01:01→11:36)
[2022-10-07] MEDS: polyethylene glycoL 3350 17 GM POWD.PACK PO SCH (07:40)
[2022-10-07] MEDS: DOCUSATE 100 MG CAP PO SCH ×2 (07:40→21:35)
[2022-10-07] MEDS: HEPARIN SODIUM,PORCINE/PF 5,000 UNIT/0.5 ML SYRINGE SQ SCH ×2 (07:40→21:35)
[2022-10-07] MEDS: amLODIPine 10 MG TAB PO SCH (07:40)
[2022-10-07] MEDS ORDERED: LACTULOSE 20 GM/30 ML CUP PO ONE (10:00)
--- NOTE | 2022-10-07 12:34 | P.PN ---
Subjective Progress Note Date: 10/07/22 CHIEF COMPLAINT: Constipation HISTORY OF PRESENT ILLNESS: Surgical service following regards to patient's constipation. Last bowel movement charted was on October 05. Patient denies any abdominal pain. Diminished oral intake per nursing staff. Afebrile. No new lab PHYSICAL EXAM: VITAL SIGNS: Reviewed. GENERAL: Well-developed in no acute distress. HEENT: No sclera icterus. Extraocular movements grossly intact. Moist buccal mucosa. Head is atraumatic, normocephalic. ABDOMEN: Soft. Nondistended. Nontender. NEUROLOGIC: awake and alert. slightly confused ASSESSMENT: 1. Constipation 2. Acute kidney injury 3. Leukocytosis improving 4. Lactic acidosis improved PLAN: -Agree with lactulose -Continue stool softeners -Agree with regular diet -Encouraged patient to increase activity level -Patient will require ECF placement at discharge Physician Chief Media Officer note has been reviewed by physician. Signing provider agrees with the documented findings, assessment, and plan of care. Objective - Vital Signs Vital signs: Vital Signs Temp 99.0 F 10/07/22 07:06 Pulse 75 10/07/22 07:41 Resp 17 10/07/22 07:41 BP 166/79 10/07/22 07:06 Pulse Ox 95 10/07/22 08:54 FiO2 Intake & Output 10/06/22 10/07/22 10/07/22 18:59 06:59 18:59 Output Total 350 450 Balance -350 -450 Output: Urine 350 450 Other: Voiding Method External Catheter External Catheter External Catheter # Voids 2 - Labs CBC & Chem 7: 10/04/22 05:11 10/04/22 05:11
--- NOTE | 2022-10-07 14:21 | P.PN ---
Subjective Progress Note Date: 10/07/22 Hospital course: Patient is a very pleasant 72-year-old female with a past medical history of hypertension, anxiety and history of migraines that presents the ED for abdominal pain. Patient reports being treated for UTI 1 week ago with a course of antibiotics. Patient reports abdominal pain that started yesterday. Pain is constant, sharp and stabbing in nature. Pain is 10 out of 10 in severity. Pain is located in bilateral lower quadrants. Pain is associated with nausea and vomiting. Patient reports her last bowel movement was on . She reports foul-smelling odor in her urine. She denies any headache, lower extremity edema, fever or chills, cough, chest pain, shortness breath, palpitations. No changes in appetite or weight. She denies any dizziness, numbness/weakness/tingling of extremities. In the ED, her vital signs were stable. CBC showed WBC count of 17.2. CMP showed sodium 135, potassium of 5.3, BUN of 61, creatinine of 2.37, glucose of 145, calcium of 8, alkaline phosphatase of 305, total protein of 6. Lipase was 18. Lactic acid was 2.9. Urinalysis was cloudy in appearance. CTAP shows large stool burden throughout the colon and small hiatal hernia. Patient is admitted for severe dehydration. Her acute kidney injury, hyperkalemia and lactic acidosis resolved with IV hydration. General surgery was consulted and recommended enema. Patient has had multiple bowel movements and her abdominal pain has considerably improved. PT and OT evaluated the patient and recommended rehab. Physical exam: Patient seen and fully evaluated at bedside this morning. Patient's daughter also had bedside. Patient alert to person and place, and confused to time and situation. Patient reports she ate chocolate pudding for breakfast and denies having any other complaints at this time. Patient's daughter reports patient has not had a bowel movement in 2 days and another dose of lactulose to be given. This was discussed with general surgery and they were in agreement at this time. In addition order placed for advancement of patient's diet to regular diet. We'll monitor how patient tolerates. Vital signs reviewed and stable. General: Nontoxic, no distress and appears stated age. Thin and frail. Derm: Skin warm and dry, normal coloration for ethnicity. Head: Atraumatic, normocephalic and symmetric. Eyes: EOMs intact, no lid lag, and anicteric sclera Mouth: no lip lesions, mucus membranes moist Cardiovascular: regular rate and rhythm with normal S1S2, systolic murmur, positive posterior tibial pulses bilaterally, and cap refill < 2 seconds. Lungs: Respirations even, regular, and unlabored on room air. Lungs CTA bilaterally, no rhonchi, no rales, no wheezing, and no accessory muscle usage. Abdominal: soft, nontender to palpation, no guarding, no appreciable organomegaly Ext: ROM intact. No gross muscle atrophy, no edema, no contractures Neuro: Speech clear, face symmetrical and CN II-XII grossly intact with no noted focal neuro deficits Psych: Alert and oriented to person and place and confused to time and situation. Assessment and Plan of Care: Constipation Acute kidney injury, improved Dehydration Leukocytosis, improved Hyperchloremia Lactic acidosis, resolved Hyperkalemia secondary to acute kidney injury, resolved Hypertension Anxiety -Labs reviewed. Initial BUN 61, creatinine 2.37, and GFR of 20 improving to BUN of 52.4, creatinine 1.5, and GFR of 34. Orders placed for repeat CMP tomorrow morning for continued monitoring for resolution. -Order placed for advancement of diet to regular diet, will monitor how patient tolerates. -Discussed plan of care with general surgery PA and placed order for lactulose 30 mg by mouth 1 dose. General surgery and agreement with lactulose order and advancement of diet at this time. -Discussed plan of care with patient's daughter and social work, patient will need ECF placement at time of discharge. -Patient started on protein supplements 3 times daily between meals. -Physical therapy and occupational therapy following. Reviewed documentation in chart, they are recommending senior care facility upon discharge. -Leukocytosis improved from previous 17.2 down to 10.06. Leukocytosis possibly secondary to hemoconcentration of blood resulting from dehydration. Order placed for a CBC to be completed tomorrow morning to monitor for resolution. -Sodium elevating from 100-112. Secondary to IV fluid hydration for patient's acute kidney injury, IV fluids were discontinued at this time. Order placed for CMP to be completed tomorrow morning, will monitor for resolution. CODE STATUS: DO NOT RESUSCITATE/DO NOT INTUBATE DVT prophylaxis: Heparin Discussed with: patient, patient's daughter, RN, general surgery PA, and social work. Anticipated discharge date: [address]: senior care facility PATIENT SEEN INDEPENDENTLY BY NURSE PRACTITIONER. This document was prepared using My[employer] dictation software. Please allow for errors in arts administrator or manager, while rare they do occur. Arjun Cunha NP rendered care for this patient independently, reviewed the findings and plan as documented in the note above. I did not physically speak with or examine the patient on this date. Objective - Vital Signs Vital signs: Vital Signs Temp 99.0 F 10/07/22 07:06 Pulse 75 10/07/22 07:06 Resp 17 10/07/22 07:06 BP 166/79 10/07/22 07:06 Pulse Ox 95 10/07/22 08:54 FiO2 Intake & Output 10/06/22 10/07/22 10/07/22 18:59 06:59 18:59 Output Total 350 450 Balance -350 -450 Output: Urine 350 450 Other: Voiding Method External Catheter External Catheter # Voids 2 - Labs CBC & Chem 7: 10/07/22 22:50 10/07/22 22:50
[2022-10-07] MEDS: buPROPion XL 300 MG TAB.ER.24H PO SCH (16:36)
[2022-10-07] MEDS: PARoxetine 20 MG TAB PO SCH (16:36)
[2022-10-07] MEDS: atenoloL 25 MG TAB PO SCH (16:36)
[2022-10-07] MEDS ORDERED: METOPROLOL TARTRATE 5 MG/5 ML VIAL IVP STA (20:22)
[2022-10-07] MEDS ORDERED: METOPROLOL TARTRATE 50 MG TAB PO STA (20:22)
[2022-10-07] MEDS ORDERED: METOPROLOL TARTRATE 5 MG/5 ML VIAL IVP SCH (20:30)
[2022-10-07 23:42] LABS: African American GFR (CKD) 88 (>60 ml/min/1.73 sqM); Anion Gap 9 mmol/L; Blood Urea Nitrogen 23 mg/dL (7-17); Calcium 7.5 mg/dL (8.4-10.2); Carbon Dioxide 28 mmol/L (22-30); Chloride 100 mmol/L (98-107); Glucose 133 mg/dL (74-99); Magnesium 1.8 mg/dL (1.6-2.3); Non-African American GFR(CKD) 76 (>60 ml/min/1.73 sqM); Sodium 137 mmol/L (137-145)
[2022-10-07 23:59] LABS: HCT 36.3 % (34.0-46.0); MCV 97.1 fL (80.0-100.0); Mean Platelet Volume 9.5; Platelet Count 196 k/uL (150-450); RBC 3.74 m/uL (3.80-5.40); RDW 13.3 % (11.5-15.5); WBC 17.8 k/uL (3.8-10.6)
[2022-10-08 00:24] LABS: Potassium 2.6 mmol/L (3.5-5.1)
[2022-10-08 00:39] LABS: Band Neutrophils % 15 %; Lymphocytes # (M) 1.07 k/uL (1.0-4.8); Metamyelocytes # (M) 0.18 k/uL (0); Metamyelocytes % 1 %; Monocytes # (M) 0.89 k/uL (0-1.0); Neutrophils % (M) 74 %; Nucleated Red Blood Cells 0 /100 WBC (0-0); Total Cells Counted 200
[2022-10-08 00:40] LABS: Anisocytosis (M) Present
[2022-10-08] MEDS: POTASSIUM CHLORIDE 10 MEQ in WATER FOR INJECTION 1 100ML.BAG IVPB SCH ×2 (01:41→03:13)
[2022-10-08] MEDS: POTASSIUM CHLORIDE ER 20 MEQ TAB.ER PO SCH ×2 (01:42→03:15)
[2022-10-08] MEDS: DOCUSATE 100 MG CAP PO SCH (07:38)
[2022-10-08] MEDS: polyethylene glycoL 3350 17 GM POWD.PACK PO SCH (07:38)
[2022-10-08] MEDS: HEPARIN SODIUM,PORCINE/PF 5,000 UNIT/0.5 ML SYRINGE SQ SCH (07:40)
[2022-10-08] MEDS: amLODIPine 10 MG TAB PO SCH (07:40)
[2022-10-08] MEDS ORDERED: APIXABAN 5 MG TAB PO SCH (09:15)
[2022-10-08 09:20] LABS: HCT 36.6 % (37.2-46.3); HGB 11.8 g/dL (12.0-15.0); MCH 31.1 pg (27.0-32.0); MCHC 32.2 g/dL (32.0-37.0); MCV 96.6 fL (80.0-97.0); Mean Platelet Volume 11.2 fL (9.5-12.2); NRBC Per 100 WBC 0 /100 WBCS (0.0-0.0); Platelet Count 284 X 10*3/uL (140-440); RBC 3.79 X 10*6/uL (4.10-5.20); RDW 13.8 % (11.5-14.5); WBC 18.38 X 10*3/uL (4.50-10.00)
--- NOTE | 2022-10-08 10:26 | P.CRDCN ---
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 Patient presented to the hospital on October 02 and was diagnosed with constipation, acute kidney injury, dehydration. Patient also treated for hypokalemia yesterday. We have been asked to evaluate the patient for abnormal EKG. EKG revealed atrial fibrillation and patient has subsequently converted back to sinus rhythm. This occurred last evening around 8 PM. Patient states that she sometimes feels some palpitations, no chest pain, no shortness of breath. Patient is on atenolol as a home medication and was given 1 dose of metoprolol 50 mg oral. Yesterday, potassium was 2.6 and was replaced. Repeat blood work is pending this morning. EKG atrial fibrillation with ventricular rate of 152. Repeat EKG this morning sinus rhythm at 85 bpm Repeat blood work reveals WBC 18.3, hemoglobin 11.8. Chemistry panel is pending. Home cardiac medications: Atenolol 25 mg daily Echocardiogram 02/2022: Normal left size and systolic function. Aortic sclerosis with mild aortic regurgitation. Trace mitral and tricuspid regurgitation. Review Of Systems: At the time of my evaluation: Constitutional: No fever, no chills. EENT: No headache. No dizziness. Lungs: No shortness of breath, cough, no sputum production. No wheezing. Cardiovascular: No chest pain, no lower extremity edema. No palpitations. No paroxysmal nocturnal dyspnea. No orthopnea. No lightheadedness or dizziness. No syncopal episodes. Abdominal: Resolved abdominal pain. Reported constipation. Neurologic: No aphasia. No facial droop. No change in mentation. No head injury. No headache. Physical examination: Gen: This is a 72-year-old female. She is resting but appears to be comfortable. VS: reviewed HEENT: Head is atraumatic, normocephalic. Pupils equal, round. Sclerae is anicteric. NECK: Supple. No JVD. LUNGS: Clear to auscultation. No wheezes or rhonchi. No intercostal retr actions. HEART: Regular rate and rhythm. No murmur. ABDOMEN: Soft. No masses. No tenderness. EXTREMITIES: No pedal edema. No calf tenderness. NEUROLOGICAL: Patient is awake, alert and oriented. Assessment: New onset paroxysmal atrial fibrillation with RVR Hypertension Constipation Plan: Increase atenolol to 50 mg daily and start patient on eliquis 5 mg twice daily Obtain lipid panel, TSH Obtain 2-D echocardiogram and Doppler study to assess cardiac structure and function Further recommendations to follow based upon clinical course Thank you kindly for this consultation. Nurse practitioner note has been reviewed, I agree with documented findings and plan of care. Patient was seen and examined. Past Medical History Past Medical History: Cancer, Hypertension, Osteoarthritis (OA), Sleep Apnea/CPAP/BIPAP, Thyroid Disorder Additional Past Medical History / Comment(s): C-PAP MACHINE , PAST HX OF HTN, SCOLIOSIS, BACK PAIN, SQUAMOUS CELL SKIN CANCER, Raynauds, back fracture History of Any Multi-Drug Resistant Organisms: None Reported Past Surgical History: Back Surgery, Bladder Surgery, Hysterectomy, Joint Replacement Additional Past Surgical History / Comment(s): LEFT ELBOW FX, t12 fracture surgery on 12/21/21, left hip replaced Past Anesthesia/Blood Transfusion Reactions: Postoperative Nausea & Vomiting (PONV) Additional Past Anesthesia/Blood Transfusion Reaction / Comment(s): no problems with blood transfusions Past Psychological History: Anxiety, Depression Smoking Status: Former smoker Past Alcohol Use History: Occasional Additional Past Alcohol Use History / Comment(s): SMOKED 1 YEAR IN HER LATE 20'S Past Drug Use History: Marijuana Additional Drug Use History / Comment(s): occastional maijuana use, last time being in late december/early january 2022. - Past Family History Brother(s) Family Medical History: Cancer Additional Family Medical History / Comment(s): PROSTATE CANCER, parkinsons Father Family Medical History: Myocardial Infarction ([place]) Additional Family Medical History / Comment(s): of [place] at 59 Mother Family Medical History: Congestive Heart Failure (CHF), Osteoarthritis (OA) Medications and Allergies Home Medications Medication Instructions Recorded Confirmed Type PARoxetine HCL [Paxil] 40 mg PO DAILY@1500 03/23/19 10/02/22 History buPROPion HCL [Wellbutrin XL] 300 mg PO DAILY@1500 03/23/19 10/02/22 History Rizatriptan Benzoate [Rizatriptan] 10 mg PO DAILY PRN 02/12/22 10/02/22 History atenoloL 25 mg PO DAILY@1500 10/02/22 10/02/22 History Allergies Allergy/AdvReac Type Severity Reaction Status Date / Time erythromycin base AdvReac Unknown Abdominal Verified 10/02/22 16:18 Pain Physical Exam Vitals: Vital Signs Temp Pulse Pulse Resp BP Pulse Ox 10/08/22 06:54 98.4 F 88 18 146/84 95 10/08/22 01:10 99.9 F H 98 17 155/90 93 L 10/07/22 19:52 148 H 10/07/22 19:15 98.9 F 152 H 16 150/89 94 L 10/07/22 14:00 98.8 F 81 14 134/79 94 L Intake and Output 10/07/22 10/08/22 10/08/22 22:59 06:59 14:59 Other: Voiding Method Diaper Incontinent # Voids 3 1 # Bowel Movements 1 3 Results 10/08/22 03:39 10/07/22 22:50 CBC 10/07/22 Range/Units 22:50 WBC 17.8 H (3.8-10.6) k/uL RBC 3.74 L (3.80-5.40) m/uL Hgb 12.0 (11.4-16.0) gm/dL Hct 36.3 (34.0-46.0) % Plt Count 196 (150-450) k/uL Comprehensive Metabolic Panel 10/07/22 Range/Units 22:50 Sodium 137 (137-145) mmol/L Potassium 2.6 L* (3.5-5.1) mmol/L Chloride 100 (98-107) mmol/L Carbon Dioxide 28 (22-30) mmol/L BUN 23 H (7-17) mg/dL Creatinine 0.77 (0.52-1.04) mg/dL Glucose 133 H (74-99) mg/dL Calcium 7.5 L (8.4-10.2) mg/dL Current Medications Generic Name Dose Route Start Last Admin Trade Name Freq PRN Reason Stop Dose Admin Acetaminophen 650 mg 10/02/22 17:31 10/07/22 11:36 Acetaminophen Tab 325 Mg Tab PO 650 mg Q6HR PRN Administration Mild Pain or Fever > 100.5 Amlodipine Besylate 10 mg 10/06/22 12:45 10/08/22 07:40 Amlodipine 10 Mg Tab PO 10 mg DAILY ANTOINETTE Administration Atenolol 50 mg 10/09/22 09:00 Atenolol 50 Mg Tab PO DAILY [facility] Bisacodyl 5 mg 10/02/22 17:31 Bisacodyl 5 Mg Tablet.Dr PO DAILY PRN Constipation Bupropion HCl 300 mg 10/03/22 15:00 10/07/22 16:36 Bupropion Xl 300 Mg Tab.Er.24h PO 300 mg DAILY@1500 [facility] Administration Clonidine 0.2 mg 10/06/22 20:12 Clonidine Hcl 0.2 Mg Tab PO QID PRN Blood Pressure - High Docusate Sodium 100 mg 10/04/22 21:00 10/08/22 07:38 Docusate 100 Mg Cap PO Not Given BID [facility] Heparin Sodium (Porcine) 5,000 unit 10/02/22 21:00 10/08/22 07:40 Heparin Sodium,Porcine/Pf 5,000 Unit/0.5 Ml Syringe SQ Not Given Q12HR [facility] Magnesium Hydroxide 2,400 mg 10/02/22 17:31 Magnesium Hydroxide 2,400 Mg/10 Ml Cup PO DAILY PRN Constipation Melatonin 3 mg 10/02/22 17:31 10/06/22 21:28 Melatonin 3 Mg Tablet PO 3 mg HS PRN Administration Insomnia Naloxone HCl 0.2 mg 10/02/22 17:31 Naloxone 0.4 Mg/Ml 1 Ml Vial IV Q2M PRN Opioid Reversal Ondansetron HCl 4 mg 10/02/22 15:27 Ondansetron 4 Mg/2 Ml Vial IVP Q6HR PRN Nausea And Vomiting Paroxetine HCl 40 mg 10/03/22 15:00 10/07/22 16:36 Paroxetine 20 Mg Tab PO 40 mg DAILY@1500 [facility] Administration Polyethylene Glycol 17 gm 10/05/22 09:00 10/08/22 07:38 Polyethylene Glycol 3350 17 Gm Powd.Pack PO Not Given DAILY ANTOINETTE Intake and Output 10/07/22 10/08/22 10/08/22 22:59 06:59 14:59 Other: Voiding Method Diaper Incontinent # Voids 3 1 # Bowel Movements 1 3 10/07/22 22:50 10/07/22 22:50
[2022-10-08 11:45] LABS: Albumin 2.8 g/dL (3.8-4.9); Albumin/Globulin Ratio 1.04 (1.60-3.17); Anion Gap 12.9 mmol/L (10.00-18.00); BUN/Creat Ratio 27.33 Ratio (12.00-20.00); Blood Urea Nitrogen 24.6 mg/dL (9.0-27.0); Calcium 7.7 mg/dL (8.7-10.3); Carbon Dioxide 27.1 mmol/L (20.0-27.5); Globulin 2.7 g/dL (1.6-3.3); Total Bilirubin 0.5 mg/dL (0.30-1.20); Total Protein 5.5 g/dL (6.2-8.2)
[2022-10-08] MEDS ORDERED: POTASSIUM CHLORIDE ER 20 MEQ TAB.ER PO STA (12:43)
--- NOTE | 2022-10-08 13:28 | XR ---
EXAMINATION TYPE: XR chest 1V portable DATE OF EXAM: 10/08/2022 COMPARISON: NONE HISTORY: Psychosis of unclear etiology. TECHNIQUE: Single frontal view of the chest is obtained. FINDINGS: There is no focal air space opacity, pleural effusion, or pneumothorax seen. The cardiac silhouette size is within normal limits. The osseous structures are intact. The lung volumes are low. There is degenerative changes seen within the shoulder joints bilaterally with severe on the right an d [id number] on the left. IMPRESSION: No acute process.
[2022-10-08] MEDS ORDERED: DOCUSATE 100 MG CAP PO PRN (13:43)
--- NOTE | 2022-10-08 13:45 | P.PN ---
Subjective Progress Note Date: 10/08/22 CHIEF COMPLAINT: Constipation HISTORY OF PRESENT ILLNESS: Surgical service following regards to patient's constipation. Patient had multiple loose stool through the night. Stool softeners hold this morning. She did have atrial fibrillation with rapid ventricular response. She's found have a low potassium of 2.6. Patient evaluated by cardiology. They've adjusted her medications and her adding Eliq uis for anticoagulation. Patient denies any abdominal pain. Denies any nausea or vomiting. Oral intake is decreased. Patient reports she does not like the food here. Afebrile. She did have a low-grade temp of 99.9 last night. WBC is up from 17-18 Hgb 11.8 platelets 284 sodium 140 potassium improved from 2.6-3.0 creatinine 0.9 medicine service has ordered a computed tomography scan abdomen a nd pelvis PHYSICAL EXAM: VITAL SIGNS: Reviewed. GENERAL: Well-developed in no acute distress. HEENT: No sclera icterus. Extraocular movements grossly intact. Moist buccal mucosa. Head is atraumatic, normocephalic. ABDOMEN: Soft. Nondistended. Nontender. NEUROLOGIC: awake and alert. slightly confused ASSESSMENT: 1. Constipation 2. Acute kidney injury resolved 3. Leukocytosis PLAN: -Follow up on computed tomography scan abdomen and pelvis -Okay to start anticoagulation from surgical standpoint -Potassium being replaced by medicine service -Discontinue MiraLAX and place Colace as needed -Continue regular diet -Encouraged patient to increase activity level -Patient will require ECF placement at discharge Physician Job Printer note has been reviewed by physician. Signing provider agrees with the documented findings, assessment, and plan of care. Objective - Vital Signs Vital signs: Vital Signs Temp 98.4 F 10/08/22 06:54 Pulse 88 10/08/22 06:54 Resp 18 10/08/22 06:54 BP 146/84 10/08/22 06:54 Pulse Ox 94 L 10/08/22 09:40 FiO2 Intake & Output 10/07/22 10/08/22 10/08/22 18:59 06:59 18:59 Other: Voiding Method External Catheter Diaper Incontinent # Voids 3 1 # Bowel Movements 1 3 - Labs CBC & Chem 7: 10/08/22 03:39 10/08/22 03:39 Labs: Abnormal Lab Results - Last 24 Hours (Table) 10/07/22 10/07/22 10/08/22 Range/Units 22:50 22:50 03:39 WBC 17.8 H 18.38 H (3.8-10.6) k/uL RBC 3.74 L 3.79 L (3.80-5.40) m/uL Hgb 11.8 L (12.0-15.0) g/dL Hct 36.6 L (37.2-46.3) % Neutrophils # (Manual) 15.80 H (1.3-7.7) k/uL Metamyelocytes # (Man) 0.18 H (0) k/uL Potassium 2.6 L* (3.5-5.1) mmol/L BUN 23 H (7-17) mg/dL BUN/Creatinine Ratio (12.00-20.00) Ratio Glucose 133 H (74-99) mg/dL Calcium 7.5 L (8.4-10.2) mg/dL Total Protein (6.2-8.2) g/dL Albumin (3.8-4.9) g/dL Albumin/Globulin Ratio (1.60-3.17) g/dL 10/08/22 Range/Units 03:39 WBC (3.8-10.6) k/uL RBC (3.80-5.40) m/uL Hgb (12.0-15.0) g/dL Hct (37.2-46.3) % Neutrophils # (Manual) (1.3-7.7) k/uL Metamyelocytes # (Man) (0) k/uL Potassium 3.0 L (3.5-5.1) mmol/L BUN (7-17) mg/dL BUN/Creatinine Ratio 27.33 H (12.00-20.00) Ratio Glucose 114 H (74-99) mg/dL Calcium 7.7 L (8.4-10.2) mg/dL Total Protein 5.5 L (6.2-8.2) g/dL Albumin 2.8 L (3.8-4.9) g/dL Albumin/Globulin Ratio 1.04 L (1.60-3.17) g/dL
[2022-10-08] MEDS: IOPAMIDOL CONTRAST (ORAL USE) VIAL PO PRN ×2 (14:04→14:58)
[2022-10-08] MEDS: PARoxetine 20 MG TAB PO SCH (14:57)
[2022-10-08] MEDS: ACETAMINOPHEN TAB 325 MG TAB PO PRN (14:58)
[2022-10-08] MEDS: buPROPion XL 300 MG TAB.ER.24H PO SCH (14:58)
--- NOTE | 2022-10-08 16:18 | CT ---
EXAMINATION: CT ABDOMEN AND PELVIS WITH IV CONTRAST DATE OF EXAMINATION: 10/08/2022. COMPARISON: 2022.. INDICATION: Abdominal pain, constipation and decreased oral intake. PROCEDURE: Axial CT of the abdomen and pelvis was performed with contrast and sagittal and coronal reformatted images were performed. CT dose lowering techniques were used, to include: automated expos ure control, adjustment for patient size, and/or use of iterative reconstruction. 100 mL of Isovue-30 0 was given intravenously. FINDINGS: LOWER CHEST : There are some bands of atelectasis and platelike atelectasis within the right lung ba se which is slightly increased since the previous examination. There are no pleural or pericardial ef fusions. Some minimal atelectasis is seen within the left lung base is also new since the previous ex amination. ABDOMEN: Liver and Biliary system: Normal. Adrenal glands: Normal. Kidneys and ureters: Unchanged right renal cysts the kidneys otherwise appear unremarkable. Spleen: A calcified granuloma within the spleen. Pancreas: Normal. Gallbladder: Gallbladder is distended in a similar fashion on the previous examination, however ther e is mucosal enhancement which could potentially relate to inflammation. There are no radiopaque gall stones are otherwise noted. Clinical correlation is recommended.. Lymph nodes, Peritoneum and mesentery: There is no mesenteric or retroperitoneal lymphadenopathy. Gastrointestinal tract: There are numerous significant dilated loops of small bowel seen throughout the abdomen which have air-fluid levels. There is an area of narrowing which appears to be in 2 porti ons of the small bowel within the right lower abdomen or there may be some swirling of the mesentery as this may relate to an area of internal hernia. These findings are compatible with obstruction. Th ere is no evidence of appendicitis. Aorta/IVC: There is moderate vascular calcification throughout the abdominal aorta without evidence of aneurysmal dilation or dissection. IVC normal. Abdominal wall: Normal. PELVIS: Fluid: There is no free fluid in the pelvis. Lymph Nodes: There is no pelvic or inguinal lymphadenopathy.. Urinary bladder: Normal. BONES: Compression deformities of lower thoracic vertebral bodies with kyphoplasty cement are unchan ged. The bones are diffusely demineralized. No new bony findings are otherwise seen. ADDITIONAL SIGNIFICANT FINDINGS: None. IMPRESSION: 1. Small bowel obstruction as above. 2. Additional chronic and incidental changes otherwise noted above.
--- NOTE | 2022-10-08 16:51 | P.PN ---
Subjective Progress Note Date: 10/08/22 Hospital course: Patient is a very pleasant 72-year-old female with a past medical history of hypertension, anxiety and history of migraines that presents the ED for abdominal pain. Patient reports being treated for UTI 1 week ago with a course of antibiotics. Patient reports abdominal pain that started yesterday. Pain is constant, sharp and stabbing in nature. Pain is 10 out of 10 in severity. Pain is located in bilateral lower quadrants. Pain is associated with nausea and vomiting. Patient reports her last bowel movement was on . She reports foul-smelling odor in her urine. She denies any headache, lower extremity edema, fever or chills, cough, chest pain, shortness breath, palpitations. No changes in appetite or weight. She denies any dizziness, numbness/weakness/tingling of extremities. In the ED, her vital signs were stable. CBC showed WBC count of 17.2. CMP showed sodium 135, potassium of 5.3, BUN of 61, creatinine of 2.37, glucose of 145, calcium of 8, alkaline phosphatase of 305, total protein of 6. Lipase was 18. Lactic acid was 2.9. Urinalysis was cloudy in appearance. CTAP shows large stool burden throughout the colon and small hiatal hernia. Patient is admitted for severe dehydration. Her acute kidney injury, hyperkalemia and lactic acidosis resolved with IV hydration. General surgery was consulted and recommended enema. Patient has had multiple bowel movements and her abdominal pain has considerably improved. PT and OT evaluated the patient and recommended rehab. Physical exam: Patient seen and fully evaluated at bedside this morning, she remains alert to person and place, and confused to time and situation. Patient continues to have decreased oral intake and had episode of atrial fibrillation with RVR overnight. Morning labs reviewed showing significant increase in leukocytosis increasing up to 18.38. Urinalysis was unremarkable. Patient denies having any pain or complaints, no cough or congestion, suspect intra-abdominal etiology. Patient being started on IV antibiotic Zosyn and orders placed for blood cultures 2 sets, lactic acid, chest x-ray, and CT abdomen and pelvis with oral and IV contrast will follow-up on results. Vital signs reviewed and stable. General: Nontoxic, no distress and appears stated age. Thin and frail. Derm: Skin warm and dry, normal coloration for ethnicity. Head: Atraumatic, normocephalic and symmetric. Eyes: EOMs intact, no lid lag, and anicteric sclera Mouth: no lip lesions, mucus membranes moist Cardiovascular: regular rate and rhythm with normal S1S2, systolic murmur, positive posterior tibial pulses bilaterally, and cap refill < 2 seconds. Lungs: Respirations even, regular, and unlabored on room air. Lungs CTA bilaterally, no rhonchi, no rales, no wheezing, and no accessory muscle usage. Abdominal: soft distended, nontender to palpation, no guarding, no appreciable organomegaly Ext: ROM intact. No gross muscle atrophy, no edema, no contractures Neuro: Speech clear, face symmetrical and CN II-XII grossly intact with no noted focal neuro deficits Psych: Alert and oriented to person and place and confused to time and situation. Assessment and Plan of Care: Atrial fibrillation with RVR, patient went into new onset A. fib with RVR overnight with heart rate increasing to 150s. Currently maintaining sinus mechanism. -Cardiology consulted and discussed plan of care with manager pulmonary and card iology CLEAT THROWER. They recommended starting patient on Eliquis 5 mg twice daily and changing metoprolol to atenolol 50 mg daily. -Echocardiogram to be completed -Repeat morning EKG was completed showing normal sinus rhythm at 85 bpm with no noted T-wave or ST abnormalities showing no signs of acute ischemia upon personal review and interpretation. Leukocytosis -Patient with worsening leukocytosis positive for band neutrophils. WBCs increasing to 18.38. -Patient denying having any pain or complaints, concern for intra-abdominal process as abdomen is distended but patient denies pain upon palpation. -Patient being started on IV antibiotic Zosyn and orders placed for blood cultures 2 sets, lactic acid, chest x-ray, and CT abdomen and pelvis with oral and IV contrast will follow-up on results. -Discussed plan of care with general surgeon. Hypokalemia -Potassium was 2.6 overnight replaced and repeat morning labs show potassium of 3.0. Order placed for K Dur 40 mEq and we will continue to monitor closely with repeat a.m. labs. Constipation Acute kidney injury, resolved Dehydration, resolved Hyperchloremia, resolved Lactic acidosis, resolved Hyperkalemia secondary to acute kidney injury, resolved Hypertension Anxiety -Morning Labs reviewed. CBC revealing worsening leukocytosis with WBC count of 18.38 and continued normocytic anemia with hemoglobin of 11.8. BMP revealing hyperkalemia with potassium of 3.0. -Order placed for advancement of diet to regular diet, will monitor how patient tolerates. -Patient to continue protein supplements 3 times daily between meals. -Physical therapy and occupational therapy following. Reviewed documentation in chart, they are recommending alf facility upon discharge. -Acute kidney injury resolved and renal function remains stable this morning with BUN of 24.6, creatinine 0.9, and GFR of 63.0. CODE STATUS: DO NOT RESUSCITATE/DO NOT INTUBATE DVT prophylaxis: Heparin Discussed with: patient, general surgeon, and social work. Anticipated discharge date: Clinical course to determine Anticipated discharge place: alf facility PATIENT SEEN INDEPENDENTLY BY NURSE PRACTITIONER. This document was prepared using [employer] dictation software. Please allow for errors in bricklayer paving brick, while rare they do occur. Arjun Cunha CLEAT THROWER rendered care for this patient independently, reviewed the findings and plan as documented in the note above. I did not physically speak with or examine the patient on this date. Objective - Vital Signs Vital signs: Vital Signs Temp 98.4 F 10/08/22 06:54 Pulse 88 10/08/22 06:54 Resp 18 10/08/22 06:54 BP 146/84 10/08/22 06:54 Pulse Ox 95 10/08/22 06:54 FiO2 Intake & Output 10/07/22 10/08/22 10/08/22 18:59 06:59 18:59 Other: Voiding Method External Catheter Diaper Incontinent # Voids 3 1 # Bowel Movements 1 3 - Labs CBC & Chem 7: 10/10/22 04:17 10/10/22 09:33 Labs: Abnormal Lab Results - Last 24 Hours (Table) 10/07/22 10/07/22 Range/Units 22:50 22:50 WBC 17.8 H (3.8-10.6) k/uL RBC 3.74 L (3.80-5.40) m/uL Neutrophils # (Manual) 15.80 H (1.3-7.7) k/uL Metamyelocytes # (Man) 0.18 H (0) k/uL Potassium 2.6 L* (3.5-5.1) mmol/L BUN 23 H (7-17) mg/dL Glucose 133 H (74-99) mg/dL Calcium 7.5 L (8.4-10.2) mg/dL
[2022-10-08] MEDS: SODIUM CHLORIDE 0.9% 1,000 ML IV SCH (17:30)
[2022-10-08] MEDS: PIPERACILLIN-TAZOBACTAM 3.375 GM in SODIUM CHLORIDE 0.9% 100 ML IVPB SCH (17:30)
--- NOTE | 2022-10-08 17:47 | XR ---
EXAMINATION TYPE: XR chest 1V confirm line plcmt DATE OF EXAM: 10/08/2022 5:30 PM COMPARISON: Chest radiographs from same day. TECHNIQUE: XR chest 1V confirm line plcmt Portable AP radiograph of the chest. CLINICAL INDICATION:Female, 72 years old with history of ngt placement; FINDINGS: Lungs/Pleura: There is no evidence of pleural effusion, focal consolidation, or pneumothorax. Pulmonary vascularity: Unremarkable. Heart/mediastinum: Cardiomediastinal silhouette is partially obscured due to patient positioning.. Musculoskeletal: Degenerative changes of the shoulder joints. Other findings: None Lines/Tubes: Nasogastric tube with its distal tip and side-port projecting under the diaphragm. IMPRESSION: Nasogastric tube in appropriate position. Unchanged exam.
[2022-10-09] MEDS: PIPERACILLIN-TAZOBACTAM 3.375 GM in SODIUM CHLORIDE 0.9% 100 ML IVPB SCH ×4 (00:07→23:29)
[2022-10-09] MEDS: SODIUM CHLORIDE 0.9% 1,000 ML IV SCH ×2 (02:55→17:59)
--- NOTE | 2022-10-09 08:21 | XR ---
EXAMINATION TYPE: XR chest 1V confirm line plcmt DATE OF EXAM: 10/09/2022 7:43 AM COMPARISON: Chest radiographs from 10/08/2022 TECHNIQUE: XR chest 1V confirm line plcmt Portable AP radiograph of the chest. CLINICAL INDICATION:Female, 72 years old with history of NGT placement; FINDINGS: Lungs/Pleura: There is no evidence of pleural effusion, focal consolidation, or pneumothorax. Pulmonary vascularity: Unremarkable. Heart/mediastinum: Cardiomediastinal silhouette is unremarkable. Musculoskeletal: No acute osseous pathology. Other findings: None Lines/Tubes: Nasogastric tube with its distal tip and side-port projecting under the diaphragm. IMPRESSION: No acute cardiopulmonary disease/process. Nasogastric tube in appropriate position.
[2022-10-09] MEDS ORDERED: DEXTROSE 50% SYRINGE 50 ML IVP PRN ×2 (08:26)
--- NOTE | 2022-10-09 08:33 | P.PN ---
Subjective Progress Note Date: 10/09/22 Hospital course: Patient is a very pleasant 72-year-old female with a past medical history of hypertension, anxiety and history of migraines that presents the ED for abdominal pain. Patient reports being treated for UTI 1 week ago with a course of antibiotics. Patient reports abdominal pain that started yesterday. Pain is constant, sharp and stabbing in nature. Pain is 10 out of 10 in severity. Pain is located in bilateral lower quadrants. Pain is associated with nausea and vomiting. Patient reports her last bowel movement was on . She reports foul-smelling odor in her urine. She denies any headache, lower extremity edema, fever or chills, cough, chest pain, shortness breath, palpitations. No changes in appetite or weight. She denies any dizziness, numbness/weakness/tingling of extremities. In the ED, her vital signs were stable. CBC showed WBC count of 17.2. CMP showed sodium 135, potassium of 5.3, BUN of 61, creatinine of 2.37, glucose of 145, calcium of 8, alkaline phosphatase of 305, total protein of 6. Lipase was 18. Lactic acid was 2.9. Urinalysis was cloudy in appearance. CTAP shows large stool burden throughout the colon and small hiatal hernia. Patient is admitted for severe dehydration. Her acute kidney injury, hyperkalemia and lactic acidosis resolved with IV hydration. General surgery was consulted and recommended enema. Patient has had multiple bowel movements and her abdominal pain has considerably improved. PT and OT evaluated the patient and recommended rehab. Physical exam: Vital signs reviewed and stable. General: Nontoxic, no distress and appears stated age. Thin and frail. Derm: Skin warm and dry, normal coloration for ethnicity. Head: Atraumatic, normocephalic and symmetric. Eyes: EOMs intact, no lid lag, and anicteric sclera Mouth: no lip lesions, mucus membranes moist Cardiovascular: regular rate and rhythm with normal S1S2, systolic murmur, positive posterior tibial pulses bilaterally, and cap refill < 2 seconds. Lungs: Respirations even, regular, and unlabored on room air. Lungs CTA bilaterally, no rhonchi, no rales, no wheezing, and no a year was ccessory muscle usage. Abdominal: soft distended, nontender to palpation, no guarding, no appreciable organomegaly Ext: ROM intact. No gross muscle atrophy, no edema, no contractures Neuro: Speech clear, face symmetrical and CN II-XII grossly intact with no noted focal neuro deficits Psych: Alert and oriented to person and place and confused to time and situation. Assessment and Plan of Care: Small bowel obstruction -NSP surgical risk calculator completed showing patient at increased risk of serious complication showing an average of 6.4% risk with patient having above average risk of 13.8%, increased risk of developing pneumonia with average risk being 0.7% and patient being 3.3%, above average risk of cardiac complications with average of 0.4% and patient having a 1.4%, and an above average risk of with average of 0.3% and patient having a 3.2% risk. Patient has had a high risk for surgical intervention, however there are no absolute contraindications to undergo surgery from medical standpoint at this time. Patient has been medically optimized for surgery, and discussed with event organizer and cardiology GOODWILL AMBASSADOR whom have provided cardiac clearance to proceed w ith surgery. -CT abdomen and pelvis with oral and IV contrast was completed yesterday due to increasing leukocytosis and decreased oral intake, upon review of radiology report showing small bowel obstruction. -Order placed for NG tube placement to low intermittent suction. -Reviewed x-ray radiology report confirming placement of NG tube. -Discussed CT findings with with general surgeon whom stated he plans to take patient for exploratory laparotomy with lysis of adhesions later today. -Eliquis stopped at this time and cardiology [facility] AMBASSADOR was notified. -Patient placed on strict NPO with the exception of medications and pt started on D5 0.45%NS at 100 mL's per hour. Hypernatremia -Sodium resulting in 147. 0.9% normal saline infusion discontinued and order was placed for D5 0.45% at 100. New-onset paroxysmal atrial fibrillation with RVR, currently maintaining sinus mechanism -Cardiology consulted and discussed plan of care with event organizer and cardiology [facility] AMBASSADOR. -Cardiology in agreement of holding Eliquis 5 mg twice daily to complete exploratory laparotomy with lysis of adhesions, recommend resuming once cleared by general surgery. -Patient to continue atenolol 50 mg daily. -Echocardiogram was completed, awaiting for report Leukocytosis Normocytic anemia -Morning Labs reviewed. CBC revealing slightly improving leukocytosis with WBC count of 16.84 down from 18.38 yesterday and continued normocytic anemia with hemoglobin of 10.0. -Patient to continue IV antibiotics Zosyn pending further results. -We will follow up on blood culture results. -Patient scheduled to undergo exploratory laparotomy with lysis of adhesions later today secondary to findings on abdominal CT revealing small bowel obstruction. -Reviewed findings on chest x-ray, lungs appear clear with no acute cardiopulmonary process noted. -Order placed for repeat morning CBC to follow up on the leukocytosis and postoperative hemoglobin. Additional orders may be placed based upon these results. Hypokalemia -Resolved. Repeat BMP showing potassium of 3.8 this morning. Resolved: Acute kidney injury, resolved Dehydration, resolved Hyperchloremia, resolved Lactic acidosis, resolved Hyperkalemia secondary to acute kidney injury, resolved Chronic: Hypertension Anxiety CODE STATUS: DO NOT RESUSCITATE/DO NOT INTUBATE DVT prophylaxis: SCDs, recommend resumption of Eliquis once cleared by general surgery to resume. Discussed with: patient, patient's daughters at bedside, general surgeon, event organizer, and cardiology [facility] AMBASSADOR Anticipated discharge date: Clinical course to determine. [facility]ticipated discharge place: [facility]. Patient seen independently by Nurse Practitioner. This document was prepared using [employer] dictation software. Please allow for errors in retail coverage merchandiser lead, while rare they do occur. Arjun Cunha NP rendered care for this patient independently, reviewed the findings and plan as documented in the note above. I did not physically speak with or examine the patient on this date. Objective - Vital Signs Vital signs: Vital Signs Temp 97.6 F 10/09/22 02:00 Pulse 90 10/09/22 02:00 Resp 17 10/09/22 02:00 BP 151/83 10/09/22 02:00 Pulse Ox 95 10/09/22 02:00 FiO2 Intake & Output 10/08/22 10/09/22 10/09/22 18:59 06:59 18:59 Intake Total 1080 Output Total 5 160 500 Balance 1075 -160 -500 Weight 58.967 kg Intake: Oral 1080 Output: Drainage 160 500 Abdomen 160 500 Urine/Stool Mix 5 Other: Voiding Method Diaper Incontinent # Voids 3 5 # Bowel Movements 1 - Labs CBC & Chem 7: 10/10/22 04:17 10/10/22 09:33 Labs: Abnormal Lab Results - Last 24 Hours (Table) 10/08/22 10/08/22 Range/Units 03:39 03:39 WBC 18.38 H (4.50-10.00) X 10*3/uL RBC 3.79 L (4.10-5.20) X 10*6/uL Hgb 11.8 L (12.0-15.0) g/dL Hct 36.6 L (37.2-46.3) % Potassium 3.0 L (3.5-5.5) mmol/L BUN/Creatinine Ratio 27.33 H (12.00-20.00) Ratio Glucose 114 H (70-110) mg/dL Calcium 7.7 L (8.7-10.3) mg/dL Total Protein 5.5 L (6.2-8.2) g/dL Albumin 2.8 L (3.8-4.9) g/dL Albumin/Globulin Ratio 1.04 L (1.60-3.17) g/dL
[2022-10-09 08:47] LABS: HCT 32.5 % (37.2-46.3); MCH 30.6 pg (27.0-32.0); MCHC 30.8 g/dL (32.0-37.0); MCV 99.4 fL (80.0-97.0); Mean Platelet Volume 11.2 fL (9.5-12.2); NRBC Per 100 WBC 0 /100 WBCS (0.0-0.0); Platelet Count 281 X 10*3/uL (140-440); RBC 3.27 X 10*6/uL (4.10-5.20); WBC 16.84 X 10*3/uL (4.50-10.00)
[2022-10-09 08:55] LABS: BUN/Creat Ratio 37.56 Ratio (12.00-20.00); Blood Urea Nitrogen 33.8 mg/dL (9.0-27.0); Calcium 7.9 mg/dL (8.7-10.3); Potassium 3.8 mmol/L (3.5-5.5)
[2022-10-09] MEDS ORDERED: atenoloL 50 MG TAB PO SCH (09:00)
[2022-10-09] MEDS ORDERED: MORPHINE SULFATE 4 MG/ML SYRINGE IV PRN (09:29)
[2022-10-09] MEDS ORDERED: DEXTROSE 5%-0.45% NACL 1,000 ML IV SCH (09:30)
[2022-10-09] MEDS: amLODIPine 10 MG TAB PO SCH (09:32)
[2022-10-09 09:49] LABS: Basophils # (A) 0.08 X 10*3/uL (0.00-0.10); Basophils % (A) 0.5 %; Eosinophils # (A) 0 X 10*3/uL (0.04-0.35); Eosinophils % (A) 0 %; Immature Grans, Automated 1.4 %; Lymphocytes # (A) 0.43 X 10*3/uL (0.90-5.00); Lymphocytes % (A) 2.6 %; Monocytes # (A) 2.25 X 10*3/uL (0.20-1.00); Monocytes % (A) 13.4 %; Neutrophils # (A) 13.85 X 10*3/uL (1.80-7.70); Neutrophils % (A) 82.1 %
--- NOTE | 2022-10-09 09:50 | P.PN ---
Subjective Progress Note Date: 10/09/22 History of present illness: This is a 72-year-old female patient, does not follow with the entry operator, cinthia ast medical history of hypertension, depression, obstructive sleep apnea with CPAP. Patient presented to the hospital on October 02 and was diagnosed with constipation, acute kidney injury, dehydration. Patient also treated for hypokalemia yesterday. We have been asked to evaluate the patient for abnormal EKG. EKG revealed atrial fibrillation and patient has subsequently converted back to sinus rhythm. This occurred last evening around 8 PM. Patient states that she sometimes feels some palpitations, no chest pain, no shortness of breath. Patient is on atenolol as a home medication and was given 1 dose of metoprolol 50 mg oral. Yesterday, potassium was 2.6 and was replaced. Repeat blood work is pending this morning. EKG atrial fibrillation with ventricular rate of 152. Repeat EKG this morning sinus rhythm at 85 bpm Repeat blood work reveals WBC 18.3, hemoglobin 11.8. Chemistry panel is pending. Home cardiac medications: Atenolol 25 mg daily Echocardiogram 02/2022: Normal left size and systolic function. Aortic sclerosis with mild aortic regurgitation. Trace mitral and tricuspid regurgitation. 10/09 Telemetry is sinus tachycardia in the 90s, yesterday afternoon it was determined the patient needs abdominal surgery, NG tube is in place, eliquis was placed on hold. Atenolol was increased yesterday 50 mg daily. WBC 16.8, hemoglobin 10, platelet count 281. Sodium 147, potassium 3.8, BUN 33 creatinine 0.9. Blood sugar 120. TSH and lipid panel remain pending. Echocardiogram pending Physical examination: Gen: This is a 72-year-old female. She is resting but appears to be comfortable. VS: reviewed HEENT: Head is atraumatic, normocephalic. Pupils equal, round. Sclerae is anicteric. NGT NECK: Supple. No JVD. LUNGS: Clear to auscultation. No wheezes or rhonchi. No intercostal retractions. HEART: Regular rate and rhythm. No murmur. ABDOMEN: Soft. No masses. No tenderness. EXTREMITIES: No pedal edema. No calf tenderness. NEUROLOGICAL: Patient is awake, alert and oriented. Assessment: New onset paroxysmal atrial fibrillation with RVR, currently in sinus rhythm Hypertension Surgery scheduled for exploratory laparotomy and lysis of adhesions Leukocytosis Plan: Continued increased dose of atenolol 50 mg daily and start patient on eliquis 5 mg twice daily once cleared by surgery Obtain lipid panel, TSH Obtain 2-D echocardiogram and Doppler study to assess cardiac structure and function Patient has no significant increase perioperative risk for planned abdominal surgery. We do expect patient to go in and out of atrial fibrillation during the perioperative time. Recommend the patient resume eliquis as soon as cleared by general surgery. Further recommendations to follow based upon clinical course Thank you kindly for this consultation. Nurse practitioner note has been reviewed, I agree with documented findings and plan of care. Patient was seen and examined. Objective - Vital Signs Vital signs: Vital Signs Temp 97.6 F 10/09/22 08:00 Pulse 92 10/09/22 08:00 Resp 19 10/09/22 08:00 BP 154/82 10/09/22 08:00 Pulse Ox 95 10/09/22 08:00 FiO2 Intake & Output 10/08/22 10/09/22 10/09/22 18:59 06:59 18:59 Intake Total 1080 Output Total 5 160 500 Balance 1075 -160 -500 Weight 58.967 kg Intake: Oral 1080 Output: Drainage 160 500 Abdomen 160 500 Urine/Stool Mix 5 Other: Voiding Method Diaper Incontinent # Voids 3 5 # Bowel Movements 1 - Labs CBC & Chem 7: 10/09/22 04:18 10/09/22 04:18 Labs: Abnormal Lab Results - Last 24 Hours (Table) 10/08/22 10/08/22 10/09/22 Range/Units 03:39 03:39 04:18 WBC 18.38 H 16.84 H (4.50-10.00) X 10*3/uL RBC 3.79 L 3.27 L (4.10-5.20) X 10*6/uL Hgb 11.8 L 10.0 L (12.0-15.0) g/dL Hct 36.6 L 32.5 L (37.2-46.3) % MCV 99.4 H (80.0-97.0) fL MCHC 30.8 L (32.0-37.0) g/dL Sodium (135-145) mmol/L Potassium 3.0 L (3.5-5.5) mmol/L Chloride (96-109) mmol/L BUN (9.0-27.0) mg/dL BUN/Creatinine Ratio 27.33 H (12.00-20.00) Ratio Glucose 114 H (70-110) mg/dL Calcium 7.7 L (8.7-10.3) mg/dL Total Protein 5.5 L (6.2-8.2) g/dL Albumin 2.8 L (3.8-4.9) g/dL Albumin/Globulin Ratio 1.04 L (1.60-3.17) g/dL 10/09/22 Range/Units 04:18 WBC (4.50-10.00) X 10*3/uL RBC (4.10-5.20) X 10*6/uL Hgb (12.0-15.0) g/dL Hct (37.2-46.3) % MCV (80.0-97.0) fL MCHC (32.0-37.0) g/dL Sodium 147 H (135-145) mmol/L Potassium (3.5-5.5) mmol/L Chloride 110 H (96-109) mmol/L BUN 33.8 H (9.0-27.0) mg/dL BUN/Creatinine Ratio 37.56 H (12.00-20.00) Ratio Glucose 120 H (70-110) mg/dL Calcium 7.9 L (8.7-10.3) mg/dL Total Protein (6.2-8.2) g/dL Albumin (3.8-4.9) g/dL Albumin/Globulin Ratio (1.60-3.17) g/dL
--- NOTE | 2022-10-09 10:42 | P.PN ---
Subjective Progress Note Date: 10/09/22 CHIEF COMPLAINT: Constipation HISTORY OF PRESENT ILLNESS: Patient had computed tomography scan abdomen and pelvis yesterday which showed evidence of a small bowel obstruction. Patient scheduled today for exploratory laparotomy with lysis of adhesions. Patient's daughters are at bedside. Questions were answered to the best of my ability. Patient has NG tube in place with 500 mL output. Patient is resting comfortably. Patient did receive 1 dose of Eliquis yesterday morning. Cardiology has cleared patient for surgery Afebrile. WBC 18 down to 16.84 Hgb 10.8 sodium is 147 potassium is 3.8 creatinine 0.9 PHYSICAL EXAM: VITAL SIGNS: Reviewed. GENERAL: Well-developed in no acute distress. HEENT: No sclera icterus. Extraocular movements grossly intact. Moist buccal mucosa. Head is atraumatic, normocephalic. ABDOMEN: Soft. Nondistended. Nontender. NEUROLOGIC: awake and alert. slightly confused ASSESSMENT: 1. Small bowel obstruction 2. Acute kidney injury resolved 3. Leukocytosis 4. Hypokalemia resolved PLAN: -Patient prescription for exploratory laparotomy with lysis of adhesions with Dr. Whitaker today -Continue NG tube for decompression -Keep patient nothing by mouth -Continue IV fluids -Continue supportive care Physician Butt Maker note has been reviewed by physician. Signing provider agrees with the documented findings, assessment, and plan of care. Objective - Vital Signs Vital signs: Vital Signs Temp 97.6 F 10/09/22 08:00 Pulse 92 10/09/22 08:00 Resp 19 10/09/22 08:00 BP 154/82 10/09/22 08:00 Pulse Ox 95 10/09/22 08:00 FiO2 Intake & Output 10/08/22 10/09/22 10/09/22 18:59 06:59 18:59 Intake Total 1080 Output Total 5 160 500 Balance 1075 -160 -500 Weight 58.967 kg Intake: Oral 1080 Output: Drainage 160 500 Abdomen 160 500 Urine/Stool Mix 5 Other: Voiding Method Diaper Incontinent # Voids 3 5 # Bowel Movements 1 - Labs CBC & Chem 7: 10/09/22 04:18 10/09/22 04:18 Labs: Abnormal Lab Results - Last 24 Hours (Table) 10/08/22 10/09/22 10/09/22 Range/Units 03:39 04:18 04:18 WBC 16.84 H (4.50-10.00) X 10*3/uL RBC 3.27 L (4.10-5.20) X 10*6/uL Hgb 10.0 L (12.0-15.0) g/dL Hct 32.5 L (37.2-46.3) % MCV 99.4 H (80.0-97.0) fL MCHC 30.8 L (32.0-37.0) g/dL Immature Gran # 0.23 H (0.00-0.04) X 10*3/uL Neutrophils # 13.85 H (1.80-7.70) X 10*3/uL Lymphocytes # 0.43 L (0.90-5.00) X 10*3/uL Monocytes # 2.25 H (0.20-1.00) X 10*3/uL Eosinophils # 0 L (0.04-0.35) X 10*3/uL Sodium 147 H (135-145) mmol/L Potassium 3.0 L (3.5-5.5) mmol/L Chloride 110 H (96-109) mmol/L BUN 33.8 H (9.0-27.0) mg/dL BUN/Creatinine Ratio 27.33 H 37.56 H (12.00-20.00) Ratio Glucose 114 H 120 H (70-110) mg/dL Calcium 7.7 L 7.9 L (8.7-10.3) mg/dL Total Protein 5.5 L (6.2-8.2) g/dL Albumin 2.8 L (3.8-4.9) g/dL Albumin/Globulin Ratio 1.04 L (1.60-3.17) g/dL
[2022-10-09 11:32] LABS: Glucose,Whole Blood 148 mg/dL (70-110)
[2022-10-09 12:30] LABS: Chol/HDL Ratio 4.16 Ratio; LDL Cholesterol,Calculated 72.9 mg/dL (0.0-131.0)
[2022-10-09] MEDS ORDERED: LACTATED RINGERS 1,000 ML IV ONE ×3 (13:14→16:07)
[2022-10-09] MEDS ORDERED: HEPARIN SODIUM,PORCINE 5,000 UNIT/ML 1 ML VIAL SQ ONE (13:56)
--- NOTE | 2022-10-09 14:03 | P.ANPRN ---
Procedure Note - Anesthesia - Invasive Line Right Arterial Line Time Out Performed: Yes Date of Procedure: 10/09/22 Time of Procedure: 13:50 Location of Patient: PreOp Preparation: Sterile Prep, Sterile Dressing Arterial Line Location: Radial Ultrasound Used: No Needle Guage: 20 Narrative: Central line placement per sterile protocol utilized.
[2022-10-09] MEDS ORDERED: ETOMIDATE 2 MG/ML 10 ML VIAL ONE (14:16)
[2022-10-09] MEDS ORDERED: ePHEDrine 50 MG/ML 1 ML VIAL ONE (14:16)
[2022-10-09] MEDS ORDERED: SUCCINYLCHOLINE CHLORIDE 200 MG/10 ML VIAL IV ONE (14:16)
[2022-10-09] MEDS ORDERED: PHENYLEPHRINE-0.9% NACL SYG 1,000 MCG/10 ML SYRINGE ONE (14:16)
[2022-10-09] MEDS ORDERED: LIDOCAINE 2% INJ 20 MG/ML (2 ML VIAL) ONE (14:16)
[2022-10-09] MEDS ORDERED: ROCURONIUM 10 MG/ML (5 ML VIAL) IV ONE (14:16)
[2022-10-09] MEDS ORDERED: fentaNYL (PF) 50 MCG/ML 2 ML AMP ONE (14:16)
[2022-10-09] MEDS ORDERED: metroNIDAZOLE-NS PMX 500 MG in SALINE 1 100ML.BAG IVPB STA (14:54)
[2022-10-09] MEDS: PARoxetine 20 MG TAB PO SCH (15:59)
[2022-10-09] MEDS: buPROPion XL 300 MG TAB.ER.24H PO SCH (15:59)
--- NOTE | 2022-10-09 16:46 | P.OP ---
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 She received general endotracheal tube anesthesia. Her abdomen was prepped and draped in usual sterile fashion. The abdomen appeared to be distended. The skin was incised in the midline. Left cautery used to divide the abdominal wall. The Bookwalter tract with wound. The small bowel appeared to be minimally dilated. The small bowel was then run from the ligament of Treitz to the terminal ileum. There is no obstruction seen. In mobilizing the small bowel there was evidence of ischemia of the left colon and splenic flexure area there was evidence of 3 separate perforated areas in this portion of the bowel. It was unclear what caused the ischemia. At this point the distal transverse colon was occluded with a hydroureter and then the left colon was mobilized by dividing the white line of Toldt's. The colon appeared to be fibrotic. The splenic flexure area was densely adhered to the spleen. It was then decided to divide the lower tail of the spleen and the with the specimen in order to remove the specimen. Using the Enseal device the spleen was divided and then using 0 Vicryl suture. The spleen was suture ligated. The distal transverse colon was then transected with a GI stapler. And then the omentum and mesentery of the transverse colon was divided with the Enseal device. The splenic flexure had been completely mobilized. And then the distal left colon was transected with a GI stapler. And then using Enseal device the mesentery of the bowel was divided. Once again appeared to be 2 areas of perforation in the distal transverse colon measuring approximately 2-1/2 cm diameter. And then in the left colon there was a longer segment with ischemia and bowel wall necrosis measured prostate 10 cm length.. The abdomen was then irrigated with 3 L of normal saline. Due to the bowel wall and off the colon there was very minimal spill of colonic contents. After adequate irrigation the colostomy was then brought up in the left upper quadrant. The fascia was then closed in looped #1 PDS suture. Skin was closed with parker. Several The Skin Were Created for Telfa Marcelino. The Colostomy Then Matured with 3-0 Vicryl Suture. Patient Remained Asymptomatic Insufflated and Was Sent to the ICU in Critical Condition.
[2022-10-09] MEDS ORDERED: HYDROmorphone 1 MG/ML 1 ML SYRINGE IVP PRN (16:48)
[2022-10-09] MEDS ORDERED: propofoL 100 ML IV ONE (16:56)
[2022-10-09] MEDS ORDERED: LACTATED RINGERS 1,000 ML IV SCH (17:00)
--- NOTE | 2022-10-09 17:21 | XR ---
EXAMINATION TYPE: XR chest 1V confirm line [facility] DATE OF EXAM: 10/09/2022 5:16 PM COMPARISON: Chest radiographs from 10/09/2022. TECHNIQUE: XR chest 1V confirm line [facility] Portable AP radiograph of the chest. CLINICAL INDICATION:Female, 72 years old with history of central line placement; FINDINGS: Lungs/Pleura: Prominent interstitial lung markings are seen scattered throughout the lungs with karla ening of the diaphragm and increased lucency of the lung apices. No evidence of focal consolidation, pneumothorax or pleural effusion. Pulmonary vascularity: Unremarkable. Heart/mediastinum: Cardiomediastinal silhouette is unremarkable. Musculoskeletal: Degenerative changes of the shoulder joints. Other findings: None Lines/Tubes: Endotracheal tube with distal tip 4.5 cm above the rachel. Nasogastric tube with its distal tip and side-port projecting under the diaphragm. Left central venous catheter with distal tip at the cavoatrial junction. IMPRESSION: No acute cardiopulmonary disease/process. Appropriate placement of left central line, stable support tubes. No pneumothorax. COPD changes.
[2022-10-09 17:23] LABS: ABG Base Excess -3.3 mmol/L; ABG HCO3 22 mmol/L (21-25); ABG PCO2 38 mmHg (35-45); ABG PH 7.37 (7.35-7.45); ABG PO2 337 mmHg (83-108); ABG TCO2 23 mmol/L (19-24)
[2022-10-09 17:24] LABS: Allen Test Performed? no
[2022-10-09] MEDS ORDERED: SODIUM CHLORIDE 0.9% 2,000 ML IV ONE ×2 (17:42→18:11)
[2022-10-09] MEDS ORDERED: LACTATED RINGERS 2,000 ML IV SCH (18:15)
[2022-10-09] MEDS ORDERED: NOREPINEPHRINE 8 MG in SODIUM CHLORIDE 0.9% 250 ML IV SCH (18:15)
[2022-10-09 19:20] LABS: Basophils % (A) 0 %; Eosinophils % (A) 0 %; HCT 25.5 % (34.0-46.0); Hypochromasia Slight; Lymphocytes % (A) 11 %; MCH 31.9 pg (25.0-35.0); MCHC 31.7 g/dL (31.0-37.0); MCV 100.4 fL (80.0-100.0); Monocytes # (A) 0.6 k/uL (0-1.0); Monocytes % (A) 7 %; Neutrophils % (A) 80 %; Platelet Count 240 k/uL (150-450); RBC 2.54 m/uL (3.80-5.40); RDW 13.6 % (11.5-15.5); WBC 8.7 k/uL (3.8-10.6)
[2022-10-09 19:24] LABS: HGB 8.1 gm/dL (11.4-16.0)
[2022-10-09 19:30] LABS: Albumin 1.4 g/dL (3.5-5.0); Potassium 3.6 mmol/L (3.5-5.1); Total Bilirubin 0.9 mg/dL (0.2-1.3); Total Protein 3.1 g/dL (6.3-8.2)
[2022-10-09] MEDS ORDERED: Potassium Replacement Protocol 1 EACH MISC MISCELLANE PRN (19:40)
[2022-10-09] MEDS: POTASSIUM CHLORIDE 10 MEQ in WATER FOR INJECTION 1 100ML.BAG IVPB SCH ×2 (19:57→22:07)
[2022-10-09 20:19] LABS: Glucose,Whole Blood 116 mg/dL (70-110)
[2022-10-09] MEDS ORDERED: FUROSEMIDE 10 MG/ML 10 ML VIAL IV STA (21:48)
[2022-10-09] MEDS ORDERED: ALBUMIN HUMAN 25% 50 ML in EMPTY BAG 1 BAG IVPB ONE (22:54)
[2022-10-09 23:12] LABS: Glucose,Whole Blood 97 mg/dL (70-110)
[2022-10-10] MEDS: ACETAMINOPHEN IV (For NPO) 1,000 MG in EMPTY BAG 1 BAG IVPB SCH ×3 (00:25→12:00)
[2022-10-10 04:11] LABS: Glucose,Whole Blood 113 mg/dL (70-110)
[2022-10-10 04:29] LABS: HGB 8.3 gm/dL (11.4-16.0); Hypochromasia Slight; MCH 31.7 pg (25.0-35.0); MCHC 31.9 g/dL (31.0-37.0); MCV 99.3 fL (80.0-100.0); Mean Platelet Volume 9.6; Platelet Count 284 k/uL (150-450); RBC 2.62 m/uL (3.80-5.40); RDW 13.8 % (11.5-15.5); WBC 15.6 k/uL (3.8-10.6)
[2022-10-10 04:46] LABS: Albumin 1.6 g/dL (3.5-5.0); Calcium 6.8 mg/dL (8.4-10.2); Magnesium 1.5 mg/dL (1.6-2.3); Potassium 3.8 mmol/L (3.5-5.1); Total Bilirubin 1.3 mg/dL (0.2-1.3); Total Protein 3.5 g/dL (6.3-8.2)
[2022-10-10] MEDS: MAGNESIUM SULFATE-D5W PMX 1 GM in DEXTROSE/WATER 1 100ML.BAG IVPB SCH ×2 (05:11→06:35)
[2022-10-10] MEDS: POTASSIUM CHLORIDE 10 MEQ in WATER FOR INJECTION 1 100ML.BAG IVPB SCH ×4 (05:11→11:33)
[2022-10-10 05:53] LABS: ABG Base Excess -4.3 mmol/L; ABG HCO3 21 mmol/L (21-25); ABG Oxygen Saturation 98.8 % (94-97); ABG PCO2 37 mmHg (35-45); ABG PH 7.37 (7.35-7.45); ABG PO2 132 mmHg (83-108); ABG TCO2 22 mmol/L (19-24); Allen Test Performed? Yes
--- NOTE | 2022-10-10 07:17 | P.PN ---
Subjective Progress Note Date: 10/10/22 PROGRESS NOTE The patient is a 72-year-old female who presented with symptoms of abdominal discomfort. She was seen by cardiology he cause of paroxysmal atrial fibrillation. She underwent bowel resection yesterday for bowel necrosis and placement of colostomy. She remains intubated and sedated. Her blood pressure is on the low side. She continues to be in sinus mechanism without any episodes of atrial fibrillation. She has no prior history of ischemic heart disease according to the records. She is on norepinephrine this morning. Medications: Amlodipine 10 mg daily, atenolol 50 mg daily, Flagyl, Zosyn PHYSICAL EXAMINATION: Blood pressure 94/50 heart rate 80, intubated and sedated LUNGS: Clear to auscultation HEART: Regular rate and rhythm, S1, S2. No S3. systolic ejection murmur ABDOMEN: Soft, colostomy in place, no organomegaly, no bowel sounds EXTREMETIES: No edema LAB: WBC 15.6, hemoglobin 8.3, BUN 30, creatinine 1.19. IMPRESSION: 1. Status post bowel resection for bowel necrosis and colostomy placement 2. Paroxysmal atrial fibrillation, maintaining sinus mechanism 3. History of hypertension 4. Hypotension post surgery with acute renal injury PLAN: 1. Stop amlodipine and clonidine 2. Change beta gabi to IV metoprolol 3. Review echocardiogram 4. Follow renal functions 5. Depending on her progress further recommendations will be made Objective - Vital Signs Vital signs: Vital Signs Temp 99.8 F H 10/10/22 04:00 Pulse 81 10/10/22 07:00 Resp 19 10/10/22 07:00 BP 94/54 10/10/22 07:00 Pulse Ox 96 10/10/22 07:00 FiO2 40 10/10/22 06:00 Intake & Output 10/09/22 10/10/22 10/10/22 18:59 06:59 18:59 Intake Total 4304.866 3550.401 250 Output Total 950 485 15 Balance 3354.866 3065.401 235 Weight 70.7 kg Intake: IV 4300 1800 150 Lactated Ringers 2,000 ml 2000 @ 999 mls/hr IV .Q2H1M [facility] Rx#:[id number] Sodium Chloride 0.9% 1, 1800 150 000 ml @ 150 mls/hr IV . Q6H40M [facility] Rx#:[id number] Intake, IV Titration 4.866 1750.401 100 Amount Magnesium Sulfate-D5w Pmx 100 100 1 gm In Dextrose/Water 1 100ml.bag @ 100 mls/hr IVPB Q1H COUNTS INCLUDE 234 BEDS AT THE [facility] Rx#: [id number] Norepinephrine 8 mg In 88.980 Sodium Chloride 0.9% 250 ml @ 0.03 MCG/KG/MIN 3. 423 mls/hr IV .Q24H [facility] Rx#:[id number] Potassium Chloride 10 meq 200 In Water For Injection 1 100ml.bag @ 100 mls/hr IVPB Q1H COUNTS INCLUDE 234 BEDS AT THE [facility] Rx#: [id number] Potassium Chloride 10 meq 200 In Water For Injection 1 100ml.bag @ 100 mls/hr IVPB Q1H [facility] Rx#: [id number] Sodium Chloride 0.9% 2, 1000 000 ml @ 999 mls/hr IV . Q2H1M [facility] Rx#:[id number] propofoL 1,000 mg In 4.866 161.421 Empty Bag 1 bag @ 15 MCG/ KG/MIN 5.307 mls/hr IV . Q14I25U COUNTS INCLUDE 234 BEDS AT THE [facility] Rx#:[id number] Output: Gastric Drainage 150 Drainage 550 Abdomen 550 Urine 300 285 15 Stool 50 Estimated Blood Loss 100 Other: Voiding Method Indwelling Catheter Indwelling Catheter # Voids 0 0 ABP, PAP, CO, CI - Last Documented Arterial Blood Pressure 83/48 - Labs CBC & Chem 7: 10/10/22 04:17 10/10/22 04:17 Labs: Abnormal Lab Results - Last 24 Hours (Table) 10/08/22 10/09/22 10/09/22 Range/Units 03:39 04:18 04:18 WBC 16.84 H (4.50-10.00) X 10*3/uL RBC 3.27 L (4.10-5.20) X 10*6/uL Hgb 10.0 L (12.0-15.0) g/dL Hct 32.5 L (37.2-46.3) % MCV 99.4 H (80.0-97.0) fL MCHC 30.8 L (32.0-37.0) g/dL Immature Gran # 0.23 H (0.00-0.04) X 10*3/uL Neutrophils # 13.85 H (1.80-7.70) X 10*3/uL Lymphocytes # 0.43 L (0.90-5.00) X 10*3/uL Monocytes # 2.25 H (0.20-1.00) X 10*3/uL Eosinophils # 0 L (0.04-0.35) X 10*3/uL ABG pO2 (83-108) mmHg ABG O2 Saturation (94-97) % Sodium 147 H (135-145) mmol/L Chloride 110 H (96-109) mmol/L Carbon Dioxide (22-30) mmol/L BUN 33.8 H (9.0-27.0) mg/dL Creatinine (0.52-1.04) mg/dL BUN/Creatinine Ratio 37.56 H (12.00-20.00) Ratio Glucose 120 H (70-110) mg/dL POC Glucose (mg/dL) (70-110) mg/dL Calcium 7.9 L (8.7-10.3) mg/dL Magnesium (1.6-2.3) mg/dL Alkaline Phosphatase (38-126) U/L Total Protein (6.3-8.2) g/dL Albumin (3.5-5.0) g/dL HDL Cholesterol 31.70 L (40.00-60.00) mg/dL 10/09/22 10/09/22 10/09/22 Range/Units 11:30 17:21 18:59 WBC (4.50-10.00) X 10*3/uL RBC 2.54 L (4.10-5.20) X 10*6/uL Hgb 8.1 L D (12.0-15.0) g/dL Hct 25.5 L (37.2-46.3) % MCV 100.4 H (80.0-97.0) fL MCHC (32.0-37.0) g/dL Immature Gran # (0.00-0.04) X 10*3/uL Neutrophils # (1.80-7.70) X 10*3/uL Lymphocytes # (0.90-5.00) X 10*3/uL Monocytes # (0.20-1.00) X 10*3/uL Eosinophils # (0.04-0.35) X 10*3/uL ABG pO2 337 H (83-108) mmHg ABG O2 Saturation 100.0 H (94-97) % Sodium (135-145) mmol/L Chloride (96-109) mmol/L Carbon Dioxide (22-30) mmol/L BUN (9.0-27.0) mg/dL Creatinine (0.52-1.04) mg/dL BUN/Creatinine Ratio (12.00-20.00) Ratio Glucose (70-110) mg/dL POC Glucose (mg/dL) 148 H (70-110) mg/dL Calcium (8.7-10.3) mg/dL Magnesium (1.6-2.3) mg/dL Alkaline Phosphatase (38-126) U/L Total Protein (6.3-8.2) g/dL Albumin (3.5-5.0) g/dL HDL Cholesterol (40.00-60.00) mg/dL 10/09/22 10/09/22 10/10/22 Range/Units 18:59 20:17 04:10 WBC (4.50-10.00) X 10*3/uL RBC (4.10-5.20) X 10*6/uL Hgb (12.0-15.0) g/dL Hct (37.2-46.3) % MCV (80.0-97.0) fL MCHC (32.0-37.0) g/dL Immature Gran # (0.00-0.04) X 10*3/uL Neutrophils # (1.80-7.70) X 10*3/uL Lymphocytes # (0.90-5.00) X 10*3/uL Monocytes # (0.20-1.00) X 10*3/uL Eosinophils # (0.04-0.35) X 10*3/uL ABG pO2 (83-108) mmHg ABG O2 Saturation (94-97) % Sodium (135-145) mmol/L Chloride 115 H (96-109) mmol/L Carbon Dioxide (22-30) mmol/L BUN 27 H (9.0-27.0) mg/dL Creatinine (0.52-1.04) mg/dL BUN/Creatinine Ratio (12.00-20.00) Ratio Glucose 106 H (70-110) mg/dL POC Glucose (mg/dL) 116 H 113 H (70-110) mg/dL Calcium 7.0 L (8.7-10.3) mg/dL Magnesium (1.6-2.3) mg/dL Alkaline Phosphatase (38-126) U/L Total Protein 3.1 L (6.3-8.2) g/dL Albumin 1.4 L (3.5-5.0) g/dL HDL Cholesterol (40.00-60.00) mg/dL 10/10/22 10/10/22 10/10/22 Range/Units 04:17 04:17 05:50 WBC 15.6 H (4.50-10.00) X 10*3/uL RBC 2.62 L (4.10-5.20) X 10*6/uL Hgb 8.3 L (12.0-15.0) g/dL Hct 26.0 L (37.2-46.3) % MCV (80.0-97.0) fL MCHC (32.0-37.0) g/dL Immature Gran # (0.00-0.04) X 10*3/uL Neutrophils # (1.80-7.70) X 10*3/uL Lymphocytes # (0.90-5.00) X 10*3/uL Monocytes # (0.20-1.00) X 10*3/uL Eosinophils # (0.04-0.35) X 10*3/uL ABG pO2 132 H (83-108) mmHg ABG O2 Saturation 98.8 H (94-97) % Sodium (135-145) mmol/L Chloride 116 H (96-109) mmol/L Carbon Dioxide 21 L (22-30) mmol/L BUN 30 H (9.0-27.0) mg/dL Creatinine 1.19 H (0.52-1.04) mg/dL BUN/Creatinine Ratio (12.00-20.00) Ratio Glucose 111 H (70-110) mg/dL POC Glucose (mg/dL) (70-110) mg/dL Calcium 6.8 L (8.7-10.3) mg/dL Magnesium 1.5 L (1.6-2.3) mg/dL Alkaline Phosphatase 35 L (38-126) U/L Total Protein 3.5 L (6.3-8.2) g/dL Albumin 1.6 L (3.5-5.0) g/dL HDL Cholesterol (40.00-60.00) mg/dL Microbiology - Last 24 Hours (Table) 10/08/22 22:11 Blood Culture - Preliminary Blood No Growth after 24 hours 10/08/22 13:13 Blood Culture - Preliminary Blood No Growth after 24 hours
--- NOTE | 2022-10-10 07:29 | XR ---
EXAMINATION TYPE: XR chest 1V portable DATE OF EXAM: 10/10/2022 Comparison: 10/09/2022 Clinical History: 72-year-old female Tube placement Findings: ET tube satisfactory. NG tube courses below the diaphragm. Heart normal size. Patient rotated towards the right cardiomediastinal contours. Asymmetric elevation of the right hemidiaphragm is redemonstra chelo. Old fracture deformities lateral right-sided ribs. Hyperinflation. Mild patchy retrocardiac/medi al left basilar opacity remains. Left subclavian CVC tip at the lower SVC. Heart upper limits of norm al in size. Impression: 1. COPD. Similar asymmetric elevation right hemidiaphragm if concern for hemidiaphragmatic paralysis, a fluoroscopic sniff test could be performed. 2. Mild patchy atelectasis or infiltrate at the medial left base persists.
[2022-10-10] MEDS ORDERED: METOPROLOL TARTRATE 5 MG/5 ML VIAL IVP SCH (07:30)
--- NOTE | 2022-10-10 08:05 | P.CNPUL ---
History of Present Illness Consult date: 10/09/22 Chief complaint: bowel necrosis History of present illness: This is a 72 year old female patient who was brought into the intensive care unit after the patient underwent a bowel surgery. The patient was taken to the operating room suspected to have a small bowel obstruction. 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 The patient was kept intubated on a mechanical ventilator. The patient was brought into the ICU and at this point in time the patient is sedated on propofol running at 35 mcg/kg/m. Immediately, a triple Was inserted and the patient was started on IV fluids and the patient was borderline hypotensive and had a low urine output. The patient is currently receiving a second liter of normal saline bolus. Pressors will be used if needed. Meanwhile, the patient was kept on a mechanical ventilator. She is currently on assist control rate of 14, tidal volume of 400, FiO2 has been weaned down to 50% and the patient is currently on a PEEP of 5. Chest x-ray shows elevation of the right hemidiaphragm, thoracic kyphoscoliosis. Decubitus at a good location. Left subclavian triple-lumen catheter is in place. Motor the patient presented to the hospital because of abdominal pain, diffuse essentially some nausea and emesis. She had an acute kidney injury which improved with fluids. She had leukocytosis with a WBC count of 17 and the time of admission. Blood work from this morning showed some mild hypernatremia. Renal function has improved and the creatinine was down to 0.9, serum bicarb was 23. The patient arrived today ICU hypothermic. She was also having a low urine output. She had an arterial line catheter in place. NG tube was also in place. The patient is currently with IV Zosyn. The patient had a blood given that showed adequate oxygenation. PH was 7.37 with a pCO2 of 38. Oxygenation was adequate pO2 of about 300. Review of Systems ROS unobtainable: due to endotracheal tube Past Medical History Past Medical History: Cancer, Hypertension, Osteoarthritis (OA), Sleep Apnea/CPAP/BIPAP, Thyroid Disorder Additional Past Medical History / Comment(s): C-PAP MACHINE , PAST HX OF HTN, SCOLIOSIS, BACK PAIN, SQUAMOUS CELL SKIN CANCER, Raynauds, back fracture History of Any Multi-Drug Resistant Organisms: None Reported Past Surgical History: Back Surgery, Bladder Surgery, Hysterectomy, Joint Replacement Additional Past Surgical History / Comment(s): LEFT ELBOW FX, t12 fracture surgery on 12/21/21, left hip replaced Past Anesthesia/Blood Transfusion Reactions: Postoperative Nausea & Vomiting (PONV) Additional Past Anesthesia/Blood Transfusion Reaction / Comment(s): no problems with blood transfusions Past Psychological History: Anxiety, Depression Smoking Status: Former smoker Past Alcohol Use History: Occasional Additional Past Alcohol Use History / Comment(s): SMOKED 1 YEAR IN HER LATE Past Drug Use History: Marijuana Additional Drug Use History / Comment(s): occastional maijuana use, last time being in late december/early january 2022. - Past Family History Brother(s) Family Medical History: Cancer Additional Family Medical History / Comment(s): PROSTATE CANCER, parkinsons Father Family Medical History: Myocardial Infarction (RI) Additional Family Medical History / Comment(s): of RI at 59 Mother Family Medical History: Congestive Heart Failure (CHF), Osteoarthritis (OA) Medications and Allergies Home Medications Medication Instructions Recorded Confirmed Type PARoxetine HCL [Paxil] 40 mg PO DAILY@1500 03/23/19 10/02/22 History buPROPion HCL [Wellbutrin XL] 300 mg PO DAILY@1500 03/23/19 10/02/22 History Rizatriptan Benzoate [Rizatriptan] 10 mg PO DAILY PRN 02/12/22 10/02/22 History atenoloL 25 mg PO DAILY@1500 10/02/22 10/02/22 History Allergies Allergy/AdvReac Type Severity Reaction Status Date / Time erythromycin base AdvReac Unknown Abdominal Verified 10/02/22 16:18 Pain Physical Exam Vitals: Vital Signs Temp Pulse Pulse Pulse Resp BP BP 10/09/22 19:00 84 14 94/52 10/09/22 18:45 84 14 94/52 10/09/22 18:30 79 14 94/52 10/09/22 18:15 78 14 94/52 10/09/22 18:00 74 14 10/09/22 17:45 78 14 122/56 10/09/22 17:30 79 14 122/56 10/09/22 17:24 10/09/22 17:15 80 14 122/56 10/09/22 17:12 81 14 122/56 10/09/22 16:51 10/09/22 16:46 10/09/22 13:08 99.2 F 83 83 22 150/70 10/09/22 08:00 97.6 F 92 19 154/82 10/09/22 02:00 97.6 F 90 17 151/83 10/08/22 20:00 98.5 F 89 18 139/79 Pulse Ox FiO2 10/09/22 19:00 99 10/09/22 18:45 100 10/09/22 18:30 100 50 10/09/22 18:15 10/09/22 18:00 98 10/09/22 17:45 100 10/09/22 17:30 98 10/09/22 17:24 50 10/09/22 17:15 10/09/22 17:12 97 10/09/22 16:51 100 10/09/22 16:46 100 10/09/22 13:08 95 10/09/22 08:00 95 10/09/22 02:00 95 10/08/22 20:00 95 Intake and Output 10/09/22 10/09/22 10/09/22 06:59 14:59 22:59 Intake Total 1000 3454.866 Output Total 160 900 50 Balance -197 644 8674.866 Intake: IV 1000 3450 Lactated Ringers 2,000 ml 2000 @ 999 mls/hr IV .Q2H1M [facility] Rx#:[id number] Sodium Chloride 0.9% 1, 150 000 ml @ 150 mls/hr IV . Q6H40M [facility] Rx#:[id number] Intake, IV Titration 4.866 Amount propofoL 1,000 mg In 4.866 Empty Bag 1 bag @ 15 MCG/ KG/MIN 5.307 mls/hr IV . [id number] [facility] Rx#:[id number] Output: Drainage 160 500 50 Abdomen 160 500 50 Urine 300 0 Estimated Blood Loss 100 Other: Voiding Method Indwelling Catheter # Voids 5 0 ABP, PAP, CO, CI - Last 8 Hours Arterial Blood Pressure 99/46 Arterial Blood Pressure 90/44 Arterial Blood Pressure 98/45 Arterial Blood Pressure 73/38 Arterial Blood Pressure 83/40 Arterial Blood Pressure 102/48 Arterial Blood Pressure 100/48 Arterial Blood Pressure 90/66 Arterial Blood Pressure 109/59 Gen. appearance the patient is calm and comfortable, sedated at this point. Orogastric and orotracheal tube are both in place Head exam was generally normal. There was no scleral icterus or corneal arcus. Mucous membranes were moist. Neck was supple and without jugular venous distension, thyromegaly, or carotid bruits. Carotids were easily palpable bilaterally. There was no adenopathy. Lungs were clear to auscultation and percussion, and with normal diaphragmatic excursion. No wheezes or rales were noted. The patient is an obvious clinical lumbar kyphoscoliosis Cardiac exam revealed the PMI to be normally situated and sized. The rhythm was regular and no extrasystoles were noted during several minutes of auscultation. The first and second heart sounds were normal and physiologic splitting of the second heart sound was noted. There were no murmurs, rubs, clicks, or gallops. Abdomen is soft and the patient's surgical one-sided striking and intact. No direct tenderness. Bowel sounds are hypoactive. No rebound tenderness. No guarding. Examination of the extremities revealed easily palpable radial, femoral and pedal pulses. There was no cyanosis, clubbing or edema. Examination of the skin revealed no evidence of significant rashes, suspicious appearing nevi or other concerning lesions. Neurologically, the patient is sedated, arousable, moving all 4 extremities, grimacing to painful stimulation. Results - Laboratory Findings CBC and BMP: 10/10/22 04:17 10/10/22 04:17 ABG ABG pH 7.37 (7.35-7.45) 10/09/22 17:21 ABG pCO2 38 mmHg (35-45) 10/09/22 17:21 ABG pO2 337 mmHg (83-108) H 10/09/22 17:21 ABG O2 Saturation 100.0 % (94-97) H 10/09/22 17:21 Abnormal lab findings: Abnormal Labs 10/02/22 10/02/22 10/02/22 13:22 13:22 13:22 WBC 17.2 H RBC Hgb Hct MCV MCHC MPV Immature Gran # Neutrophils # Neutrophils # (Manual) 14.70 H Lymphocytes # Lymphocytes # (Manual) 0.52 L Monocytes # Monocytes # (Manual) 1.89 H Eosinophils # Metamyelocytes # (Man) 0.17 H ABG pO2 ABG O2 Saturation Sodium 135 L Potassium 5.3 H Chloride Carbon Dioxide BUN 61 H Creatinine 2.37 H Est GFR (CKD-EPI)AfAm Est GFR (CKD-EPI)NonAf BUN/Creatinine Ratio Glucose 145 H POC Glucose (mg/dL) Plasma Lactic Acid Johann 2.9 H* Calcium 8.0 L Alkaline Phosphatase 305 H Total Protein 6.0 L Albumin Albumin/Globulin Ratio HDL Cholesterol Lipase 18 L Urine Appearance Urine Protein Urine Bilirubin Amorphous Sediment 10/02/22 10/03/22 10/03/22 15:51 05:15 05:15 WBC 11.9 H RBC 3.47 L Hgb 11.2 L Hct MCV MCHC MPV Immature Gran # Neutrophils # Neutrophils # (Manual) Lymphocytes # Lymphocytes # (Manual) Monocytes # Monocytes # (Manual) Eosinophils # Metamyelocytes # (Man) ABG pO2 ABG O2 Saturation Sodium Potassium Chloride Carbon Dioxide 18.9 L BUN 65.4 H Creatinine 2.3 H Est GFR (CKD-EPI)AfAm 24.0 L Est GFR (CKD-EPI)NonAf 20.7 L BUN/Creatinine Ratio 28.94 H Glucose POC Glucose (mg/dL) Plasma Lactic Acid Johann Calcium 7.6 L Alkaline Phosphatase Total Protein Albumin Albumin/Globulin Ratio HDL Cholesterol Lipase Urine Appearance Cloudy H Urine Protein 1+ H Urine Bilirubin 1+ H Amorphous Sediment Few H 10/04/22 10/04/22 10/07/22 05:11 05:11 22:50 WBC 10.06 H 17.8 H RBC 3.25 L 3.74 L Hgb 10.1 L Hct 32.5 L MCV 100.0 H MCHC 31.1 L MPV 12.5 H Immature Gran # Neutrophils # 8.53 H Neutrophils # (Manual) 15.80 H Lymphocytes # 0.32 L Lymphocytes # (Manual) Monocytes # 1.12 H Monocytes # (Manual) Eosinophils # 0 L Metamyelocytes # (Man) 0.18 H ABG pO2 ABG O2 Saturation Sodium Potassium Chloride 112 H Carbon Dioxide 18.1 L BUN 52.4 H Creatinine Est GFR (CKD-EPI)AfAm 39.4 L Est GFR (CKD-EPI)NonAf 34.0 L BUN/Creatinine Ratio 34.93 H Glucose 127 H POC Glucose (mg/dL) Plasma Lactic Acid Johann Calcium 8.3 L Alkaline Phosphatase Total Protein Albumin Albumin/Globulin Ratio HDL Cholesterol Lipase Urine Appearance Urine Protein Urine Bilirubin Amorphous Sediment 10/07/22 10/08/22 10/08/22 22:50 03:39 03:39 WBC 18.38 H RBC 3.79 L Hgb 11.8 L Hct 36.6 L MCV MCHC MPV Immature Gran # Neutrophils # Neutrophils # (Manual) Lymphocytes # Lymphocytes # (Manual) Monocytes # Monocytes # (Manual) Eosinophils # Metamyelocytes # (Man) ABG pO2 ABG O2 Saturation Sodium Potassium 2.6 L* 3.0 L Chloride Carbon Dioxide BUN 23 H Creatinine Est GFR (CKD-EPI)AfAm Est GFR (CKD-EPI)NonAf BUN/Creatinine Ratio 27.33 H Glucose 133 H 114 H POC Glucose (mg/dL) Plasma Lactic Acid Johann Calcium 7.5 L 7.7 L Alkaline Phosphatase Total Protein 5.5 L Albumin 2.8 L Albumin/Globulin Ratio 1.04 L HDL Cholesterol Lipase Urine Appearance Urine Protein Urine Bilirubin Amorphous Sediment 10/08/22 10/09/22 10/09/22 03:39 04:18 04:18 WBC 16.84 H RBC 3.27 L Hgb 10.0 L Hct 32.5 L MCV 99.4 H MCHC 30.8 L MPV Immature Gran # 0.23 H Neutrophils # 13.85 H Neutrophils # (Manual) Lymphocytes # 0.43 L Lymphocytes # (Manual) Monocytes # 2.25 H Monocytes # (Manual) Eosinophils # 0 L Metamyelocytes # (Man) ABG pO2 ABG O2 Saturation Sodium 147 H Potassium Chloride 110 H Carbon Dioxide BUN 33.8 H Creatinine Est GFR (CKD-EPI)AfAm Est GFR (CKD-EPI)NonAf BUN/Creatinine Ratio 37.56 H Glucose 120 H POC Glucose (mg/dL) Plasma Lactic Acid Johann Calcium 7.9 L Alkaline Phosphatase Total Protein Albumin Albumin/Globulin Ratio HDL Cholesterol 31.70 L Lipase Urine Appearance Urine Protein Urine Bilirubin Amorphous Sediment 10/09/22 10/09/22 11:30 17:21 WBC RBC Hgb Hct MCV MCHC MPV Immature Gran # Neutrophils # Neutrophils # (Manual) Lymphocytes # Lymphocytes # (Manual) Monocytes # Monocytes # (Manual) Eosinophils # Metamyelocytes # (Man) ABG pO2 337 H ABG O2 Saturation 100.0 H Sodium Potassium Chloride Carbon Dioxide BUN Creatinine Est GFR (CKD-EPI)AfAm Est GFR (CKD-EPI)NonAf BUN/Creatinine Ratio Glucose POC Glucose (mg/dL) 148 H Plasma Lactic Acid Johann Calcium Alkaline Phosphatase Total Protein Albumin Albumin/Globulin Ratio HDL Cholesterol Lipase Urine Appearance Urine Protein Urine Bilirubin Amorphous Sediment - Diagnostic Findings Chest x-ray: image reviewed Assessment and Plan Plan: Bowel necrosis, status post exploratory laparotomy, left colectomy and takedown of the splenic flexure with partial splenectomy. The patient is postoperative day #0 Acute abdomen secondary to above Acute leukocytosis secondary to above Acute respiratory failure, the patient was non-hypoxic, not hypercapnic and the patient was kept intubated following his surgery Hypotension, likely secondary to abdominal sepsis versus intravascular depletion. Patient being resuscitated fluids. CVP is low at this point in time. The patient is being bolused with normal saline and pressors may be needed. Patient is also covered with IV Zosyn Severe thoracic kyphoscoliosis History of obstructive sleep apnea History of squamous cell carcinoma of the skin Hypothyroidism Hypertension Degenerative arthritis Plan Continue ventilator support and the necessary ventilator changes will be done. The patient will be weaned off on her FiO2. Oxygen patient is stable for now. Monitor CVP and continue with fluid boluses. Use pressors if needed. Monitor urine output. Keep the patient sedated with propofol Continue IV propofol Continue patient nothing by mouth Continue IV Zosyn IV Protonix Heparin subcu for DVT prophylaxis Condition is critical and we'll continue to follow. A triple lumen catheter was established. We'll continue to follow. Time with Patient: Greater than 30
--- NOTE | 2022-10-10 08:07 | P.PCN ---
Date of Procedure: 10/10/22 Preoperative Diagnosis: bowel necrosis Postoperative Diagnosis: same Procedure(s) Performed: central line Anesthesia: local Surgeon: Valentina Rogers Estimated Blood Loss (ml): 0 Pathology: other Condition: critical Disposition: ICU Operative Findings: Indication: Hemodynamic monitoring/Intravenous access. A time-out was completed verifying correct patient, procedure, site, positioning, and implant(s) or special equipment if applicable. The patient was placed in a dependent position appropriate for central line placement based on the vein to be cannulated. The patient s left shoulder was prepped and draped in sterile fashion. 1% Lidocaine was used to anesthetize the surrounding skin area. A triple lumen 9F Cordis catheter was introduced into the left subclavian vein using Seldinger technique. The catheter was threaded smoothly over the guide wire and appropriate blood return was obtained. Each lumen of the catheter was evacuated of air and flushed with sterile saline. The catheter was then sutured in place to the skin and a sterile dressing applied. Perfusion to the extremity distal to the point of catheter insertion was checked and found to be adequate. The patient tolerated the procedure well and there were no complications.
[2022-10-10] MEDS ORDERED: SODIUM CHLORIDE 0.9% 2,000 ML IV ONE (08:25)
[2022-10-10] MEDS: PIPERACILLIN-TAZOBACTAM 3.375 GM in SODIUM CHLORIDE 0.9% 100 ML IVPB SCH ×2 (08:49→15:42)
[2022-10-10] MEDS: SODIUM CHLORIDE 0.9% 1,000 ML IV SCH ×3 (08:51→15:27)
[2022-10-10] MEDS ORDERED: PANTOPRAZOLE 40 MG/10 ML VIAL IVP SCH (09:00)
[2022-10-10 09:26] LABS: Glucose,Whole Blood 129 mg/dL (70-110)
[2022-10-10 09:57] LABS: Potassium 3.8 mmol/L (3.5-5.1)
[2022-10-10] MEDS ORDERED: Potassium Replacement Protocol 1 EACH MISC MISCELLANE PRN (10:08)
[2022-10-10 10:26] VITALS: BMI 23.0
--- NOTE | 2022-10-10 11:16 | P.PN ---
Subjective Progress Note Date: 10/10/22 This is a 72 year old female patient who was brought into the intensive care unit after the patient underwent a bowel surgery. The patient was taken to the operating room suspected to have a small bowel obstruction. 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 The patient was kept intubated on a mechanical ventilator. The patient was brought into the ICU and at this point in time the patient is sedated on propofol running at 35 mcg/kg/m. Immediately, a triple Was inserted and the patient was started on IV fluids and the patient was borderline hypotensive and had a low urine output. The patient is currently receiving a second liter of normal saline bolus. Pressors will be used if needed. Meanwhile, the patient was kept on a mechanical ventilator. She is currently on assist control rate of 14, tidal volume of 400, FiO2 has been weaned down to 50% and the patient is currently on a PEEP of 5. Chest x-ray shows elevation of the right hemidiaphragm, thoracic kyphoscoliosis. Decubitus at a good location. Left subclavian triple-lumen catheter is in place. Motor the patient presented to the hospital because of abdominal pain, diffuse e ssentially some nausea and emesis. She had an acute kidney injury which improved with fluids. She had leukocytosis with a WBC count of 17 and the time of admission. Blood work from this morning showed some mild hypernatremia. Renal function has improved and the creatinine was down to 0.9, serum bicarb was 23. The patient arrived today ICU hypothermic. She was also having a low urine output. She had an arterial line catheter in place. NG tube was also in place. The patient is currently with IV Zosyn. The patient had a blood given that showed adequate oxygenation. PH was 7.37 with a pCO2 of 38. Oxygenation was adequate pO2 of about 300. On today's evaluation of 10/10/2022, seeing the patient for a follow-up. The patient was intubated on a mechanical ventilator. Overnight, the patient was hypotensive with a low CVP. The patient received a total of 8 L of normal saline and the patient received 2 doses of IV albumin all 0.5 g. The patient was also placed on pressors and the patient is currently on norepinephrine running at 0.1 mcg/kg/m. Urine output is in order of 15 2 20 mL an hour. Overall fluid balance is +7 L over the past 24 hours. The patient is sedated on propofol which is running at 40 mcg/kg/m. Current CVP is at 4. The patient is on assist-control mode of mechanical ventilation at the rate of 14, tidal volume of 400, FiO2 of 40% with a PEEP of 5. Blood gas showed a pH of 7.37 with a pCO2 of 37 and pO2 of 132 and the patient has a sodium level of 141 with a BUN of 30 and a creatinine of 1.1. WBC count of 15.6 with a hemoglobin of 8.3 and a platelet count of 284. REID drain has put out around 50 mL since surgery. The patient is currently on a combination of Zosyn and normal saline is running at the rate of 150 mL an hour as maintenance. Inspection of the colostomy shows that the edges of the colostomy will is somewhat necrotic. REID drain is in place. Surgical wound is showing some limited amount of serous drainage. Cardiac rhythm is sinus for now. Objective - Vital Signs Vital signs: Vital Signs Temp 99.8 F H 10/10/22 04:00 Pulse 81 10/10/22 07:00 Resp 19 10/10/22 07:00 BP 94/54 10/10/22 07:00 Pulse Ox 96 10/10/22 07:00 FiO2 40 10/10/22 08:14 Intake & Output 10/09/22 10/10/22 10/10/22 18:59 06:59 18:59 Intake Total 4304.866 3550.401 261.809 Output Total 950 485 15 Balance 3354.866 3065.401 246.809 Weight 70.7 kg Intake: IV 4300 1800 150 Lactated Ringers 2,000 ml 2000 @ 999 mls/hr IV .Q2H1M [facility] Rx#:[id number] Sodium Chloride 0.9% 1, 1800 150 000 ml @ 150 mls/hr IV . Q6H40M [facility] Rx#:[id number] Intake, IV Titration 4.866 1750.401 111.809 Amount Magnesium Sulfate-D5w Pmx 100 100 1 gm In Dextrose/Water 1 100ml.bag @ 100 mls/hr IVPB Q1H [facility] Rx#: [id number] Norepinephrine 8 mg In 88.980 11.809 Sodium Chloride 0.9% 250 ml @ 0.03 MCG/KG/MIN 3. 423 mls/hr IV .Q24H [facility] Rx#:[id number] Potassium Chloride 10 meq 200 In Water For Injection 1 100ml.bag @ 100 mls/hr IVPB Q1H [facility] Rx#: [id number] Potassium Chloride 10 meq 200 In Water For Injection 1 100ml.bag @ 100 mls/hr IVPB Q1H [facility] Rx#: [id number] Sodium Chloride 0.9% 2, 1000 000 ml @ 999 mls/hr IV . Q2H1M [facility] Rx#:[id number] propofoL 1,000 mg In 4.866 161.421 Empty Bag 1 bag @ 15 MCG/ KG/MIN 5.307 mls/hr IV . [id number] [facility] Rx#:[id number] Output: Gastric Drainage 150 Drainage 550 Abdomen 550 Urine 300 285 15 Stool 50 Estimated Blood Loss 100 Other: Voiding Method Indwelling Catheter Indwelling Catheter # Voids 0 0 ABP, PAP, CO, CI - Last Documented Arterial Blood Pressure 83/48 - Exam Gen. appearance the patient is calm and comfortable, sedated at this point. Orogastric and orotracheal tube are both in place Head exam was generally normal. There was no scleral icterus or corneal arcus. Mucous membranes were moist. Neck was supple and without jugular venous distension, thyromegaly, or carotid bruits. Carotids were easily palpable bilaterally. There was no adenopathy. Lungs were clear to auscultation and percussion, and with normal diaphragmatic excursion. No wheezes or rales were noted. The patient is an obvious clinical lumbar kyphoscoliosis Cardiac exam revealed the PMI to be normally situated and sized. The rhythm was regular and no extrasystoles were noted during several minutes of auscultation. The first and second heart sounds were normal and physiologic splitting of the second heart sound was noted. There were no murmurs, rubs, clicks, or gallops. Abdomen is soft and the patient's surgical one-sided striking and intact. No direct tenderness. Bowel sounds are hypoactive. No rebound tenderness. No guarding. The patient has a colostomy lobe the edges of which are necrotic. REID drain is in place. Surgical one-sided and parker are intact. Minimal amount of serous drainage on the wound surface. Examination of the extremities revealed easily palpable radial, femoral and pedal pulses. There was no cyanosis, clubbing or edema. Examination of the skin revealed no evidence of significant rashes, suspicious appearing nevi or other concerning lesions. Neurologically, the patient is sedated, arousable, moving all 4 extremities, grimacing to painful stimulation. - Labs CBC & Chem 7: 10/10/22 04:17 10/10/22 09:33 Labs: Abnormal Lab Results - Last 24 Hours (Table) 10/08/22 10/09/22 10/09/22 Range/Units 03:39 04:18 04:18 WBC 16.84 H (4.50-10.00) X 10*3/uL RBC 3.27 L (4.10-5.20) X 10*6/uL Hgb 10.0 L (12.0-15.0) g/dL Hct 32.5 L (37.2-46.3) % MCV 99.4 H (80.0-97.0) fL MCHC 30.8 L (32.0-37.0) g/dL Immature Gran # 0.23 H (0.00-0.04) X 10*3/uL Neutrophils # 13.85 H (1.80-7.70) X 10*3/uL Lymphocytes # 0.43 L (0.90-5.00) X 10*3/uL Monocytes # 2.25 H (0.20-1.00) X 10*3/uL Eosinophils # 0 L (0.04-0.35) X 10*3/uL ABG pO2 (83-108) mmHg ABG O2 Saturation (94-97) % Sodium 147 H (135-145) mmol/L Chloride 110 H (96-109) mmol/L Carbon Dioxide (22-30) mmol/L BUN 33.8 H (9.0-27.0) mg/dL Creatinine (0.52-1.04) mg/dL BUN/Creatinine Ratio 37.56 H (12.00-20.00) Ratio Glucose 120 H (70-110) mg/dL POC Glucose (mg/dL) (70-110) mg/dL Calcium 7.9 L (8.7-10.3) mg/dL Magnesium (1.6-2.3) mg/dL Alkaline Phosphatase (38-126) U/L Total Protein (6.3-8.2) g/dL Albumin (3.5-5.0) g/dL HDL Cholesterol 31.70 L (40.00-60.00) mg/dL 10/09/22 10/09/22 10/09/22 Range/Units 11:30 17:21 18:59 WBC (4.50-10.00) X 10*3/uL RBC 2.54 L (4.10-5.20) X 10*6/uL Hgb 8.1 L D (12.0-15.0) g/dL Hct 25.5 L (37.2-46.3) % MCV 100.4 H (80.0-97.0) fL MCHC (32.0-37.0) g/dL Immature Gran # (0.00-0.04) X 10*3/uL Neutrophils # (1.80-7.70) X 10*3/uL Lymphocytes # (0.90-5.00) X 10*3/uL Monocytes # (0.20-1.00) X 10*3/uL Eosinophils # (0.04-0.35) X 10*3/uL ABG pO2 337 H (83-108) mmHg ABG O2 Saturation 100.0 H (94-97) % Sodium (135-145) mmol/L Chloride (96-109) mmol/L Carbon Dioxide (22-30) mmol/L BUN (9.0-27.0) mg/dL Creatinine (0.52-1.04) mg/dL BUN/Creatinine Ratio (12.00-20.00) Ratio Glucose (70-110) mg/dL POC Glucose (mg/dL) 148 H (70-110) mg/dL Calcium (8.7-10.3) mg/dL Magnesium (1.6-2.3) mg/dL Alkaline Phosphatase (38-126) U/L Total Protein (6.3-8.2) g/dL Albumin (3.5-5.0) g/dL HDL Cholesterol (40.00-60.00) mg/dL 10/09/22 10/09/22 10/10/22 Range/Units 18:59 20:17 04:10 WBC (4.50-10.00) X 10*3/uL RBC (4.10-5.20) X 10*6/uL Hgb (12.0-15.0) g/dL Hct (37.2-46.3) % MCV (80.0-97.0) fL MCHC (32.0-37.0) g/dL Immature Gran # (0.00-0.04) X 10*3/uL Neutrophils # (1.80-7.70) X 10*3/uL Lymphocytes # (0.90-5.00) X 10*3/uL Monocytes # (0.20-1.00) X 10*3/uL Eosinophils # (0.04-0.35) X 10*3/uL ABG pO2 (83-108) mmHg ABG O2 Saturation (94-97) % Sodium (135-145) mmol/L Chloride 115 H (96-109) mmol/L Carbon Dioxide (22-30) mmol/L BUN 27 H (9.0-27.0) mg/dL Creatinine (0.52-1.04) mg/dL BUN/Creatinine Ratio (12.00-20.00) Ratio Glucose 106 H (70-110) mg/dL POC Glucose (mg/dL) 116 H 113 H (70-110) mg/dL Calcium 7.0 L (8.7-10.3) mg/dL Magnesium (1.6-2.3) mg/dL Alkaline Phosphatase (38-126) U/L Total Protein 3.1 L (6.3-8.2) g/dL Albumin 1.4 L (3.5-5.0) g/dL HDL Cholesterol (40.00-60.00) mg/dL 10/10/22 10/10/22 10/10/22 Range/Units 04:17 04:17 05:50 WBC 15.6 H (4.50-10.00) X 10*3/uL RBC 2.62 L (4.10-5.20) X 10*6/uL Hgb 8.3 L (12.0-15.0) g/dL Hct 26.0 L (37.2-46.3) % MCV (80.0-97.0) fL MCHC (32.0-37.0) g/dL Immature Gran # (0.00-0.04) X 10*3/uL Neutrophils # (1.80-7.70) X 10*3/uL Lymphocytes # (0.90-5.00) X 10*3/uL Monocytes # (0.20-1.00) X 10*3/uL Eosinophils # (0.04-0.35) X 10*3/uL ABG pO2 132 H (83-108) mmHg ABG O2 Saturation 98.8 H (94-97) % Sodium (135-145) mmol/L Chloride 116 H (96-109) mmol/L Carbon Dioxide 21 L (22-30) mmol/L BUN 30 H (9.0-27.0) mg/dL Creatinine 1.19 H (0.52-1.04) mg/dL BUN/Creatinine Ratio (12.00-20.00) Ratio Glucose 111 H (70-110) mg/dL POC Glucose (mg/dL) (70-110) mg/dL Calcium 6.8 L (8.7-10.3) mg/dL Magnesium 1.5 L (1.6-2.3) mg/dL Alkaline Phosphatase 35 L (38-126) U/L Total Protein 3.5 L (6.3-8.2) g/dL Albumin 1.6 L (3.5-5.0) g/dL HDL Cholesterol (40.00-60.00) mg/dL Microbiology - Last 24 Hours (Table) 10/08/22 22:11 Blood Culture - Preliminary Blood No Growth after 24 hours 10/08/22 13:13 Blood Culture - Preliminary Blood No Growth after 24 hours Assessment and Plan Plan: Bowel necrosis, status post exploratory laparotomy, left colectomy and takedown of the splenic flexure with partial splenectomy. The patient is postoperative day #1 .patient is currently nothing by mouth..REID drain is in place. We will ask surgery to evaluate the surgical stoma. No output at this point in time. Patient remains nothing by mouth. Sepsis secondary to bowel necrosis. There may be also a component of hypovolemia. CVP is low. The patient was aggressively resuscitated with IV fluids. Currently on Prevacid on norepinephrine also. Acute abdomen secondary to above Acute leukocytosis secondary to above Acute respiratory failure, the patient was non-hypoxic, not hypercapnic and the patient was kept intubated following his surgery Severe thoracic kyphoscoliosis History of obstructive sleep apnea History of squamous cell carcinoma of the skin Hypothyroidism Hypertension Degenerative arthritis Plan Continue ventilator support Monitor CVP and continue with fluid boluses. We'll give the patient edition 2 L of normal saline and continue maintenance of 150 mL an hour Continue norepinephrine at 0.1 [place] respiratory lymph node minute and titrate the dose Keep the patient sedated with propofol Continue IV propofol Continue patient nothing by mouth Continue IV Zosyn IV Protonix Monitor output from REID drain Surgery to evaluate the surgical stoma Heparin subcu for DVT prophylaxis Condition is critical and we'll continue to follow. We'll continue to follow. Cardiac care evaluation that was done in more than 30 minutes. Time with Patient: Greater than 30
[2022-10-10 12:14] VITALS: TEMP 98.2
[2022-10-10 12:15] VITALS: BP 101/58
[2022-10-10 12:48] LABS: Glucose,Whole Blood 126 mg/dL (70-110)
[2022-10-10] MEDS ORDERED: ATROPINE OPHTH SOLN 1% 5ML BTL SUBLINGUAL PRN (13:17)
[2022-10-10] MEDS ORDERED: LORazepam 2 MG/ML INJ IV PRN (13:17)
[2022-10-10] MEDS ORDERED: MORPHINE SULFATE 4 MG/ML SYRINGE IVP ONE (13:17)
[2022-10-10] MEDS ORDERED: SODIUM CHLORIDE 0.9% 1,000 ML IV SCH (13:30)
--- NOTE | 2022-10-10 14:00 | P.PN ---
Subjective Progress Note Date: 10/10/22 Pt appears to have necrotic bowl and dusky toes today. Pressor requirement increasing. CVP is 4/5 following IVF bolus. Care discussed with family and they have switched goals to comfort measures. General: intubated, sedated HEENT: normocephalic, atraumatic, no tracheal deviation Respiratory: symmetric chest rise, no cyanosis, ventilator dependent CVS: perfusing all extremities, distal gangrene, no pitting edema GI: ostomy with necrotic tissue, poor output : no SPT, no CVAT, kee is present Neuro: sedated Hospital course: Patient is a very pleasant 72-year-old female with a past medical history of hypertension, anxiety and history of migraines that presents the ED for abdominal pain. Patient reports being treated for UTI 1 week ago with a course of antibiotics. Patient reports abdominal pain that started yesterday. Pain is constant, sharp and stabbing in nature. Pain is 10 out of 10 in severity. Pain is located in bilateral lower quadrants. Pain is associated with nausea and vo miting. Patient reports her last bowel movement was on . She reports foul-smelling odor in her urine. She denies any headache, lower extremity edema, fever or chills, cough, chest pain, shortness breath, palpitations. No changes in appetite or weight. She denies any dizziness, numbness/ weakness/tingling of extremities. In the ED, her vital signs were stable. CBC showed WBC count of 17.2. CMP showed sodium 135, potassium of 5.3, BUN of 61, creatinine of 2.37, glucose of 145, calcium of 8, alkaline phosphatase of 305, total protein of 6. Lipase was 18. Lactic acid was 2.9. Urinalysis was cloudy in appearance. CTAP shows large stool burden throughout the colon and small hiatal hernia. Patient is admitted for severe dehydration. Her acute kidney injury, hyperkalemia and lactic acidosis resolved with IV hydration. General surgery was consulted and recommended enema. Patient has had multiple bowel movements and her abdominal pain has considerably improved. PT and OT evaluated the patient and recommended rehab. Assessment: Small bowel obstruction Ischemic Bowel s/p colon resection and colostomy Hypernatremia New-onset paroxysmal atrial fibrillation with RVR, currently maintaining sinus mechanism Leukocytosis Normocytic anemia Hypertension Anxiety Plan: Patient switched to comfort care -morphine gtt -dilaudid PRN -atropine drops PRN -ativan PRN Pt is DNR/DNI, comfort measures only Objective - Vital Signs Vital signs: Vital Signs Temp 98.2 F 10/10/22 12:00 Pulse 73 10/10/22 12:00 Resp 14 10/10/22 12:00 BP 101/58 10/10/22 09:30 Pulse Ox 100 10/10/22 12:00 FiO2 50 10/10/22 12:00 Intake & Output 10/09/22 10/10/22 10/10/22 18:59 06:59 18:59 Intake Total 4304.866 3550.401 3540.888 Output Total 950 485 385 Balance 3354.866 3065.401 3155.888 Weight 70.7 kg 70.7 kg Intake: IV 4300 1800 3230 ACETAMINOPHEN IV (For NPO 100 ) 1,000 mg In Empty Bag 1 bag @ 400 mls/hr IVPB Q6HR [facility] Rx#:[id number] Invasive Line 5 30 Lactated Ringers 2,000 ml 2000 2000 @ 999 mls/hr IV .Q2H1M [facility] Rx#:[id number] Potassium Chloride 10 meq 200 In Water For Injection 1 100ml.bag @ 100 mls/hr IVPB Q1H [facility] Rx#: [id number] Sodium Chloride 0.9% 1, 1800 900 000 ml @ 150 mls/hr IV . Q6H40M [facility] Rx#:[id number] Intake, IV Titration 4.866 1750.401 310.888 Amount Magnesium Sulfate-D5w Pmx 100 100 1 gm In Dextrose/Water 1 100ml.bag @ 100 mls/hr IVPB Q1H [facility] Rx#: [id number] Norepinephrine 8 mg In 88.980 89.093 Sodium Chloride 0.9% 250 ml @ 0.03 MCG/KG/MIN 3. 423 mls/hr IV .Q24H [facility] Rx#:[id number] Potassium Chloride 10 meq 200 In Water For Injection 1 100ml.bag @ 100 mls/hr IVPB Q1H [facility] Rx#: [id number] Potassium Chloride 10 meq 200 In Water For Injection 1 100ml.bag @ 100 mls/hr IVPB Q1H [facility] Rx#: [id number] Sodium Chloride 0.9% 2, 1000 000 ml @ 999 mls/hr IV . Q2H1M [facility] Rx#:[id number] propofoL 1,000 mg In 4.866 161.421 121.795 Empty Bag 1 bag @ 15 MCG/ KG/MIN 5.307 mls/hr IV . [id number] [facility] Rx#:[id number] Output: Gastric Drainage 150 Drainage 550 Abdomen 550 Urine 300 285 235 Stool 50 150 Estimated Blood Loss 100 Other: Voiding Method Indwelling Catheter Indwelling Catheter Indwelling Catheter # Voids 0 0 ABP, PAP, CO, CI - Last Documented Arterial Blood Pressure 110/55 - Labs CBC & Chem 7: 10/10/22 04:17 10/10/22 09:33 Labs: Abnormal Lab Results - Last 24 Hours (Table) 10/09/22 10/09/22 10/09/22 Range/Units 17:21 18:59 18:59 WBC (3.8-10.6) k/uL RBC 2.54 L (3.80-5.40) m/uL Hgb 8.1 L D (11.4-16.0) gm/dL Hct 25.5 L (34.0-46.0) % MCV 100.4 H (80.0-100.0) fL ABG pO2 337 H (83-108) mmHg ABG O2 Saturation 100.0 H (94-97) % Chloride 115 H (98-107) mmol/L Carbon Dioxide (22-30) mmol/L BUN 27 H (7-17) mg/dL Creatinine (0.52-1.04) mg/dL Glucose 106 H (74-99) mg/dL POC Glucose (mg/dL) (70-110) mg/dL Calcium 7.0 L (8.4-10.2) mg/dL Magnesium (1.6-2.3) mg/dL Alkaline Phosphatase (38-126) U/L Total Protein 3.1 L (6.3-8.2) g/dL Albumin 1.4 L (3.5-5.0) g/dL 10/09/22 10/10/22 10/10/22 Range/Units 20:17 04:10 04:17 WBC 15.6 H (3.8-10.6) k/uL RBC 2.62 L (3.80-5.40) m/uL Hgb 8.3 L (11.4-16.0) gm/dL Hct 26.0 L (34.0-46.0) % MCV (80.0-100.0) fL ABG pO2 (83-108) mmHg ABG O2 Saturation (94-97) % Chloride (98-107) mmol/L Carbon Dioxide (22-30) mmol/L BUN (7-17) mg/dL Creatinine (0.52-1.04) mg/dL Glucose (74-99) mg/dL POC Glucose (mg/dL) 116 H 113 H (70-110) mg/dL Calcium (8.4-10.2) mg/dL Magnesium (1.6-2.3) mg/dL Alkaline Phosphatase (38-126) U/L Total Protein (6.3-8.2) g/dL Albumin (3.5-5.0) g/dL 10/10/22 10/10/22 10/10/22 Range/Units 04:17 05:50 09:25 WBC (3.8-10.6) k/uL RBC (3.80-5.40) m/uL Hgb (11.4-16.0) gm/dL Hct (34.0-46.0) % MCV (80.0-100.0) fL ABG pO2 132 H (83-108) mmHg ABG O2 Saturation 98.8 H (94-97) % Chloride 116 H (98-107) mmol/L Carbon Dioxide 21 L (22-30) mmol/L BUN 30 H (7-17) mg/dL Creatinine 1.19 H (0.52-1.04) mg/dL Glucose 111 H (74-99) mg/dL POC Glucose (mg/dL) 129 H (70-110) mg/dL Calcium 6.8 L (8.4-10.2) mg/dL Magnesium 1.5 L (1.6-2.3) mg/dL Alkaline Phosphatase 35 L (38-126) U/L Total Protein 3.5 L (6.3-8.2) g/dL Albumin 1.6 L (3.5-5.0) g/dL 10/10/22 Range/Units 12:46 WBC (3.8-10.6) k/uL RBC (3.80-5.40) m/uL Hgb (11.4-16.0) gm/dL Hct (34.0-46.0) % MCV (80.0-100.0) fL ABG pO2 (83-108) mmHg ABG O2 Saturation (94-97) % Chloride (98-107) mmol/L Carbon Dioxide (22-30) mmol/L BUN (7-17) mg/dL Creatinine (0.52-1.04) mg/dL Glucose (74-99) mg/dL POC Glucose (mg/dL) 126 H (70-110) mg/dL Calcium (8.4-10.2) mg/dL Magnesium (1.6-2.3) mg/dL Alkaline Phosphatase (38-126) U/L Total Protein (6.3-8.2) g/dL Albumin (3.5-5.0) g/dL Microbiology - Last 24 Hours (Table) 10/08/22 22:11 Blood Culture - Preliminary Blood No Growth after 24 hours 10/08/22 13:13 Blood Culture - Preliminary Blood No Growth after 24 hours
[2022-10-10] MEDS ORDERED: SCOPOLAMINE 1 MG/72 HR PATCH TRANSDERM SCH (14:30)
[2022-10-10] MEDS ORDERED: MORPHINE SULFATE (100 MG/2 ML) 100 MG in SODIUM CHLORIDE 0.9% 100 ML IV SCH (14:30)
--- NOTE | 2022-10-10 15:04 | P.PN ---
Subjective Progress Note Date: 10/10/22 CHIEF COMPLAINT: Constipation HISTORY OF PRESENT ILLNESS: Patient is postop day #1 status post exploratory laparotomy, left colectomy, takedown of splenic flexure and partial splenectomy for ischemic splenic flexure/left colon with bowel necrosis. Patient is in the ICU and intubated and on mechanical ventilation. Patient required Levophed. She did have a temp of 101.8. White count elevated at 15.6 hemoglobin 8.3 platelets 284 magnesium low at 1.5. REID drain with 50 mL serosanguineous output. Patient seen and examined with Dr. Whitaker. Dr. Whitaker did examine the Stoma PHYSICAL EXAM: VITAL SIGNS: Reviewed. GENERAL: intubated and sedated ABDOMEN: Soft. Nondistended. Incision site clean dry and intact with [address] Colostomy on the left side of abdomen. Stoma does have a pinkish center. The mucocutaneous edge of the stoma is dark and dusky in color. ASSESSMENT: 1. Ischemic splenic flexure, left colon with bowel necrosis status post exploratory laparotomy, left colectomy, takedown of splenic flexure and partial splenectomy PLAN: -Continue ICU management. Continue supportive care -Dr. Whitaker did have a long discussion with family at bedside regarding comfort care measures. At this time patient's code status has been changed to no code. The family does not want to proceed with any further surgeries if required. They are leaning towards comfort care. They have been notified to let the nursing staff no when they make their final decision. Physician Freight Separator note has been reviewed by physician. Signing provider agrees with the documented findings, assessment, and plan of care. Objective - Vital Signs Vital signs: Vital Signs Temp 98.2 F 10/10/22 12:00 Pulse 73 10/10/22 12:00 Resp 14 10/10/22 12:00 BP 101/58 10/10/22 09:30 Pulse Ox 100 10/10/22 12:00 FiO2 50 10/10/22 12:00 Intake & Output 10/09/22 10/10/22 10/10/22 18:59 06:59 18:59 Intake Total 4304.866 3550.401 3543.836 Output Total 950 485 385 Balance 3354.866 3065.401 3158.836 Weight 70.7 kg 70.7 kg Intake: IV 4300 1800 3230 ACETAMINOPHEN IV (For NPO 100 ) 1,000 mg In Empty Bag 1 bag @ 400 mls/hr IVPB Q6HR [facility] Rx#:[id number] Invasive Line 5 30 Lactated Ringers 2,000 ml 2000 2000 @ 999 mls/hr IV .Q2H1M [facility] Rx#:[id number] Potassium Chloride 10 meq 200 In Water For Injection 1 100ml.bag @ 100 mls/hr IVPB Q1H [facility] Rx#: [id number] Sodium Chloride 0.9% 1, 1800 900 000 ml @ 150 mls/hr IV . Q6H40M [facility] Rx#:[id number] Intake, IV Titration 4.866 1750.401 313.836 Amount Magnesium Sulfate-D5w Pmx 100 100 1 gm In Dextrose/Water 1 100ml.bag @ 100 mls/hr IVPB Q1H [facility] Rx#: [id number] Norepinephrine 8 mg In 88.980 89.093 Sodium Chloride 0.9% 250 ml @ 0.03 MCG/KG/MIN 3. 423 mls/hr IV .Q24H [facility] Rx#:[id number] Potassium Chloride 10 meq 200 In Water For Injection 1 100ml.bag @ 100 mls/hr IVPB Q1H [facility] Rx#: [id number] Potassium Chloride 10 meq 200 In Water For Injection 1 100ml.bag @ 100 mls/hr IVPB Q1H [facility] Rx#: [id number] Sodium Chloride 0.9% 2, 1000 000 ml @ 999 mls/hr IV . Q2H1M [facility] Rx#:[id number] propofoL 1,000 mg In 4.866 161.421 124.743 Empty Bag 1 bag @ 15 MCG/ KG/MIN 5.307 mls/hr IV . [id number] [facility] Rx#:[id number] Output: Gastric Drainage 150 Drainage 550 Abdomen 550 Urine 300 285 235 Stool 50 150 Estimated Blood Loss 100 Other: Voiding Method Indwelling Catheter Indwelling Catheter Indwelling Catheter # Voids 0 0 ABP, PAP, CO, CI - Last Documented Arterial Blood Pressure 110/55 - Labs CBC & Chem 7: 10/10/22 04:17 10/10/22 09:33 Labs: Abnormal Lab Results - Last 24 Hours (Table) 10/09/22 10/09/22 10/09/22 Range/Units 17:21 18:59 18:59 WBC (3.8-10.6) k/uL RBC 2.54 L (3.80-5.40) m/uL Hgb 8.1 L D (11.4-16.0) gm/dL Hct 25.5 L (34.0-46.0) % MCV 100.4 H (80.0-100.0) fL ABG pO2 337 H (83-108) mmHg ABG O2 Saturation 100.0 H (94-97) % Chloride 115 H (98-107) mmol/L Carbon Dioxide (22-30) mmol/L BUN 27 H (7-17) mg/dL Creatinine (0.52-1.04) mg/dL Glucose 106 H (74-99) mg/dL POC Glucose (mg/dL) (70-110) mg/dL Calcium 7.0 L (8.4-10.2) mg/dL Magnesium (1.6-2.3) mg/dL Alkaline Phosphatase (38-126) U/L Total Protein 3.1 L (6.3-8.2) g/dL Albumin 1.4 L (3.5-5.0) g/dL 10/09/22 10/10/22 10/10/22 Range/Units 20:17 04:10 04:17 WBC 15.6 H (3.8-10.6) k/uL RBC 2.62 L (3.80-5.40) m/uL Hgb 8.3 L (11.4-16.0) gm/dL Hct 26.0 L (34.0-46.0) % MCV (80.0-100.0) fL ABG pO2 (83-108) mmHg ABG O2 Saturation (94-97) % Chloride (98-107) mmol/L Carbon Dioxide (22-30) mmol/L BUN (7-17) mg/dL Creatinine (0.52-1.04) mg/dL Glucose (74-99) mg/dL POC Glucose (mg/dL) 116 H 113 H (70-110) mg/dL Calcium (8.4-10.2) mg/dL Magnesium (1.6-2.3) mg/dL Alkaline Phosphatase (38-126) U/L Total Protein (6.3-8.2) g/dL Albumin (3.5-5.0) g/dL 10/10/22 10/10/22 10/10/22 Range/Units 04:17 05:50 09:25 WBC (3.8-10.6) k/uL RBC (3.80-5.40) m/uL Hgb (11.4-16.0) gm/dL Hct (34.0-46.0) % MCV (80.0-100.0) fL ABG pO2 132 H (83-108) mmHg ABG O2 Saturation 98.8 H (94-97) % Chloride 116 H (98-107) mmol/L Carbon Dioxide 21 L (22-30) mmol/L BUN 30 H (7-17) mg/dL Creatinine 1.19 H (0.52-1.04) mg/dL Glucose 111 H (74-99) mg/dL POC Glucose (mg/dL) 129 H (70-110) mg/dL Calcium 6.8 L (8.4-10.2) mg/dL Magnesium 1.5 L (1.6-2.3) mg/dL Alkaline Phosphatase 35 L (38-126) U/L Total Protein 3.5 L (6.3-8.2) g/dL Albumin 1.6 L (3.5-5.0) g/dL 10/10/22 Range/Units 12:46 WBC (3.8-10.6) k/uL RBC (3.80-5.40) m/uL Hgb (11.4-16.0) gm/dL Hct (34.0-46.0) % MCV (80.0-100.0) fL ABG pO2 (83-108) mmHg ABG O2 Saturation (94-97) % Chloride (98-107) mmol/L Carbon Dioxide (22-30) mmol/L BUN (7-17) mg/dL Creatinine (0.52-1.04) mg/dL Glucose (74-99) mg/dL POC Glucose (mg/dL) 126 H (70-110) mg/dL Calcium (8.4-10.2) mg/dL Magnesium (1.6-2.3) mg/dL Alkaline Phosphatase (38-126) U/L Total Protein (6.3-8.2) g/dL Albumin (3.5-5.0) g/dL Microbiology - Last 24 Hours (Table) 10/08/22 22:11 Blood Culture - Preliminary Blood No Growth after 24 hours 10/08/22 13:13 Blood Culture - Preliminary Blood No Growth after 24 hours
[2022-10-10] MEDS ORDERED: MORPHINE SULFATE 4 MG/ML SYRINGE IV PRN (15:43)
[2022-10-10] MEDS ORDERED: MORPHINE SULFATE 2 MG/ML SYRINGE IV PRN (15:43)
--- NOTE | 2022-10-10 17:20 | CA ---
Transthoracic Echo Report Name: Paola Cuevas Age: 72 Gender: F : 1950 Exam Date: 10/09/2022 07:40 Exam Location: [facility] Ht (in): 69 Wt (lb): 130 Ordering Physician: Tiffany Poole Attending/Referring Phys: [id number], Virgilio Veneer Production Machine Operator Efren Farrell RDCS Procedure CPT: Indications: LVF Cardiac Hx: CHF; AR, MR, TR Technical Quality: Fair Contrast 1: Total Dose (mL): Contrast 2: Total Dose (mL): MEASUREMENTS (Male / Female) Normal Values 2D ECHO LV Diastolic Diameter PLAX 4.5 cm 4.2 - 5.9 / 3.9 - 5.3 cm LV Systolic Diameter PLAX 3.6 cm IVS Diastolic Thickness 0.9 cm 0.6 - 1.0 / 0.6 - 0.9 cm LVPW Diastolic Thickness 1.3 cm 0.6 - 1.0 / 0.6 - 0.9 cm LV Relative Wall Thickness 0.5 LVOT Diameter 2.0 cm LA Systolic Diameter LX 3.7 cm 3.0 - 4.0 / 2.7 - 3.8 cm LV Diastolic Volume MOD BP 80.3 cm??? 67 - 155 / 56 - 104 cm??? LV Systolic Volume MOD BP 32.2 cm??? 22 - 58 / 19 - 49 cm??? LV Ejection Fraction MOD BP 59.9 % >= 55 % LV Diastolic Volume MOD 4C 84.5 cm??? LV Systolic Volume MOD 4C 35.4 cm??? LV Ejection Fraction MOD 4C 58.1 % LV Diastolic Length 4C 7.8 cm LV Systolic Length 4C 5.9 cm LV Diastolic Volume MOD 2C 74.0 cm??? LV Systolic Volume MOD 2C 25.5 cm??? LV Ejection Fraction MOD 2C 65.5 % LV Diastolic Length 2C 7.4 cm LV Systolic Length 2C 5.1 cm M-MODE Aortic Root Diameter MM 2.8 cm LA Systolic Diameter MM 2.1 cm LA Ao Ratio MM 0.7 MV E Point Septal Separation 2.4 cm AV Cusp Separation MM 1.1 cm DOPPLER AV Peak Velocity 126.7 cm/s AV Peak Gradient 6.4 mmHg AI Peak Velocity 492.4 cm/s AI Peak Gradient 97.0 mmHg AI Pressure Half Time 367.3 ms Mitral E Point Velocity 49.7 cm/s Mitral A Point Velocity 88.5 cm/s Mitral E to A Ratio 0.6 MV Deceleration Time 198.5 ms MV E' Velocity 5.1 cm/s Mitral E to MV E' Ratio 9.7 TR Peak Velocity 230.3 cm/s TR Peak Gradient 21.2 mmHg Right Ventricular Systolic Press 29.2 mmHg PV Peak Velocity 89.6 cm/s PV Peak Gradient 3.2 mmHg FINDINGS Left Ventricle Left ventricular ejection fraction is estimated at 55-60 %. Borderline left ventricular hypertrophy. Grade 1 diastolic dysfunction. Normal basal systolic function. Right Ventricle Normal right ventricular size and function. Right Atrium Normal right atrial size. Left Atrium Mild left atrial dilatation. Mitral Valve Moderate thickening/calcification of the anterior mitral valve leaflet. Moderate thickening/calcification of the posterior mitral valve leaflet. Mild mitral annular calcification. Bzeo-my-lsjtpfsl mitral regurgitation. Aortic Valve Trileaflet aortic valve. Diffuse thickening (sclerosis) of the aortic valve cusps without reduced excursion. Newy-wi-wzromdnj aortic regurgitation. Tricuspid Valve Mild tricuspid regurgitation. Pulmonic Valve Trace pulmonic regurgitation. Pericardium Normal pericardium. No pericardial effusion. Aorta Normal size aortic root and proximal ascending aorta. CONCLUSIONS Normal LV systolic function Moderate mitral regurgitation Moderate aortic regurgitation Previewed by: Dr. Aniceto St MD (Electronically Signed) Final Date: 10 October 2022 17:19
--- NOTE | 2022-10-10 18:35 | P.DS ---
Providers Date of admission: 10/02/22 15:24 Expected date of discharge: 10/10/22 Attending physician: German Melendez MD Consults: 10/09/22 16:49 Consult Physician Routine Consulting Provider: Valentina Rogers Consult Reason/Comments: Medical management Do you want consulting provider notified?: Yes Primary care physician: [facility] Course: Assessment: Small bowel obstruction Ischemic Bowel s/p colon resection and colostomy Hypernatremia New-onset paroxysmal atrial fibrillation with RVR, currently maintaining sinus mechanism Leukocytosis Normocytic anemia Hypertension Anxiety Hospital course: Patient is a very pleasant 72-year-old female with a past medical history of hypertension, anxiety and history of migraines that presents the ED for abdomi nal pain. Patient reports being treated for UTI 1 week ago with a course of antibiotics. Patient reports abdominal pain that started yesterday. Pain is constant, sharp and stabbing in nature. Pain is 10 out of 10 in severity. Pain is located in bilateral lower quadrants. Pain is associated with nausea and vomiting. Patient reports her last bowel movement was on . She reports foul-smelling odor in her urine. She denies any headache, lower extremity edema, fever or chills, cough, chest pain, shortness breath, palpitations. No changes in appetite or weight. She denies any dizziness, numbness/weakness/tingling of extremities. In the ED, her vital signs were stable. CBC showed WBC count of 17.2. CMP showed sodium 135, potassium of 5.3, BUN of 61, creatinine of 2.37, glucose of 145, calcium of 8, alkaline phosphatase of 305, total protein of 6. Lipase was 18. Lactic acid was 2.9. Urinalysis was cloudy in appearance. CTAP shows large stool burden throughout the colon and small hiatal hernia. Patient is admitted for severe dehydration. Her acute kidney injury, hyperkalemia and lactic acidosis resolved with IV hydration. General surgery was consulted and recommended enema. Patient has had multiple bowel movements and her abdominal pain has considerably improved. PT and OT evaluated the patient and recommended rehab. Patient's hospital course was complicated by A. fib with RVR and noted that she had elevated white blood cell count from prior lab work, therefore, repeat computed tomography scan was done and showed small bowel obstruction. Patient was subsequently taken to the OR to have lysis of adhesions. Unfortunately, while they're intraoperatively exploring the patient, they noted that patient had ischemic bowel and had to remove part of the spleen as well as significant portion of the large colon. Patient had a end colostomy is consequence and went to the ICU requiring pressors for distributive shock. Unfortunately, the following day she was noted to have necrotic ostomy with very minimal output as well as dusky toes. Patient's family was contacted and wants transition the patient to comfort care which was more in line with her previously stated wishes. Patient at 1755. Patient Condition at Discharge: Good Plan - Discharge Summary Discharge Rx Participant: Yes New Discharge Prescriptions: No Action buPROPion HCL [Wellbutrin XL] 300 mg PO DAILY@1500 PARoxetine HCL [Paxil] 40 mg PO DAILY@1500 atenoloL 25 mg PO DAILY@1500 Rizatriptan Benzoate [Rizatriptan] 10 mg PO DAILY PRN PRN Reason: Migraine Headache Discharge Medication List PARoxetine HCL [Paxil] 40 mg PO DAILY@1500 03/23/19 [History] buPROPion HCL [Wellbutrin XL] 300 mg PO DAILY@1500 03/23/19 [History] Rizatriptan Benzoate [Rizatriptan] 10 mg PO DAILY PRN 02/12/22 [History] atenoloL 25 mg PO DAILY@1500 10/02/22 [History] Follow up Appointment(s)/Referral(s): Adriel Leon MD [Primary Care Provider] - 1-2 days
[2022-10-10 18:39] VITALS: PULSE 0; RESP 0
[2022-10-10] MEDS ORDERED: propofoL 100 ML IV ONE (18:46)
--- NOTE | 2022-10-15 08:55 | CDI ---
Documentation Clarification Form Date: 10/15/2022 From: Nuzhat John Phone: [phone] Admit Date: 10/02/2022 3:24:00 PM Patient Name: Poala Cuevas Visit Number: [id number] Discharge Date: 10/10/2022 9:52:00 PM ATTENTION: The Clinical Documentation Specialists (CDI) and [facility] Coding Staff appreciate your assistance in clarifying documentation. Please respond to the clarification below the line at the bottom and electronically sign. The CDI & [facility] Coding staff will review the response and follow-up if needed. Please note: Queries are made part of the Legal Health Record. If you have any questions, please contact the author of this message via ITS. Dr. German Melendez Sepsis secondary to bowel necrosis is documented in the ICU PN on 10/10. For each diagnosis, documentation must be clear to determine if the condition was present at the time of the patients inpatient admission or developed during the hospital stay. Additional clarification regarding the sepsis is requested. History/Risk Factors: 72yo presented w/ constipation, abdominal pain, lactic acidosis and acute renal failure. CT A/P 10/02: lg stool burden throughout colon, dilated loops of small bowel throughout the abdomen. CT A/P 10/08: small bowel obstruction Proc 10/09: exp lap, left colectomy, takedown of splenic flexure and partial splenectomy ischemic splenic flexure/left colon bowel necrosis Clinical Indicators: Labs 10/02: WBC 17.2, LA 2.9, BUN 61, Creat 2.37 Labs 10/03: WBC 11.9, BUN 65.4, Creat 2.3 Treatment: IV fluid, monitoring, 10/09 - Flagyl IV Definition of Present on Admission (POA): A diagnosis present at the time the order for admission to inpatient status was written. Please clarify if the sepsis was POA [ ] Y = Yes, the condition was present at the time of the order for inpatient admission. [ x ] N = No, the condition was not present at the time of the order for inpatient admission. [ ] W = Clinically undetermined if the condition was present at the time of the order for inpatient admission. (Template Last Revised: October 2020) MTDD
== END 2022-10-10 21:52 | disposition expired | DRG 329 ==
LOC: EC 12:06 → SUPCPDRO 12:06 → 4SSUR 15:24 → 2SICU 10-09 16:26
PROVIDERS: ADMIT Family Medicine; ATTEND Family Medicine
PROC: 07BP0ZZ Excision of Spleen, Open Approach (ICD-10-PCS; 2022-10-09)
PROC: 0D1L0Z4 Bypass Transverse Colon to Cutaneous, Open Approach (ICD-10-PCS; 2022-10-09)
PROC: 0D9670Z Drainage of Stomach with Drainage Device, Via Natural or Artificial Opening (ICD-10-PCS; 2022-10-09)
PROC: 0DTG0ZZ Resection of Left Large Intestine, Open Approach (ICD-10-PCS; principal; 2022-10-09 08:35)
PROC: 02HV33Z Insertion of Infusion Device into Superior Vena Cava, Percutaneous Approach (ICD-10-PCS; 2022-10-10)
PROC: 5A1935Z Respiratory Ventilation, Less than 24 Consecutive Hours (ICD-10-PCS; 2022-10-10)
PROC: 3E033XZ Introduction of Vasopressor into Peripheral Vein, Percutaneous Approach (ICD-10-PCS; 2022-10-10)
DX: K55.029 Acute infarction of small intestine, extent unspecified (principal); A41.9 Sepsis, unspecified organism; J96.00 Acute respiratory failure, unspecified whether with hypoxia or hypercapnia; K63.1 Perforation of intestine (nontraumatic); N17.9 Acute kidney failure, unspecified; K56.50 Intestinal adhesions [bands], unspecified as to partial versus complete obstruction; E87.0 Hyperosmolality and hypernatremia; E87.20 Acidosis, unspecified; N13.4 Hydroureter; I73.01 Raynaud's syndrome with gangrene; Z66 Do not resuscitate; Z51.5 Encounter for palliative care; R57.8 Other shock; M41.84 Other forms of scoliosis, thoracic region; E87.8 Other disorders of electrolyte and fluid balance, not elsewhere classified; D64.9 Anemia, unspecified; I70.0 Atherosclerosis of aorta; F32.A Depression, unspecified; E03.9 Hypothyroidism, unspecified; I10 Essential (primary) hypertension; I08.3 Combined rheumatic disorders of mitral, aortic and tricuspid valves; K44.9 Diaphragmatic hernia without obstruction or gangrene; E87.5 Hyperkalemia; E86.0 Dehydration; I48.0 Paroxysmal atrial fibrillation; E87.6 Hypokalemia; G47.33 Obstructive sleep apnea (adult) (pediatric); M19.90 Unspecified osteoarthritis, unspecified site; R00.1 Bradycardia, unspecified; E86.1 Hypovolemia; F41.9 Anxiety disorder, unspecified; Z96.642 Presence of left artificial hip joint; Z87.891 Personal history of nicotine dependence; Z28.311 Partially vaccinated for COVID-19; Z88.1 Allergy status to other antibiotic agents; Z79.899 Other long term (current) drug therapy
CPT/HCPCS: 36415; 71045; 74176; 74177; 80048; 80053; 80061; 81001; 82150; 82805; 83605; 83690; 83735; 84132; 84443; 85025; 85027; 86850; 86900; 86901; 87040; 88307; 93005; 93306; 94760; 96361; 96374; 96375; 99285